=== PATIENT | female | born 1955 | race Caucasian/White ===

== ENCOUNTER → 2016-10-29 | Outpatient (CLI) | payer BC | END | disposition home or self-care (01) | LOC: MW.CHFP 14:06 | PROVIDERS: ATTEND Emergency Medicine | DX: R73.03 Prediabetes (principal); J01.90 Acute sinusitis, unspecified; R42 Dizziness and giddiness; I10 Essential (primary) hypertension | CPT/HCPCS: 36415; 80048; 83036; 85025; 85652 ==

== ENCOUNTER 2018-10-19 06:34 | Day surgery (SDC) | payer BC ==
[~2018-10-19 06:34] MED LIST: Lactated Ringers 1,000 ML IV SCH; Sodium Chloride 0.9% 10 ML SDV IV PRN; Sodium Chloride 0.9% 10 ML Syringe FLUSH PRN; Sodium Chloride 0.9% 2.5 ML Syringe FLUSH PRN
[2018-10-19] MEDS ORDERED: Bupivacaine 0.5% 10 ML SDV ONE (07:18)
[2018-10-19] MEDS ORDERED: Lidocaine 1% 20 ML MDV ONE (07:19)
[2018-10-19] MEDS ORDERED: methylPREDNISolone Acetate 40 MG/ML SDV INJECT ONE ×2 (07:45→08:15)
[2018-10-19] MEDS ORDERED: fentaNYL 100 MCG/2 ML SDV ONE (07:54)
[2018-10-19] MEDS ORDERED: Propofol 200 MG/20 ML SDV ONE (07:54)
[2018-10-19] MEDS ORDERED: Midazolam 1 MG/ML 2 ML SDV ONE (07:54)
[2018-10-19] MEDS ORDERED: Lidocaine 2% 5 ML SDV ONE (07:55)
[2018-10-19] MEDS ORDERED: Ondansetron 4 MG/2 ML SDV ONE (07:55)
[2018-10-19] MEDS ORDERED: Acetaminophen/HYDROcodone 325-5 MG Tab PO PRN (08:00)
[2018-10-19] MEDS ORDERED: Clindamycin Phosphate in D5W 900 MG in Premix Bag 1 BAG IV SCH ×2 (08:00)
--- NOTE | 2018-10-19 08:02 | PCM.PREANE ---
Preanesthetic Assessment - Anesthesia/Transfusion/Family Hx Anesthesia History: Prior Anesthesia Without Reaction Family History of Anesthesia Reaction: No Transfusion History: No Prior Transfusion(s) - Review of Systems General: No Symptoms Pulmonary: No Symptoms Cardiovascular: No Symptoms Gastrointestinal: No Symptoms Neurological: Other (radicular pain- takes gabipentin, CTS symptoms) - Physical Assessment NPO Status Date: 10/19/18 NPO Status Time: 05:30 O2 Sat by Pulse Oximetry: 97 Respiratory Rate: 18 Vital Signs: Last Vital Signs Temp 96.4 F 10/19/18 06:50 Pulse 58 L 10/19/18 06:50 Resp 18 10/19/18 06:50 BP 150/93 H 10/19/18 06:50 Pulse Ox 97 10/19/18 06:50 Height: 5 ft 3 in Weight: 83.461 kg ASA Class: 2 Mental Status: Alert & Oriented x3 Airway Class: Mallampati = 2 Dentition: Reports: Normal Dentition (overjet) ROM/Head Extension: Full Lungs: Clear to Auscultation, Normal Respiratory Effort Cardiovascular: Regular Rate, Regular Rhythm - Lab Values: Laboratory Last Values POC Glucose 92 mg/dL (60-110) 10/19/18 07:00 - Allergies Allergies/Adverse Reactions: Allergies Allergy/AdvReac Type Severity Reaction Status Date / Time erythromycin base Allergy Hives Verified 10/14/18 14:40 [Erythromycin Base] Fish Containing Products Allergy Difficulty Verified 10/14/18 14:40 Breathing levofloxacin Allergy Difficulty Verified 10/14/18 14:43 Breathing maltose Allergy Hives Verified 10/14/18 14:40 [From Bexxar 131 Iodine] Penicillins Allergy Rash Verified 10/14/18 14:40 shellfish derived Allergy Difficulty Verified 10/14/18 14:40 Breathing tositumomab iodine-131 Allergy Hives Verified 10/14/18 14:40 [From Bexxar 131 Iodine] - Blood Blood Available: No - Anesthesia Plan Pre-Op Medication Ordered: None - Acknowledgements Anesthesia Type Planned: General Anesthesia, MAC Pt an Appropriate Candidate for the Planned Anesthesia: Yes Alternatives and Risks of Anesthesia Discussed w Pt/Guardian: Yes Pt/Guardian Understands and Agrees with Anesthesia Plan: Yes PreAnesthesia Questionnaire HEENT History: Reports: Allergic Rhinitis, Other (See Below) Other HEENT History: wears glasses Cardiovascular History: Reports: High Cholesterol, Hypertension Respiratory History: Reports: None Gastrointestinal History: Reports: Diverticulosis, GERD Genitourinary History: Reports: None 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: Musculoskeletal History: Reports: Osteoarthritis Other Musculoskeletal History: left leg pain Neurological History: Reports: Other (See Below) Other Neuro History: essential tremors Psychiatric History: Reports: None Endocrine/Metabolic History: Reports: Diabetes, Type II, Obesity/BMI 30+ Hematologic History: Reports: None Immunologic History: Reports: None Oncologic (Cancer) History: Reports: None Dermatologic History: Reports: None - Past Surgical History Head Surgeries/Procedures: Reports: None HEENT Surgical History: Reports: None Cardiovascular Surgical History: Reports: None Respiratory Surgical History: Reports: None GI Surgical History: Reports: Colonoscopy Female Surgical History: Reports: Hysterectomy, Salpingo-Oophorectomy, Tubal Ligation Other Female Surgeries/Procedures: hx hysteroscopy Neurological Surgical History: Reports: None Musculoskeletal Surgical History: Reports: Arthroscopic Knee Other Musculoskeletal Surgeries/Procedures:: left foot bunionectomy Oncologic Surgical History: Reports: None Dermatological Surgical History: Reports: None - SUBSTANCE USE Smoking Status *Q: Former Smoker Recreational Drug Use History: No - HOME MEDS Home Medications: Home Meds Calcium Carbonate/Vitamin D3 [Caltrate 600 Plus D3 Tablet] 1 tab PO DAILY [History] Metoprolol Succinate [Toprol XL] 100 mg PO DAILY 09/26/15 [History] Omeprazole Magnesium [Prilosec Otc] 20 mg PO DAILY 09/26/15 [History] atorvaSTATin [Lipitor] 10 mg PO BEDTIME 09/26/15 [History] Ascorbic Acid [Vitamin C] 500 mg PO DAILY 10/14/18 [History] Gabapentin [Neurontin] 300 mg PO ASDIRECTED PRN 10/14/18 [History] Losartan/Hydrochlorothiazide [Losartan-HCTZ 100-25 MG] 1 tab PO DAILY 10/14/18 [ History] metFORMIN HCl [Metformin HCl ER] 500 mg PO BID 10/14/18 [History] - CURRENT (IN HOUSE) MEDS Current Meds: Current Medications Hydrocodone Bitart/Acetaminophen ([place] 325-5 Mg) 1 - 2 tab PO Q4H PRN PRN Reason: Pain Clindamycin Phosphate 900 mg/ (Premix) 50 mls @ 100 mls/hr IV ONCALL [facility] Last Admin: 10/19/18 07:17 Dose: 100 mls/hr Lactated Ringer's (Ringers, Lactated) 1,000 mls @ 100 mls/hr IV ASDIRECTED [facility] Last Admin: 10/19/18 07:00 Dose: 100 mls/hr Lactated Ringer's (Ringers, Lactated) 1,000 mls @ 125 mls/hr IV ASDIRECTED [facility] Sodium Chloride (Saline Flush) 10 ml FLUSH ASDIRECTED PRN PRN Reason: Keep Vein Open Sodium Chloride (Saline Flush) 2.5 ml FLUSH ASDIRECTED PRN PRN Reason: Keep Vein Open Sodium Chloride (Normal Saline) 10 ml IV ASDIRECTED PRN PRN Reason: IV Use Discontinued Medications Bupivacaine HCl (Sensorcaine-Mpf 0.5%) Confirm Administered Dose 20 ml .ROUTE .STK-MED ONE Stop: 10/19/18 07:19 Fentanyl (Sublimaze) Confirm Administered Dose 100 mcg .ROUTE .STK-MED ONE Stop: 10/19/18 07:55 Acetaminophen (Ofirmev) Confirm Administered Dose 100 mls @ as directed IV .STK- MED ONE Stop: 10/19/18 07:56 Lidocaine (Xylocaine-Mpf 2%) Confirm Administered Dose 5 ml .ROUTE .STK-MED ONE Stop: 10/19/18 07:56 Lidocaine HCl (Xylocaine 1%) Confirm Administered Dose 20 ml .ROUTE .STK-MED ONE Stop: 10/19/18 07:20 Methylprednisolone Acetate (Depo-Medrol) 40 mg INJECT ONETIME ONE Stop: 10/19/18 07:46 Midazolam HCl (Versed 1 Mg/Ml) Confirm Administered Dose 2 mg .ROUTE .STK-MED ONE Stop: 10/19/18 07:55 Ondansetron HCl (Zofran) Confirm Administered Dose 4 mg .ROUTE .STK-MED ONE Stop: 10/19/18 07:56 Propofol (Diprivan 20 Ml) Confirm Administered Dose 200 mg .ROUTE .STK-MED ONE Stop: 10/19/18 07:55
[2018-10-19 08:58] VITALS: BP 125/73
--- NOTE | 2018-10-19 09:12 | PCM.OPNOTE ---
- General Post-Op/Procedure Note Date of Surgery/Procedure: 10/19/18 Operative Procedure(s): L CTR. injection L and R thumb A1 meet Post-Op Diagnosis: L CTS, L and R thumb trigger finger Anesthesia Technique: Local, Moderate Sedation Primary Surgeon: Brittany Bazan Aemt: Isabella Weber in mLs: 5 Condition: Good Free Text/Narrative:: [id number]# tt=2 min
--- NOTE | 2018-10-19 09:14 | PCM.POSTAN ---
POST ANESTHESIA ASSESSMENT - MENTAL STATUS Mental Status: Alert, Oriented - RESPIRATORY Respiratory Status: Respiratory Rate WNL, Airway Patent, O2 Saturation Stable - CARDIOVASCULAR CV Status: Pulse Rate WNL, Blood Pressure Stable - GASTROINTESTINAL GI Status: No Symptoms - POST OP HYDRATION Hydration Status: Adequate & Stable
--- NOTE | 2018-10-19 09:14 | PCM48HPAN ---
Post Anesthesia Note - EVALUATION WITHIN 48HRS OF ANESTHETIC Vital Signs in Normal Range: Yes Patient Participated in Evaluation: Yes Respiratory Function Stable: Yes Airway Patent: Yes Cardiovascular Function Stable: Yes Hydration Status Stable: Yes Pain Control Satisfactory: Yes Nausea and Vomiting Control Satisfactory: Yes Mental Status Recovered: Yes Resp Rate: 16
[2018-10-19] MEDS ORDERED: fentaNYL 100 MCG/2 ML SDV IVPUSH PRN (09:16)
--- NOTE | 2018-10-19 13:57 | OR ---
SURGEON: Brittany Bazan MD DATE OF PROCEDURE: 10/19/2018 PREOPERATIVE DIAGNOSES: 1. Left carpal tunnel syndrome. 2. Left thumb trigger finger. 3. Right thumb trigger finger. POSTOPERATIVE DIAGNOSES: 1. Left carpal tunnel syndrome. 2. Left thumb trigger finger. 3. Right thumb trigger finger. PROCEDURES: 1. Left open carpal tunnel release. 2. Injection of left thumb A1 meet (tendon sheath). 3. Injection of right thumb A1 meet (tendon sheath). PAPER CUTTING MACHINE OPERATOR: Isabella Weber PA-C. ANESTHESIA: Local with sedation. ESTIMATED BLOOD LOSS: 5 mL. TOURNIQUET TIME: 2 minutes. COMPLICATIONS: None. DVT PROPHYLAXIS: Not indicated. IMPLANTS USED: None. BRIEF HISTORY: Riri is a 63-year-old female, who has had complaint of bilateral carpal tunnel syndrome. EMG/nerve conduction studies did confirm this. Her left was most symptomatic. Due to her lack of response to conservative treatment, I did recommend surgical intervention. She has also noted persistent triggering along the A1 meet of both thumbs. I recommended that we proceed with injection of this while she is under sedation. The risks and goals of the procedures were discussed with the patient and were documented preoperatively. She agreed to proceed. DESCRIPTION OF PROCEDURE: The patient was properly identified and brought to the operating room. The patient was transferred from the operating room cart and placed on the operating room table in the supine position. Sedation was administered. After adequate sedation was achieved, a well-padded tourniquet was applied to the left forearm. The upper extremity was then prepped in standard fashion using ChloraPrep solution. It was then sterilely draped. A time-out was performed to ensure correct site and procedure. Preoperative antibiotics were given. The surgical site had been marked preoperatively. A mixture of 1% Lidocaine and 0.25% Marcaine were injected along the area of anticipated incision. An Esmarch was used to exsanguinate the left upper extremity and the tourniquet was inflated to 200 millimeters of mercury. A fifteen blade scalpel used to make an incision over the volar aspect of the hand. The subcutaneous tissues and palmar fascia were incised down to the level of the transverse carpal ligament. Transverse carpal ligament was then incised. Care was taken to release the ligament distally to the level of fat and proximally into the forearm. At the completion, we had good decompression of the median nerve. No other abnormalities were identified. The wound was then copiously irrigated with saline solution. The tourniquet was deflated. Electrocautery was used to maintain hemostasis. The incision site was closed with 4-0 nylon. Xeroform gauze was placed over the wound and a bulky dressing was applied. The patient was awakened from the sedation and transferred back to the operating room cart. The patient was brought to the recovery room in stable condition. All needle and sponge counts were correct. DENA / KRYSTIAN /[id number]
== END 2018-10-19 09:22 | disposition home or self-care (01) ==
LOC: MW.SDS 06:34 → EDSTATUS 08:30 → MW.SDS 09:22
PROVIDERS: ATTEND Orthopaedic Surgery
DX: G56.03 Carpal tunnel syndrome, bilateral upper limbs (principal); M65.312 Trigger thumb, left thumb; M65.311 Trigger thumb, right thumb; I10 Essential (primary) hypertension; E11.9 Type 2 diabetes mellitus without complications; E78.00 Pure hypercholesterolemia, unspecified; K21.9 Gastro-esophageal reflux disease without esophagitis; M17.11 Unilateral primary osteoarthritis, right knee; Z88.1 Allergy status to other antibiotic agents; Z91.013 Allergy to seafood; Z88.0 Allergy status to penicillin; Z87.891 Personal history of nicotine dependence; Z79.84 Long term (current) use of oral hypoglycemic drugs; Z79.899 Other long term (current) drug therapy; Z91.048 Other nonmedicinal substance allergy status
CPT/HCPCS: 64721; 82962; J0131; J2001; J2250; J2405; J2704; J3010; J3490; J7120

== ENCOUNTER 2020-04-08 06:56 | Inpatient (IN) | payer BC ==
[~2020-04-08 06:56] MED LIST changes: +Famotidine 20 MG/2 ML SDV IVPUSH SCH; -Lactated Ringers 1,000 ML IV SCH; +Ropivacaine 49.25 ML, Ketorolac 30 MG, EPINEPHrine 0.5 MG, cloNIDine 80 MCG in Sodium C... INJECT SCH; +Scopolamine 1.5 MG Transdermal Patch TRDERM SCH; -Sodium Chloride 0.9% 10 ML SDV IV PRN; -Sodium Chloride 0.9% 10 ML Syringe FLUSH PRN; -Sodium Chloride 0.9% 2.5 ML Syringe FLUSH PRN
[2020-04-08] MEDS ORDERED: Propofol 200 MG/20 ML SDV ONE (07:06)
[2020-04-08] MEDS ORDERED: fentaNYL 100 MCG/2 ML SDV ONE (07:06)
[2020-04-08] MEDS ORDERED: Midazolam 1 MG/ML 2 ML SDV ONE (07:07)
[2020-04-08] MEDS ORDERED: Ondansetron 4 MG/2 ML SDV ONE (07:09)
[2020-04-08] MEDS ORDERED: Lidocaine 2% 5 ML SDV ONE (07:09)
[2020-04-08] MEDS ORDERED: Glycopyrrolate 0.2 MG/ML SDV ONE (07:09)
[2020-04-08] MEDS ORDERED: Ketorolac 30 MG/ML SDV ONE (07:09)
[2020-04-08] MEDS ORDERED: Bupivacaine 0.5% 10 ML SDV ONE (07:21)
[2020-04-08] MEDS ORDERED: Scopolamine 1.5 MG Transdermal Patch ONE (07:26)
[2020-04-08] MEDS ORDERED: Famotidine 20 MG/2 ML SDV ONE (07:29)
[2020-04-08] MEDS ORDERED: ceFAZolin 1 GM Vial ONE (07:56)
[2020-04-08] MEDS ORDERED: Sodium Chloride 0.9% 20 ML ONE (07:56)
[2020-04-08] MEDS ORDERED: Tranexamic Acid 1,000 MG in Sodium Chloride 0.9% 100 ML IV ONE (08:00)
--- NOTE | 2020-04-08 08:13 | PCM.PREANE ---
Preanesthetic Assessment - Anesthesia/Transfusion/Family Hx Anesthesia History: Prior Anesthesia Without Reaction Family History of Anesthesia Reaction: No Transfusion History: No Prior Transfusion(s) Intubation History: Unknown - Review of Systems General: No Symptoms Pulmonary: No Symptoms Cardiovascular: No Symptoms Gastrointestinal: No Symptoms Neurological: No Symptoms Other: Reports: None - Physical Assessment Height: 5 ft Weight: 86.636 kg ASA Class: 3 Mental Status: Alert & Oriented x3 Airway Class: Mallampati = 2 Dentition: Reports: Normal Dentition Thyro-Mental Finger Breadths: 2 Mouth Opening Finger Breadths: 3 ROM/Head Extension: Full Lungs: Clear to Auscultation, Normal Respiratory Effort Cardiovascular: Regular Rate, Regular Rhythm - Lab Values: Laboratory Last Values SARS-CoV-2 RNA (COCO) NEGATIVE (NEGATIVE) 04/08/20 06:43 - Allergies Allergies/Adverse Reactions: Allergies Allergy/AdvReac Type Severity Reaction Status Date / Time erythromycin base Allergy Hives Verified 04/02/20 10:59 [Erythromycin Base] Fish Containing Products Allergy Difficulty Verified 04/02/20 10:59 Breathing levofloxacin Allergy Difficulty Verified 04/02/20 10:59 Breathing maltose Allergy Hives Verified 04/02/20 10:59 [From Bexxar 131 Iodine] Penicillins Allergy Rash Verified 04/02/20 10:59 shellfish derived Allergy Difficulty Verified 04/02/20 10:59 Breathing tositumomab iodine-131 Allergy Hives Verified 04/02/20 10:59 [From Bexxar 131 Iodine] - Blood Blood Available: No - Anesthesia Plan Pre-Op Medication Ordered: None - Acknowledgements Anesthesia Type Planned: Spinal (general anesthesia back-up call) Pt an Appropriate Candidate for the Planned Anesthesia: Yes Alternatives and Risks of Anesthesia Discussed w Pt/Guardian: Yes Pt/Guardian Understands and Agrees with Anesthesia Plan: Yes PreAnesthesia Questionnaire HEENT History: Reports: Allergic Rhinitis, Other (See Below) Other HEENT History: wears glasses Cardiovascular History: Reports: High Cholesterol, Hypertension Respiratory History: Reports: None Gastrointestinal History: Reports: Diverticulosis, GERD Genitourinary History: Reports: None 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: Musculoskeletal History: Reports: Osteoarthritis Other Musculoskeletal History: left leg pain Neurological History: Reports: Other (See Below) Other Neuro History: essential tremors Psychiatric History: Reports: None Endocrine/Metabolic History: Reports: Diabetes, Type II, Obesity/BMI 30+ Other Endocrine/Metabolic History: states is not diabetic but takes metformin to "keep the levels good" Hematologic History: Reports: None Immunologic History: Reports: None Oncologic (Cancer) History: Reports: None Dermatologic History: Reports: None, Other (See Below) (lymphedema lower extremity) - Past Surgical History GI Surgical History: Reports: Colonoscopy ('13) Female Surgical History: Reports: Hysterectomy, Salpingo-Oophorectomy, Tubal Ligation Musculoskeletal Surgical History: Reports: Arthroscopic Knee Other Musculoskeletal Surgeries/Procedures:: left foot bunionectomy - SUBSTANCE USE Smoking Status *Q: Former Smoker Tobacco Use Within Last Twelve Months: No Recreational Drug Use History: No - HOME MEDS Home Medications: Home Meds Calcium Carbonate/Vitamin D3 [Caltrate 600 Plus D3 Tablet] 1 tab PO DAILY 09/26/15 [History] Metoprolol Succinate [Toprol XL] 100 mg PO QAM 09/26/15 [History] Omeprazole Magnesium [Prilosec Otc] 20 mg PO QAM 09/26/15 [History] atorvaSTATin [Lipitor] 10 mg PO BEDTIME 09/26/15 [History] Ascorbic Acid [Vitamin C] 500 mg PO DAILY 10/14/18 [History] Gabapentin [Neurontin] 600 mg PO TID PRN 10/14/18 [History] metFORMIN HCl [Metformin HCl ER] 500 mg PO BID 10/14/18 [History] Acetaminophen [Tylenol 8 Hour] 2 tab PO TID 04/02/20 [History] Losartan Potassium 100 mg PO QAM 04/02/20 [History] hydroCHLOROthiazide [Hydrochlorothiazide] 25 mg PO QAM 04/02/20 [History] - CURRENT (IN HOUSE) MEDS Current Meds: Current Medications Famotidine (Pepcid) 40 mg IVPUSH ONARRIVE [facility] Tranexamic Acid 1,000 mg/ (Sodium Chloride) 110 mls @ 600 mls/hr IV ASDIRECTED ONE Stop: 04/08/20 08:10 Ropivacaine 49.25 ml/Ketorolac Tromethamine 30 mg/Epinephrine HCl 0.5 mg/Clonidine HCl 80 mcg/ Sodium Chloride 75 mls @ 50 mls/sec INJECT ASDIRECTED [facility] Clindamycin Phosphate 900 mg/ (Premix) 50 mls @ 100 mls/hr IV ONCALL [facility] Lactated Ringer's (Ringers, Lactated) 1,000 mls @ 100 mls/hr IV ASDIRECTED [facility] Scopolamine (Transderm-Scop) 1.5 mg TRDERM ONARRIVE [facility] Discontinued Medications Bupivacaine HCl (Sensorcaine-Mpf 0.5%) Confirm Administered Dose 10 ml .ROUTE .STK-MED ONE Stop: 04/08/20 07:22 Cefazolin Sodium (Ancef) Confirm Administered Dose 2 gm .ROUTE .STK-MED ONE Stop: 04/08/20 07:57 Famotidine (Pepcid) Confirm Administered Dose 40 mg .ROUTE .STK-MED ONE Stop: 04/08/20 07:30 Fentanyl (Sublimaze) Confirm Administered Dose 100 mcg .ROUTE .STK-MED ONE Stop: 04/08/20 07:07 Glycopyrrolate (Robinul) Confirm Administered Dose 0.2 mg .ROUTE .STK-MED ONE Stop: 04/08/20 07:10 Sodium Chloride (Normal Saline) Confirm Administered Dose 20 mls @ as directed .ROUTE .STK-MED ONE Stop: 04/08/20 07:57 Ketorolac Tromethamine (Toradol) Confirm Administered Dose 30 mg .ROUTE .STK-MED ONE Stop: 04/08/20 07:10 Lidocaine (Xylocaine-Mpf 2%) Confirm Administered Dose 5 ml .ROUTE .STK-MED ONE Stop: 04/08/20 07:10 Midazolam HCl (Versed 1 Mg/Ml) Confirm Administered Dose 2 mg .ROUTE .STK-MED ONE Stop: 04/08/20 07:08 Ondansetron HCl (Zofran) Confirm Administered Dose 4 mg .ROUTE .STK-MED ONE Stop: 04/08/20 07:10 Propofol (Diprivan 20 Ml) Confirm Administered Dose 200 mg .ROUTE .STK-MED ONE Stop: 04/08/20 07:07 Scopolamine (Transderm-Scop) Confirm Administered Dose 1.5 mg .ROUTE .STK-MED ONE Stop: 04/08/20 07:27
[2020-04-08] MEDS: Clindamycin Phosphate in D5W 900 MG in Premix Bag 1 BAG IV SCH ×8 (08:31→19:54)
[2020-04-08] MEDS: Lactated Ringers 1,000 ML IV SCH ×2 (08:31→22:37)
[2020-04-08] MEDS ORDERED: Bupivacaine 0.25% 10 ML SDV ONE (11:03)
[2020-04-08] MEDS ORDERED: Bisacodyl 10 MG Supp RECTAL PRN (11:06)
[2020-04-08] MEDS ORDERED: traMADol 50 MG Tab PO PRN (11:06)
[2020-04-08] MEDS ORDERED: Sodium Chloride 0.9% 2.5 ML Syringe FLUSH PRN (11:06)
[2020-04-08] MEDS ORDERED: oxyCODONE 5 MG Tab PO PRN (11:06)
[2020-04-08] MEDS ORDERED: Docusate Sodium 100 MG Cap PO PRN (11:06)
[2020-04-08] MEDS ORDERED: Morphine 2 MG/ML SYRINGE IVPUSH PRN (11:06)
[2020-04-08] MEDS ORDERED: Ondansetron 4 MG/2 ML SDV IVPUSH PRN (11:06)
[2020-04-08] MEDS ORDERED: Aluminum Hydroxide/Magnesium Hydroxide/Simethicone Susp 30 ML Cup PO PRN (11:06)
[2020-04-08] MEDS ORDERED: diphenhydrAMINE 25 MG Cap PO PRN (11:06)
[2020-04-08] MEDS ORDERED: Sodium Chloride 0.9% 10 ML Syringe FLUSH PRN (11:06)
--- NOTE | 2020-04-08 11:27 | PCM.OPNOTE ---
- General Post-Op/Procedure Note Date of Surgery/Procedure: 04/08/20 Operative Procedure(s): Right total knee replacement using Leblanc and NephNavendis knee system Findings: Right knee medial compartment grade 4 arthritis, lateral compartment grade 1 arthritis, patellofemoral joint grade 2 arthritis Pre Op Diagnosis: Right knee grade 4 medial compartment osteoarthritis Post-Op Diagnosis: Right knee grade 4 medial compartment osteoarthritis Anesthesia Technique: General LMA, Spinal Primary Surgeon: Prakash Centeno Mechanical Assembly: Bria Mcdonald Mechanical Assembly Was Necessary: Retraction and positioning Pathology: Bone cuts and soft tissue excised to pathology for review EBL in mLs: 5 Complications: None Free Text/Narrative:: The risks and benefits of surgery were reviewed with the patient. Patient was medically optimized and cleared for surgery. Patient consented to proceed with surgery. Patient was taken to the operating room. After adequate spinal and general anesthesia, she was placed in a supine position. Tourniquet was placed around the right proximal thigh. Right lower extremities prepped and draped in usual sterile manner. The leg elevated and the tourniquet inflated. Midline incision centered over the patella was made with a scalpel. Subcutaneous tissue was incised electrocautery. Medial parapatellar arthrotomy was performed and the patella was everted laterally. Soft tissues were excised. The distal femur was exposed. An intramedullary cutting guide was used. The femur was sized to a #4 cruciate retaining component. Lug holes were punched. The tibia was cut with an intramedullary alignment guide. The tibia sized to #4. Patient had good range of motion and stability with a 13 millimeter polyethylene insert. The patella was cut with a constrained cutting guide. Soft tissues and osteophytes were removed with a rongeur. The patella was sized to a 35 mm resurfacing component. Trial components were removed. Bone surfaces were pulse lavaged. The components were sequentially cemented with antibiotic cement starting at the #4 tibia, excess cement was removed, and the 3 mm polyethylene insert inserted. The femoral cruciate retaining #4 component was inserted and excess antibiotic cement removed. The 35 mm patellar polyethylene component was cemented and excess cement removed. The cement was allowed to harden and the knee was reinspected removing any excess cement. Periarticular injections were performed with the multidrug cocktail. The joint was pulse lavage. The retinaculum was repaired with interrupted #1 Vicryl sutures. Deep subcutaneous tissue was closed with #1 interrupted Vicryl suture. Subcutaneous tissue was closed with interrupted 2-0 Vicryl sutures. Running subcuticular Monocryl suture was used for final closure. Sterile dressings were applied and the patient was accompanied to recovery in stable condition. Pain management: Periarticular injections, abductor canal nerve block, Toradol, oxycodone, acetaminophen. Venous thromboembolism prophylaxis: Aspirin enteric-coated 325 mg daily for 90 days because patient has no personal or family history of venous thromboembolic events. Antibiotic prophylaxis: Patient will receive clindamycin intravenous for 24 hours. Because she is high risk for infection with her diabetes and soft tissue envelope around the knee, she will have oral antibiotics for 7 days after completing her intravenous antibiotics. Restrictions: Patient is weightbearing as tolerated on her right lower extremity with assistive device as needed. She has full range of motion of the knee. She should receive physical therapy according the total knee arthroplasty protocol. No restrictions. Intake & Output 04/07/20 04/08/20 04/08/20 22:59 06:59 14:59 Intake Total 0 Balance 0
--- NOTE | 2020-04-08 12:06 | PCM.POSTAN ---
POST ANESTHESIA ASSESSMENT - MENTAL STATUS Mental Status: Alert - VITAL SIGNS Vital Signs: Last Vital Signs Temp 37.0 C 04/08/20 10:58 Pulse 61 04/08/20 11:58 Resp 14 04/08/20 11:58 BP 107/60 04/08/20 11:58 Pulse Ox 96 04/08/20 11:58 - RESPIRATORY Respiratory Status: Respiratory Rate WNL - CARDIOVASCULAR CV Status: Pulse Rate WNL - GASTROINTESTINAL GI Status: No Symptoms - POST OP HYDRATION Hydration Status: Adequate & Stable
--- NOTE | 2020-04-08 12:06 | PCM.PRNOTE ---
- Free Text/Narrative Note: Anes Note Right adductor canal block with ultrasound guidance performed as requested by surgoen for post op pain relief. IN the PACu, while fully monitroed this block was performed under sterile technique. The right anterior thigh was prepped with betadine. Using ultrasound guidance, the landmarks were identified at 3-4 cm depth. The nerve was identified just lateral and posterior to the femoral artery. Excellent spread of local anesthesia was noted, just posterior tot he nerve. Careful aspiration resulted in no blood return. A total of 30 cc 0.25% bupivicaine was slowly and cautious injected in divided doses. Tolerated well. Time with patient [id number] Roberto Cruz CRNA
--- NOTE | 2020-04-08 12:38 | PCM.CONS ---
H&P History of Present Illness - General Date of Service: 04/08/20 Admit Problem/Dx: Right knee osteoarthritis s/p RIGHT TOTAL KNEE ARTHROPLASTY Source of Information: Patient History Limitations: Reports: No Limitations - History of Present Illness Initial Comments - Free Text/Narative: This 64-year-old female with past medical history of hypertension hyperlipidemia essential tremor and type 2 diabetes presented today for right TKA with Dr. Centeno. Hospital service was consulted for medical management of comorbidities. Patient recently arrived to [facility] unit from PACU. She is alert and oriented. Complaining of right-sided headache and requesting some Tylenol. Denies any blurred vision double vision or other focal neurological deficits. She denies any knee pain at this time. Reports that she has been doing well prior to surgery. Reports that if she has a history of hypertension and has been compliant with medications at home. Reports A1c recently was 6.1, she is taking metformin. She currently denies any chest pain shortness of breath or abdominal pain. Reports she has a family history of CT in her father who had a CT in his 40s. She denies any alcohol use tobacco use or recreational drug use. - Related Data Allergies/Adverse Reactions: Allergies Allergy/AdvReac Type Severity Reaction Status Date / Time erythromycin base Allergy Hives Verified 04/08/20 08:34 [Erythromycin Base] Fish Containing Products Allergy Difficulty Verified 04/08/20 08:34 Breathing levofloxacin Allergy Difficulty Verified 04/08/20 08:34 Breathing maltose Allergy Hives Verified 04/08/20 08:34 [From Bexxar 131 Iodine] Penicillins Allergy Rash Verified 04/08/20 08:34 shellfish derived Allergy Difficulty Verified 04/08/20 08:34 Breathing tositumomab iodine-131 Allergy Hives Verified 04/08/20 08:34 [From Bexxar 131 Iodine] Home Medications: Home Meds Calcium Carbonate/Vitamin D3 [Caltrate 600 Plus D3 Tablet] 1 tab PO DAILY 09/26/15 [History] Metoprolol Succinate [Toprol XL] 100 mg PO QAM 09/26/15 [History] Omeprazole Magnesium [Prilosec Otc] 20 mg PO QAM 09/26/15 [History] atorvaSTATin [Lipitor] 10 mg PO BEDTIME 09/26/15 [History] Ascorbic Acid [Vitamin C] 500 mg PO DAILY 10/14/18 [History] Gabapentin [Neurontin] 600 mg PO TID PRN 10/14/18 [History] metFORMIN HCl [Metformin HCl ER] 500 mg PO BID 10/14/18 [History] Acetaminophen [Tylenol 8 Hour] 2 tab PO TID 04/02/20 [History] Losartan Potassium 100 mg PO QAM 04/02/20 [History] hydroCHLOROthiazide [Hydrochlorothiazide] 25 mg PO QAM 04/02/20 [History] Aspirin 325 mg PO DAILY #90 tablet 04/08/20 [Rx] Clindamycin HCl 300 mg PO TID 7 Days #21 capsule 04/08/20 [Rx] Docusate Sodium [Colace] 100 mg PO BID PRN cap 04/08/20 [Rx] polyethylene glycoL 3350 [MiraLAX] 17 gm PO DAILY packet 04/08/20 [Rx] Past Medical History HEENT History: Reports: Allergic Rhinitis, Other (See Below) Other HEENT History: wears glasses Cardiovascular History: Reports: High Cholesterol, Hypertension Respiratory History: Reports: None Gastrointestinal History: Reports: Diverticulosis, GERD Genitourinary History: Reports: None [employer] History: Reports: Musculoskeletal History: Reports: Osteoarthritis Other Musculoskeletal History: left leg pain Neurological History: Reports: Other (See Below) Other Neuro History: essential tremors Psychiatric History: Reports: None Endocrine/Metabolic History: Reports: Diabetes, Type II, Obesity/BMI 30+ Other Endocrine/Metabolic History: states is not diabetic but takes metformin to "keep the levels good" Hematologic History: Reports: None Immunologic History: Reports: None Oncologic (Cancer) History: Reports: None Dermatologic History: Reports: None, Other (See Below) - Past Surgical History Head Surgeries/Procedures: Reports: None HEENT Surgical History: Reports: None Cardiovascular Surgical History: Reports: None Respiratory Surgical History: Reports: None GI Surgical History: Reports: Colonoscopy Female Surgical History: Reports: Hysterectomy, Salpingo-Oophorectomy, Tubal Ligation Other Female Surgeries/Procedures: hx hysteroscopy Neurological Surgical History: Reports: None Musculoskeletal Surgical History: Reports: Arthroscopic Knee Other Musculoskeletal Surgeries/Procedures:: left foot bunionectomy Oncologic Surgical History: Reports: None Dermatological Surgical History: Reports: None Social & Family History - Tobacco Use Smoking Status *Q: Former Smoker Used Tobacco, but Quit: Yes Month/Year Tobacco Last Used: 2001 - Recreational Drug Use Recreational Drug Use: No Drug Use in Last 12 Months: No H&P Review of Systems - Review of Systems: Review Of Systems: See Below General: Reports: No Symptoms. Denies: Fever, Chills, Malaise HEENT: Reports: Headaches Pulmonary: Reports: No Symptoms. Denies: Shortness of Breath Cardiovascular: Reports: No Symptoms. Denies: Chest Pain Gastrointestinal: Denies: Abdominal Pain Genitourinary: Reports: No Symptoms Musculoskeletal: Reports: No Symptoms Skin: Reports: No Symptoms Psychiatric: Reports: No Symptoms Neurological: Reports: No Symptoms Hematologic/Lymphatic: Reports: No Symptoms Immunologic: Reports: No Symptoms Exam - Exam Exam: See Below - Vital Signs Vital Signs: Last Vital Signs Temp 98.6 F 04/08/20 10:58 Pulse 61 04/08/20 11:58 Resp 14 04/08/20 11:58 BP 107/60 04/08/20 11:58 Pulse Ox 96 04/08/20 11:58 Weight: 86.636 kg - Exam General: Alert, Oriented, Cooperative HEENT: Conjunctiva Clear, Hearing Intact, Mucosa Moist & Pabellones, Pupils Equal, Pupils Reactive Neck: Supple Lungs: Clear to Auscultation, Normal Respiratory Effort Cardiovascular: Regular Rate, Regular Rhythm GI/Abdominal Exam: Normal Bowel Sounds, Soft, Non-Tender Extremities: Normal Inspection, Normal Range of Motion, Non-Tender, Normal Capillary Refill, Pedal Edema (+1 pitting edema bilaterally) Skin: Warm, Dry, Intact, Incision (R knee, SRINATH wrap intact) Neurological: Cranial Nerves Intact Neuro Extensive - Mental Status: Alert, Oriented x3 Neuro Extensive - Motor, Sensory, Reflexes: CN II-XII Intact Psychiatric: Alert, Normal Affect, Normal Mood - Patient Data Lab Results Last 24 hrs: Laboratory Results - last 24 hr 04/08/20 04/08/20 04/08/20 Range/Units 06:43 07:58 08:05 POC Glucose 96 (60-110) mg/dL SARS-CoV-2 RNA (COCO) NEGATIVE (NEGATIVE) Blood Type A POSITIVE Antibody Screen NEGATIVE 04/08/20 Range/Units 11:42 POC Glucose 87 (60-110) mg/dL SARS-CoV-2 RNA (COCO) (NEGATIVE) Blood Type Antibody Screen Sepsis Event Note - Focused Exam Vital Signs: Vital Signs Temp Pulse Resp BP Pulse Ox 04/08/20 11:58 61 14 107/60 96 04/08/20 11:53 60 13 110/50 L 96 04/08/20 11:48 59 L 14 113/57 L 95 04/08/20 11:43 58 L 14 101/57 L 97 04/08/20 11:40 60 13 111/56 L 97 04/08/20 11:33 61 11 L 111/48 L 97 04/08/20 11:28 63 15 109/52 L 96 04/08/20 11:23 63 13 99/47 L 100 04/08/20 11:18 61 14 114/50 L 98 04/08/20 11:13 67 12 96/51 L 97 04/08/20 11:08 64 14 104/49 L 96 04/08/20 11:04 68 12 103/52 L 96 04/08/20 10:58 98.6 F 70 13 119/49 L 97 04/08/20 08:10 96.6 F L 62 16 183/83 H 98 Consult PN Assessment/Plan POD#: 0 Procedures: Procedures ALANINE AMINO (ALT) (SGPT) (05/10/19) ASSAY OF SERUM POTASSIUM (05/10/15) BLOOD TYPING SEROLOGIC ABO (09/30/15) BLOOD TYPING SEROLOGIC RH(D) (09/30/15) BREAST TOMOSYNTHESIS BI (09/07/19) C-REACTIVE PROTEIN (05/18/17) CARPAL TUNNEL SURGERY (10/19/18) COMP SCREEN MAMMOGRAM ADD-ON (05/19/16) COMPLETE CBC AUTOMATED (03/19/20) COMPLETE CBC W/AUTO DIFF WBC (05/18/17) COMPREHEN METABOLIC PANEL (04/19/17) CULTURE OTHR SPECIMN AEROBIC (03/19/20) CYTOPATH FL NONGYN SMEARS (09/30/15) DXA BONE DENSITY AXIAL (05/19/16) ELECTROCARDIOGRAM TRACING (09/30/15) EXTREMITY STUDY (11/09/19) GLUCOSE BLOOD TEST (10/19/18) GLYCOSYLATED HEMOGLOBIN TEST (03/19/20) HPV HIGH-RISK TYPES (04/19/15) HYDRATE IV INFUSION ADD-ON (09/30/15) LAPARO-VAG HYST INCL T/O (09/30/15) LIPID PANEL (05/10/19) METABOLIC PANEL TOTAL CA (03/19/20) MRI LOWER EXTREMITY W/O DYE (08/10/17) PROTHROMBIN TIME (03/19/20) RBC ANTIBODY SCREEN (09/30/15) RBC SED RATE AUTOMATED (05/18/17) ROUTINE VENIPUNCTURE (03/19/20) SCR MAMMO BI INCL CAD (09/07/19) THER/PROPH/DIAG INJ IV PUSH (09/30/15) TISSUE EXAM BY PATHOLOGIST (09/30/15) TISSUE EXAM BY PATHOLOGIST (09/30/15) TISSUE EXAM BY PATHOLOGIST (06/10/15) TX/PRO/DX INJ SAME DRUG BROOMMAKER (09/30/15) URINALYSIS AUTO W/O SCOPE (03/19/20) URINALYSIS AUTO W/SCOPE (05/04/18) VIT D 1 25-DIHYDROXY (05/18/14) VITAMIN B-12 (05/18/14) X-RAY EXAM CHEST 2 VIEWS (03/19/20) X-RAY EXAM KNEE 4 OR MORE (11/09/19) X-RAY EXAM OF ANKLE (11/09/19) X-RAY EXAM OF KNEE 1 OR 2 (11/14/19) X-RAY EXAM OF WRIST (10/06/18) (1) S/P total knee arthroplasty SNOMED Code(s): 3106356528738, 284315104, 5070447128532 Code(s): Z96.659 - PRESENCE OF UNSPECIFIED ARTIFICIAL KNEE JOINT Current Visit: Yes Qualifiers: Laterality: right Qualified Code(s): Z96.651 - Presence of right artificial knee joint (2) HTN (hypertension) SNOMED Code(s): 08033260 Code(s): I10 - ESSENTIAL (PRIMARY) HYPERTENSION Current Visit: Yes Qualifiers: Hypertension type: essential hypertension Qualified Code(s): I10 - Essen tial (primary) hypertension (3) HLD (hyperlipidemia) SNOMED Code(s): 83910447 Code(s): E78.5 - HYPERLIPIDEMIA, UNSPECIFIED Current Visit: Yes Qualifiers: Hyperlipidemia type: mixed hyperlipidemia Qualified Code(s): E78.2 - Mixed hyperlipidemia (4) DM type 2 (diabetes mellitus, type 2) SNOMED Code(s): 75991067 Code(s): E11.9 - TYPE 2 DIABETES MELLITUS WITHOUT COMPLICATIONS Current Visit: Yes Qualifiers: Diabetes mellitus jail insulin use: without jail use Diabetes mellitus complication status: without complication Qualified Code(s): E11.9 - Type 2 diabetes mellitus without complications Problem List Initiated/Reviewed/Updated: Yes My Orders Last 24 Hours: My Active Orders 04/08/20 12:35 Blood Glucose Check, Bedside [RC] TIDAC BMP [BASIC METABOLIC PANEL,BMP] [CHEM] Routine CBC WITH AUTO DIFF [HEME] Routine 04/08/20 12:36 MAGNESIUM [CHEM] Routine 04/08/20 17:00 Insulin Aspart [NovoLOG] See Protocol SUBCUT TIDAC Plan: This 64-year-old admitted with right TKA. Hospitalist service consulted for medical management of comorbidities. 1. S/p right TKA -Orders per orthopedics - ASA ordered 2. Hypertension/HLD -Continue losartan, metoprolol, HCTZ -Monitor BMPs and mg daily -Continue statin 3. DM type II -Hold metformin -NovoLog sliding scale with blood sugar checks before meals VTE prophylaxis: Would recommend when deemed appropriate by Orthopedics
[2020-04-08] MEDS ORDERED: Acetaminophen 325 MG Tab PO PRN (12:46)
--- NOTE | 2020-04-08 12:46 | CR ---
HISTORY: Total knee arthroplasty. TECHNIQUE: Right knee 2 views. COMPARISON: Knee radiographs 08/25/2019. FINDINGS: Total knee arthroplasty patellar resurfacing. Hardware appears intact. No fracture. Postoperative soft tissue gas. Small rounded calcifications in the lower leg subcutaneous fat from remote injuries. IMPRESSION: New total knee arthroplasty. Dictated by Adan Ohara MD @ Apr 08 2020 12:43PM Signed by Dr. Adan Ohara @ Apr 08 2020 12:44PM
[2020-04-08 13:31] LABS: BLOOD UREA NITROGEN,BUN 11 mg/dL (7.0-18.0); CARBON DIOXIDE,CO2 27.3 mmol/L (21.0-32.0); CHLORIDE,CL 100 mmol/L (98-107); GLUCOSE RANDOM 98 mg/dL (74-106); POTASSIUM,K 4.3 mmol/L (3.5-5.1); SODIUM,NA 135 mmol/L (136-145)
[2020-04-08] MEDS ORDERED: Magnesium Sulfate/Water 4 GM in Premix Bag 1 BAG IV ONE (15:40)
[2020-04-08] MEDS: Insulin Aspart 100 Units/ML 3 ML Pen SUBCUT SCH (17:00)
[2020-04-08] MEDS: Ketorolac 15 MG/ML SDV IVPUSH SCH ×2 (17:45→22:40)
[2020-04-08] MEDS ORDERED: Sodium Chloride 0.9% 1,000 ML IV ONE (17:57)
[2020-04-08] MEDS: Aspirin 325 MG Tab PO SCH (19:28)
[2020-04-08] MEDS ORDERED: atorvaSTATin 10 MG Tab PO SCH (21:00)
[2020-04-09] MEDS: Clindamycin Phosphate in D5W 900 MG in Premix Bag 1 BAG IV SCH ×2 (00:27)
[2020-04-09 06:18] LABS: BLOOD UREA NITROGEN,BUN 14 mg/dL (7.0-18.0); CARBON DIOXIDE,CO2 25.9 mmol/L (21.0-32.0); CHLORIDE,CL 100 mmol/L (98-107); GLUCOSE RANDOM 114 mg/dL (74-106); POTASSIUM,K 4.4 mmol/L (3.5-5.1); SODIUM,NA 132 mmol/L (136-145)
[2020-04-09] MEDS: Ketorolac 15 MG/ML SDV IVPUSH SCH (06:40)
[2020-04-09] MEDS: Insulin Aspart 100 Units/ML 3 ML Pen SUBCUT SCH (07:04)
[2020-04-09 07:30] VITALS: BP 144/66; PULSE 74
--- NOTE | 2020-04-09 08:09 | PCM48HPAN ---
Post Anesthesia Note - EVALUATION WITHIN 48HRS OF ANESTHETIC Vital Signs in Normal Range: Yes Patient Participated in Evaluation: Yes Respiratory Function Stable: Yes Airway Patent: Yes Cardiovascular Function Stable: Yes Hydration Status Stable: Yes Pain Control Satisfactory: Yes (Denies pain at this time) Nausea and Vomiting Control Satisfactory: Yes (Taking PO well, denies nausea) Mental Status Recovered: Yes Vital Signs: Last Vital Signs Temp 37.0 C 04/09/20 07:28 Pulse 74 04/09/20 07:28 Resp 16 04/09/20 07:28 BP 144/66 H 04/09/20 07:28 Pulse Ox 97 04/09/20 07:28 - COMMENTS/OBSERVATIONS Free Text/Narrative:: Ambulated with PT.
[2020-04-09] MEDS ORDERED: Metoprolol Succinate 100 MG Tab.ER PO SCH (09:00)
[2020-04-09] MEDS ORDERED: Famotidine 20 MG Tab PO SCH (09:00)
[2020-04-09] MEDS ORDERED: Hydrochlorothiazide 25 MG Tab PO SCH (09:00)
[2020-04-09] MEDS ORDERED: Losartan 50 MG Tab PO SCH (09:00)
[2020-04-09] MEDS ORDERED: Calcium Carbonate/Vitamin D3 1500 MG-400 Units Tab PO SCH (09:00)
[2020-04-09] MEDS ORDERED: Polyethylene Glycol 3350 Powder 17 GM Packet PO SCH (09:00)
[2020-04-09] MEDS: Aspirin 325 MG Tab PO SCH (09:04)
--- NOTE | 2020-04-09 09:33 | PCM.CONSN ---
- General Info Date of Service: 04/09/20 Admission Dx/Problem (Free Text): Right knee osteoarthritis s/p RIGHT TOTAL KNEE ARTHROPLASTY Subjective Update: Doing well this morning, pain well controlled. BP improved after bolus. No chest pain or SOB. Eager to go home. - Review of Systems General: Reports: No Symptoms. Denies: Weakness, Fatigue Pulmonary: Reports: No Symptoms. Denies: Shortness of Breath Cardiovascular: Reports: No Symptoms. Denies: Chest Pain Gastrointestinal: Reports: No Symptoms. Denies: Abdominal Pain Musculoskeletal: Reports: Joint Pain (R knee) Skin: Reports: No Symptoms Neurological: Reports: No Symptoms Psychiatric: Reports: No Symptoms - Patient Data Vitals - Most Recent: Last Vital Signs Temp 98.6 F 04/09/20 07:28 Pulse 74 04/09/20 09:04 Resp 16 04/09/20 07:28 BP 144/66 H 04/09/20 09:30 Pulse Ox 97 04/09/20 07:28 Weight - Most Recent: 86.636 kg I&O - Last 24 Hours: Intake & Output 04/08/20 04/09/20 04/09/20 22:59 06:59 14:59 Intake Total 500 350 Output Total 0 Balance 500 350 Lab Results Last 24 Hours: Laboratory Results - last 24 hr 04/08/20 04/08/20 04/08/20 Range/Units 08:05 11:42 13:02 WBC 6.14 (4.0-11.0) K/uL RBC 3.74 L (4.30-5.90) M/uL Hgb 11.9 L (12.0-16.0) g/dL Hct 35.6 L (36.0-46.0) % MCV 95.2 (80.0-98.0) fL MCH 31.8 (27.0-32.0) pg MCHC 33.4 (31.0-37.0) g/dL RDW Std Deviation 41.6 (28.0-62.0) fl RDW Coeff of Francine 12 (11.0-15.0) % Plt Count 211 (150-400) K/uL MPV 11.40 (7.40-12.00) fL Neut % (Auto) 58.8 (48.0-80.0) % Lymph % (Auto) 30.6 (16.0-40.0) % Travis % (Auto) 8.5 (0.0-15.0) % Eos % (Auto) 1.6 (0.0-7.0) % Baso % (Auto) 0.5 (0.0-1.5) % Neut # (Auto) 3.6 (1.4-5.7) K/uL Lymph # (Auto) 1.9 (0.6-2.4) K/uL Travis # (Auto) 0.5 (0.0-0.8) K/uL Eos # (Auto) 0.1 (0.0-0.7) K/uL Baso # (Auto) 0.0 (0.0-0.1) K/uL Nucleated RBC % 0.0 /100WBC Nucleated RBCs # 0 K/uL Sodium (136-145) mmol/L Potassium (3.5-5.1) mmol/L Chloride (98-107) mmol/L Carbon Dioxide (21.0-32.0) mmol/L BUN (7.0-18.0) mg/dL Creatinine (0.6-1.0) mg/dL Est Cr Clr Drug Dosing mL/min Estimated GFR (MDRD) ml/min Glucose (74-106) mg/dL POC Glucose 96 87 (60-110) mg/dL Calcium (8.5-10.1) mg/dL Magnesium (1.8-2.4) mg/dL 04/08/20 04/08/20 04/08/20 Range/Units 13:02 16:45 18:13 WBC (4.0-11.0) K/uL RBC (4.30-5.90) M/uL Hgb (12.0-16.0) g/dL Hct (36.0-46.0) % MCV (80.0-98.0) fL MCH (27.0-32.0) pg MCHC (31.0-37.0) g/dL RDW Std Deviation (28.0-62.0) fl RDW Coeff of Francine (11.0-15.0) % Plt Count (150-400) K/uL MPV (7.40-12.00) fL Neut % (Auto) (48.0-80.0) % Lymph % (Auto) (16.0-40.0) % Travis % (Auto) (0.0-15.0) % Eos % (Auto) (0.0-7.0) % Baso % (Auto) (0.0-1.5) % Neut # (Auto) (1.4-5.7) K/uL Lymph # (Auto) (0.6-2.4) K/uL Travis # (Auto) (0.0-0.8) K/uL Eos # (Auto) (0.0-0.7) K/uL Baso # (Auto) (0.0-0.1) K/uL Nucleated RBC % /100WBC Nucleated RBCs # K/uL Sodium 135 L (136-145) mmol/L Potassium 4.3 (3.5-5.1) mmol/L Chloride 100 (98-107) mmol/L Carbon Dioxide 27.3 (21.0-32.0) mmol/L BUN 11 (7.0-18.0) mg/dL Creatinine 0.7 (0.6-1.0) mg/dL Est Cr Clr Drug Dosing 56.78 mL/min Estimated GFR (MDRD) > 60.0 ml/min Glucose 98 (74-106) mg/dL POC Glucose 81 122 H (60-110) mg/dL Calcium 8.5 (8.5-10.1) mg/dL Magnesium 1.3 L (1.8-2.4) mg/dL 04/09/20 04/09/20 04/09/20 Range/Units 05:28 05:28 06:45 WBC (4.0-11.0) K/uL RBC (4.30-5.90) M/uL Hgb 9.4 L (12.0-16.0) g/dL Hct 27.6 L (36.0-46.0) % MCV (80.0-98.0) fL MCH (27.0-32.0) pg MCHC (31.0-37.0) g/dL RDW Std Deviation (28.0-62.0) fl RDW Coeff of Francine (11.0-15.0) % Plt Count (150-400) K/uL MPV (7.40-12.00) fL Neut % (Auto) (48.0-80.0) % Lymph % (Auto) (16.0-40.0) % Travis % (Auto) (0.0-15.0) % Eos % (Auto) (0.0-7.0) % Baso % (Auto) (0.0-1.5) % Neut # (Auto) (1.4-5.7) K/uL Lymph # (Auto) (0.6-2.4) K/uL Travis # (Auto) (0.0-0.8) K/uL Eos # (Auto) (0.0-0.7) K/uL Baso # (Auto) (0.0-0.1) K/uL Nucleated RBC % /100WBC Nucleated RBCs # K/uL Sodium 132 L (136-145) mmol/L Potassium 4.4 (3.5-5.1) mmol/L Chloride 100 (98-107) mmol/L Carbon Dioxide 25.9 (21.0-32.0) mmol/L BUN 14 (7.0-18.0) mg/dL Creatinine 0.7 (0.6-1.0) mg/dL Est Cr Clr Drug Dosing 56.78 mL/min Estimated GFR (MDRD) > 60.0 ml/min Glucose 114 H (74-106) mg/dL POC Glucose 117 H (60-110) mg/dL Calcium 8.0 L (8.5-10.1) mg/dL Magnesium 1.9 (1.8-2.4) mg/dL Med Orders - Current: Current Medications Acetaminophen (Tylenol) 650 mg PO Q4H PRN PRN Reason: Pain Last Admin: 04/08/20 12:54 Dose: 650 mg Documented by: Al Hydroxide/Mg Hydroxide (Mag-Al Plus) 30 ml PO Q4H PRN PRN Reason: Indigestion Aspirin (Aspirin) 325 mg PO DAILY [facility] Last Admin: 04/09/20 09:04 Dose: 325 mg Documented by: Atorvastatin Calcium (Lipitor) 10 mg PO BEDTIME [facility] Last Admin: 04/08/20 20:19 Dose: 10 mg Documented by: Bisacodyl (Dulcolax) 10 mg RECTAL DAILY PRN PRN Reason: Constipation Calcium Carbonate (Caltrate 600+D 1500 Mg-400 Units) 1 tab PO DAILY [facility] Last Admin: 04/09/20 09:05 Dose: 1 tab Documented by: Diphenhydramine HCl (Benadryl) 25 - 50 mg PO Q6H PRN PRN Reason: Itching Docusate Sodium (Colace) 100 mg PO BID PRN PRN Reason: Constipation Famotidine (Pepcid) 40 mg PO DAILY [facility] Last Admin: 04/09/20 09:05 Dose: 40 mg Documented by: Hydrochlorothiazide (Hydrochlorothiazide) 25 mg PO QAM [facility] Last Admin: 04/09/20 09:06 Dose: 25 mg Documented by: Lactated Ringer's (Ringers, Lactated) 1,000 mls @ 100 mls/hr IV ASDIRECTED [facility] Last Admin: 04/08/20 22:37 Dose: 100 mls/hr Documented by: Insulin Aspart (Novolog) 0 unit SUBCUT TIDAC [facility]; Protocol Last Admin: 04/09/20 07:04 Dose: Not Given Documented by: Losartan Potassium (Cozaar) 100 mg PO [facility] Last Admin: 04/09/20 09:30 Dose: 100 mg Documented by: Metoprolol Succinate ([facility]l) [facility] [place] Admin: 04/09/20 09:04 Dose: 100 mg Documented by: Morphine Sulfate (Morphine) 1 - 2 mg IVPUSH Q3H PRN PRN Reason: Pain Ondansetron HCl (Zofran) 4 mg IVPUSH Q6H PRN PRN Reason: Nausea/Vomiting Last Admin: 04/08/20 17:42 Dose: 4 mg Documented by: Oxycodone HCl (Oxycodone) 5 - 10 mg PO Q4H PRN PRN Reason: Pain Polyethylene Glycol (Miralax) 17 gm PO DAILY [facility] Last Admin: 04/09/20 09:06 Dose: 17 gm Documented by: Scopolamine (Transderm-Scop) 1.5 mg TRDERM ONARRIVE [facility] Last Admin: 04/08/20 08:29 Dose: 1.5 mg Documented by: Sodium Chloride (Saline Flush) 10 ml FLUSH ASDIRECTED PRN PRN Reason: Keep Vein Open Sodium Chloride (Saline Flush) 2.5 ml FLUSH ASDIRECTED PRN PRN Reason: Keep Vein Open Tramadol HCl (Ultram) 50 - 100 mg PO Q6H PRN PRN Reason: Pain Discontinued Medications Bupivacaine HCl (Sensorcaine-Mpf 0.5%) Confirm Administered Dose 10 ml .ROUTE .STK-MED ONE Stop: 04/08/20 07:22 Bupivacaine HCl (Sensorcaine-Mpf 0.25%) Confirm Administered Dose 30 ml .ROUTE .STK-MED ONE Stop: 04/08/20 11:04 Cefazolin Sodium (Ancef) Confirm Administered Dose 2 gm .ROUTE .STK-MED ONE Stop: 04/08/20 07:57 Famotidine (Pepcid) 40 mg IVPUSH ONARRIVE [facility] Last Admin: 04/08/20 08:20 Dose: 40 mg Documented by: Famotidine (Pepcid) Confirm Administered Dose 40 mg .ROUTE .STK-MED ONE Stop: 04/08/20 07:30 Last Admin: 04/08/20 15:57 Dose: Not Given Documented by: Fentanyl (Sublimaze) Confirm Administered Dose 100 mcg .ROUTE .STK-MED ONE Stop: 04/08/20 07:07 Glycopyrrolate (Robinul) Confirm Administered Dose 0.2 mg .ROUTE .STK-MED ONE Stop: 04/08/20 07:10 Tranexamic Acid 1,000 mg/ (Sodium Chloride) 110 mls @ 600 mls/hr IV ASDIRECTED ONE Stop: 04/08/20 08:10 Last Admin: 04/08/20 15:58 Dose: Not Given Documented by: Ropivacaine 49.25 ml/Ketorolac Tromethamine 30 mg/Epinephrine HCl 0.5 mg/Clonidine HCl 80 mcg/ Sodium Chloride 75 mls @ 50 mls/sec INJECT ASDIRECTED [facility] Clindamycin Phosphate 900 mg/ (Premix) 50 mls @ 100 mls/hr IV ONCALL [facility] Last Admin: 04/08/20 08:31 Dose: 100 mls/hr Documented by: Sodium Chloride (Normal Saline) Confirm Administered Dose 20 mls @ as directed .ROUTE .STK-MED ONE Stop: 04/08/20 07:57 Clindamycin Phosphate 900 mg/ (Premix) 50 mls @ 100 mls/hr IV Q8H [facility] Stop: 04/09/20 01:29 Last Admin: 04/09/20 00:27 Dose: 100 mls/hr Documented by: Magnesium Sulfate 4 gm/ Premix 100 mls @ 50 mls/hr IV ONETIME ONE Stop: 04/08/20 17:39 Last Admin: 04/08/20 16:37 Dose: 50 mls/hr Documented by: Sodium Chloride (Normal Saline) 1,000 mls @ 999 mls/hr IV .Bolus ONE Stop: 04/08/20 18:57 Last Admin: 04/08/20 18:53 Dose: 999 mls/hr Documented by: Ketorolac Tromethamine (Toradol) Confirm Administered Dose 30 mg .ROUTE .STK-MED ONE Stop: 04/08/20 07:10 Ketorolac Tromethamine (Toradol) 15 mg IVPUSH Q6H [facility] Stop: 04/09/20 05:00 Last Admin: 04/09/20 06:40 Dose: 15 mg Documented by: Lidocaine (Xylocaine-Mpf 2%) Confirm Administered Dose 5 ml .ROUTE .STK-MED ONE Stop: 04/08/20 07:10 Midazolam HCl (Versed 1 Mg/Ml) Confirm Administered Dose 2 mg .ROUTE .STK-MED ONE Stop: 04/08/20 07:08 Ondansetron HCl (Zofran) Confirm Administered Dose 4 mg .ROUTE .STK-MED ONE Stop: 04/08/20 07:10 Propofol (Diprivan 20 Ml) Confirm Administered Dose 200 mg .ROUTE .STK-MED ONE Stop: 04/08/20 07:07 Scopolamine (Transderm-Scop) Confirm Administered Dose 1.5 mg .ROUTE .STK-MED ONE Stop: 04/08/20 07:27 Last Admin: 04/08/20 15:57 Dose: Not Given Documented by: - Exam General: Alert, Oriented, Cooperative, No Acute Distress Lungs: Clear to Auscultation, Normal Respiratory Effort Cardiovascular: Regular Rate, Regular Rhythm GI/Abdominal Exam: Normal Bowel Sounds, Soft, Non-Tender Extremities: Normal Inspection, Normal Range of Motion, Non-Tender, No Pedal Edema Neurological: No New Focal Deficit Psy/Mental Status: Alert, Normal Affect, Normal Mood Sepsis Event Note - Evaluation Sepsis Screening Result: No Definite Risk - Focused Exam Vital Signs: Vital Signs Temp Pulse Pulse Resp BP BP Pulse Ox 04/09/20 09:30 144/66 H 04/09/20 09:04 74 144/66 H 04/09/20 07:28 98.6 F 74 16 144/66 H 97 04/09/20 05:05 97.4 F 70 14 118/56 L 92 L 04/09/20 00:35 97.7 F 57 L 14 112/53 L 92 L Consult PN Assessment/Plan Procedures: Procedures ALANINE AMINO (ALT) (SGPT) (05/10/19) ASSAY OF SERUM POTASSIUM (05/10/15) BLOOD TYPING SEROLOGIC ABO (09/30/15) BLOOD TYPING SEROLOGIC RH(D) (09/30/15) BREAST TOMOSYNTHESIS BI (09/07/19) C-REACTIVE PROTEIN (05/18/17) CARPAL TUNNEL SURGERY (10/19/18) COMP SCREEN MAMMOGRAM ADD-ON (05/19/16) COMPLETE CBC AUTOMATED (03/19/20) COMPLETE CBC W/AUTO DIFF WBC (05/18/17) COMPREHEN METABOLIC PANEL (04/19/17) CULTURE OTHR SPECIMN AEROBIC (03/19/20) CYTOPATH FL NONGYN SMEARS (09/30/15) DXA BONE DENSITY AXIAL (05/19/16) ELECTROCARDIOGRAM TRACING (09/30/15) EXTREMITY STUDY (11/09/19) GLUCOSE BLOOD TEST (10/19/18) GLYCOSYLATED HEMOGLOBIN TEST (03/19/20) HPV HIGH-RISK TYPES (04/19/15) HYDRATE IV INFUSION ADD-ON (09/30/15) LAPARO-VAG HYST INCL T/O (09/30/15) LIPID PANEL (05/10/19) METABOLIC PANEL TOTAL CA (03/19/20) MRI LOWER EXTREMITY W/O DYE (08/10/17) PROTHROMBIN TIME (03/19/20) RBC ANTIBODY SCREEN (09/30/15) RBC SED RATE AUTOMATED (05/18/17) ROUTINE VENIPUNCTURE (03/19/20) SARS-COV2 COVID-19 AMP PRB (04/05/20) SCR MAMMO BI INCL CAD (09/07/19) THER/PROPH/DIAG INJ IV PUSH (09/30/15) TISSUE EXAM BY PATHOLOGIST (09/30/15) TISSUE EXAM BY PATHOLOGIST (09/30/15) TISSUE EXAM BY PATHOLOGIST (06/10/15) TX/PRO/DX INJ SAME DRUG FOREST PATROLMAN (09/30/15) URINALYSIS AUTO W/O SCOPE (03/19/20) URINALYSIS AUTO W/SCOPE (05/04/18) VIT D 1 25-DIHYDROXY (05/18/14) VITAMIN B-12 (05/18/14) X-RAY EXAM CHEST 2 VIEWS (03/19/20) X-RAY EXAM KNEE 4 OR MORE (11/09/19) X-RAY EXAM OF ANKLE (11/09/19) X-RAY EXAM OF KNEE 1 OR 2 (11/14/19) X-RAY EXAM OF WRIST (10/06/18) (1) S/P total knee arthroplasty SNOMED Code(s): 6326183815354, 532085384, 2498920593594 Code(s): Z96.659 - PRESENCE OF UNSPECIFIED ARTIFICIAL KNEE JOINT Current Visit: Yes Qualifiers: Laterality: right Qualified Code(s): Z96.651 - Presence of right artificial knee joint (2) HTN (hypertension) SNOMED Code(s): 18211241 Code(s): I10 - ESSENTIAL (PRIMARY) HYPERTENSION Current Visit: Yes Qualifiers: Hypertension type: essential hypertension Qualified Code(s): I10 - Essential (primary) hypertension (3) HLD (hyperlipidemia) SNOMED Code(s): 04557024 Code(s): E78.5 - HYPERLIPIDEMIA, UNSPECIFIED Current Visit: Yes Qualifiers: Hyperlipidemia type: mixed hyperlipidemia Qualified Code(s): E78.2 - Mixed hyperlipidemia (4) DM type 2 (diabetes mellitus, type 2) SNOMED Code(s): 37184267 Code(s): E11.9 - TYPE 2 DIABETES MELLITUS WITHOUT COMPLICATIONS Current Visit: Yes Qualifiers: Diabetes mellitus termination clerk insulin use: without termination clerk use Diabetes mellitus complication status: without complication Qualified Code(s): E11.9 - Type 2 diabetes mellitus without complications Problem List Initiated/Reviewed/Updated: Yes My Orders Last 24 Hours: My Active Orders 04/08/20 12:35 Blood Glucose Check, Bedside [RC] TIDAC 04/08/20 12:46 Acetaminophen [TylenoL] 650 mg PO Q4H PRN 04/08/20 17:00 Insulin Aspart [NovoLOG] See Protocol SUBCUT TIDAC 04/08/20 21:00 atorvaSTATin [Lipitor] 10 mg PO BEDTIME 04/09/20 09:00 Calcium Carbonate/Vitamin D3 [Caltrate 600+D 1500 MG-400 Units] 1 tab PO DAILY Losartan [Cozaar] 100 mg PO QAM Metoprolol Succinate [Toprol XL] 100 mg PO QAM hydroCHLOROthiazide 25 mg PO QAM Plan: This 64-year-old admitted with right TKA. Hospitalist service consulted for medical management of comorbidities. 1. S/p right TKA -Orders per orthopedics - ASA ordered 2. Hypertension/HLD -Continue losartan, metoprolol, HCTZ -Monitor BMPs and mg daily -Continue statin 3. DM type II -Hold metformin, may restart upon discharge home. -NovoLog sliding scale with blood sugar checks before meals VTE prophylaxis: Would recommend when deemed appropriate by Orthopedics
--- NOTE | 2020-04-09 11:08 | PCM.DCSUM1 ---
Discharge Summary - Hospital Course Free Text/Narrative:: Riri underwent RIGHT TOTAL KNEE ARTHROPLASTY 04/08/[address] Favian Centeno. No known surgical complications. Overnight stay in hospital for post-op care, pain management and PT. Hospitalist services were consulted for management of HTN and DM. States she got light headed yesterday when walking with PT. No recurrent events. Afebrile overnight. Sitting in chair this morning. Ate breakfast and has no c/o N/V. Persistent use of Polar Ice therapy. Prophylactic antibiotic : clindamycin prior to surgical incision and 2 additional doses completed. Hg POD#1 9.4 Has only utilized Tylenol for pain management. Dressing on surgical knee was monitored overnight as she had some saturation yesterday, but dressing was not reinforced. - Discharge Data Discharge Date: 04/09/20 Discharge Disposition: Home, Self-Care 01 Condition: Good - Referral to Home Health Primary Care Physician: Lai Walker MD - Patient Summary/Data Operative Procedure(s) Performed: Right total knee replacement using Leblanc and NephHomeZada knee system Consults: Consultations 04/08/20 11:06 Consult to Physician [CONS] Routine PT Evaluation and Treatment [CONS] Routine 04/08/20 18:01 Consult to Physician [CONS] Routine Hospital Course: see narrative above - Patient Instructions Diet: Usual Diet as Tolerated Activity: Apply Ice (Use Polar Care often to right knee to minimize swelling and decrease pain.), Elevate Extremity (No NOT place pillow under your knee when elevating your leg. Place pillow under your heel/foot), Full Weight Bearing (Use walker when walking), No Strenuous Activities Driving: Do Not Drive (no driving until cleared by surgeon at 6 week follow up appointment. ) Driving, Other: no driving when taking narcotic medication. Showering/Bathing: May Shower (When bathing, showers allowed. NO tub baths. You do not need to cover the AquaCell bandage when bathing. ), No Tub Bathing/ Swimming (No hot tubs) Other/Special Instructions: Physical Therapy as scheduled. You may experience constipation related to narcotic pain medications and decreased activity. Be sure to drink plenty of fluids. May take Colace 100mg twice daily (stool softener) and MiraLax daily as directed to prevent/alleviate constipation. Wear compression sock on right leg - on in the morning, take off before bedtime. Take ASPIRIN DAILY to prevent blood clots. For pain management...Ibuprofen 600mg routinely three times daily, then Tylenol 650 in addition to this if needed. - Discharge Plan Prescriptions/Med Rec: Aspirin 325 mg PO DAILY #90 tablet Clindamycin HCl 300 mg PO TID 7 Days #21 capsule Ibuprofen 600 mg PO TID #60 tablet Home Medications: Home Meds Calcium Carbonate/Vitamin D3 [Caltrate 600 Plus D3 Tablet] 1 tab PO DAILY 09/26/15 [History] Metoprolol Succinate [Toprol XL] 100 mg PO QAM 09/26/15 [History] Omeprazole Magnesium [Prilosec Otc] 20 mg PO QAM 09/26/15 [History] atorvaSTATin [Lipitor] 10 mg PO BEDTIME 09/26/15 [History] Ascorbic Acid [Vitamin C] 500 mg PO DAILY 10/14/18 [History] Gabapentin [Neurontin] 600 mg PO TID PRN 10/14/18 [History] metFORMIN HCl [Metformin HCl ER] 500 mg PO BID 10/14/18 [History] Losartan Potassium 100 mg PO QAM 04/02/20 [History] hydroCHLOROthiazide [Hydrochlorothiazide] 25 mg PO QAM 04/02/20 [History] Aspirin 325 mg PO DAILY #90 tablet 04/08/20 [Rx] Clindamycin HCl 300 mg PO TID 7 Days #21 capsule 04/08/20 [Rx] Docusate Sodium [Colace] 100 mg PO BID PRN cap 04/08/20 [Rx] polyethylene glycoL 3350 [MiraLAX] 17 gm PO DAILY packet 04/08/20 [Rx] Acetaminophen [Tylenol] 650 mg PO Q4H PRN tablet 04/09/20 [Rx] Ibuprofen 600 mg PO TID #60 tablet 04/09/20 [Rx] Patient Handouts: Ibuprofen tablets and capsules, Clindamycin capsules, Total Knee Replacement, Care After, [id number], Aspirin, ASA oral tablets Referrals: Bria Mcdonald NP [Nurse Practitioner] - 04/23/20 9:40 am - Discharge Summary/Plan Comment DC Time >30 min.: No Discharge Summary/Plan Comment: Follow up appt scheduled with myself in 2 weeks. Informed to call orthopedic clinic with acute concerns or questions. Outpatient PT set up at [facility] at the building. Riri voiced readiness to go home today. She will be discharged home with her . She has a walker at home. A second AquaCell bandage to be sent home with her to change in 5-7 days. VTE prophylaxis : ASA 325mg daily x3 months. (No h/o DVT/PE and no contraindications to use). Prophylactic antibiotic : clindamycin 300mg TID x7 days ([facility]). Pain Management : elevate RLE, ice to knee, Ibuprofen 600mg TID with Tylenol in addition to if needed. - General Info Date of Service: 04/09/20 (8199) Admission Dx/Problem (Free Text: Right knee osteoarthritis s/p RIGHT TOTAL KNEE ARTHROPLASTY Functional Status: Reports: Pain Controlled (pain minimal. ), Tolerating Diet (just finished eating breakfast.), Ambulating (sitting up in chair for breakfast. Did ambulate with PT yesterday afternoon), Urinating - Review of Systems General: Denies: Fever, Chills Pulmonary: Denies: No Symptoms, Shortness of Breath Cardiovascular: Denies: No Symptoms Gastrointestinal: Denies: Abdominal Pain, Nausea, Vomiting Musculoskeletal: Reports: Joint Pain (mild knee pain), Joint Swelling (post- surgical soft tissue swelling) Neurological: Denies: Confusion, Trouble Speaking Psychiatric: Denies: No Symptoms - Patient Data Vitals - Most Recent: Last Vital Signs Temp 37.0 C 04/09/20 07:28 Pulse 74 04/09/20 09:04 Resp 16 04/09/20 07:28 BP 144/66 H 04/09/20 09:30 Pulse Ox 97 04/09/20 07:28 Weight - Most Recent: 86.636 kg I&O - Last 24 hours: Intake & Output 04/08/20 04/09/20 04/09/20 22:59 06:59 14:59 Intake Total 500 350 Output Total 0 Balance 500 350 Lab Results - Last 24 hrs: Laboratory Results - last 24 hr 04/08/20 04/08/20 04/08/20 Range/Units 08:05 11:42 13:02 WBC 6.14 (4.0-11.0) K/uL RBC 3.74 L (4.30-5.90) M/uL Hgb 11.9 L (12.0-16.0) g/dL Hct 35.6 L (36.0-46.0) % MCV 95.2 (80.0-98.0) fL MCH 31.8 (27.0-32.0) pg MCHC 33.4 (31.0-37.0) g/dL RDW Std Deviation 41.6 (28.0-62.0) fl RDW Coeff of Francine 12 (11.0-15.0) % Plt Count 211 (150-400) K/uL MPV 11.40 (7.40-12.00) fL Neut % (Auto) 58.8 (48.0-80.0) % Lymph % (Auto) 30.6 (16.0-40.0) % [place] % (Auto) 8.5 (0.0-15.0) % Eos % (Auto) 1.6 (0.0-7.0) % Baso % (Auto) 0.5 (0.0-1.5) % Neut # (Auto) 3.6 (1.4-5.7) K/uL Lymph # (Auto) 1.9 (0.6-2.4) K/uL [place] # (Auto) 0.5 (0.0-0.8) K/uL Eos # (Auto) 0.1 (0.0-0.7) K/uL Baso # (Auto) 0.0 (0.0-0.1) K/uL Nucleated RBC % 0.0 /100WBC Nucleated RBCs # 0 K/uL Sodium (136-145) mmol/L Potassium (3.5-5.1) mmol/L Chloride (98-107) mmol/L Carbon Dioxide (21.0-32.0) mmol/L BUN (7.0-18.0) mg/dL Creatinine (0.6-1.0) mg/dL Est Cr Clr Drug Dosing mL/min Estimated GFR (MDRD) ml/min Glucose (74-106) mg/dL POC Glucose 96 87 (60-110) mg/dL Calcium (8.5-10.1) mg/dL Magnesium (1.8-2.4) mg/dL 04/08/20 04/08/20 04/08/20 Range/Units 13:02 16:45 18:13 WBC (4.0-11.0) K/uL RBC (4.30-5.90) M/uL Hgb (12.0-16.0) g/dL Hct (36.0-46.0) % MCV (80.0-98.0) fL MCH (27.0-32.0) pg MCHC (31.0-37.0) g/dL RDW Std Deviation (28.0-62.0) fl RDW Coeff of Francine (11.0-15.0) % Plt Count (150-400) K/uL MPV (7.40-12.00) fL Neut % (Auto) (48.0-80.0) % Lymph % (Auto) (16.0-40.0) % [place] % (Auto) (0.0-15.0) % Eos % (Auto) (0.0-7.0) % Baso % (Auto) (0.0-1.5) % Neut # (Auto) (1.4-5.7) K/uL Lymph # (Auto) (0.6-2.4) K/uL [place] # (Auto) (0.0-0.8) K/uL Eos # (Auto) (0.0-0.7) K/uL Baso # (Auto) (0.0-0.1) K/uL Nucleated RBC % /100WBC Nucleated RBCs # K/uL Sodium 135 L (136-145) mmol/L Potassium 4.3 (3.5-5.1) mmol/L Chloride 100 (98-107) mmol/L Carbon Dioxide 27.3 (21.0-32.0) mmol/L BUN 11 (7.0-18.0) mg/dL Creatinine 0.7 (0.6-1.0) mg/dL Est Cr Clr Drug Dosing 56.78 mL/min Estimated GFR (MDRD) > 60.0 ml/min Glucose 98 (74-106) mg/dL POC Glucose 81 122 H (60-110) mg/dL Calcium 8.5 (8.5-10.1) mg/dL Magnesium 1.3 L (1.8-2.4) mg/dL 04/09/20 04/09/20 04/09/20 Range/Units 05:28 05:28 06:45 WBC (4.0-11.0) K/uL RBC (4.30-5.90) M/uL Hgb 9.4 L (12.0-16.0) g/dL Hct 27.6 L (36.0-46.0) % MCV (80.0-98.0) fL MCH (27.0-32.0) pg MCHC (31.0-37.0) g/dL RDW Std Deviation (28.0-62.0) fl RDW Coeff of Francine (11.0-15.0) % Plt Count (150-400) K/uL MPV (7.40-12.00) fL Neut % (Auto) (48.0-80.0) % Lymph % (Auto) (16.0-40.0) % [place] % (Auto) (0.0-15.0) % Eos % (Auto) (0.0-7.0) % Baso % (Auto) (0.0-1.5) % Neut # (Auto) (1.4-5.7) K/uL Lymph # (Auto) (0.6-2.4) K/uL [place] # (Auto) (0.0-0.8) K/uL Eos # (Auto) (0.0-0.7) K/uL Baso # (Auto) (0.0-0.1) K/uL Nucleated RBC % /100WBC Nucleated RBCs # K/uL Sodium 132 L (136-145) mmol/L Potassium 4.4 (3.5-5.1) mmol/L Chloride 100 (98-107) mmol/L Carbon Dioxide 25.9 (21.0-32.0) mmol/L BUN 14 (7.0-18.0) mg/dL Creatinine 0.7 (0.6-1.0) mg/dL Est Cr Clr Drug Dosing 56.78 mL/min Estimated GFR (MDRD) > 60.0 ml/min Glucose 114 H (74-106) mg/dL POC Glucose 117 H (60-110) mg/dL Calcium 8.0 L (8.5-10.1) mg/dL Magnesium 1.9 (1.8-2.4) mg/dL Med Orders - Current: Current Medications Acetaminophen (Tylenol) 650 mg PO Q4H PRN PRN Reason: Pain Last Admin: 04/08/20 12:54 Dose: 650 mg Documented by: Al Hydroxide/Mg Hydroxide (Mag-Al Plus) 30 ml PO Q4H PRN PRN Reason: Indigestion Aspirin (Aspirin) 325 mg PO DAILY [facility] Last Admin: 04/09/20 09:04 Dose: 325 mg Documented by: Atorvastatin Calcium (Lipitor) 10 mg PO BEDTIME [facility] Last Admin: 04/08/20 20:19 Dose: 10 mg Documented by: Bisacodyl (Dulcolax) 10 mg RECTAL DAILY PRN PRN Reason: Constipation Calcium Carbonate (Caltrate 600+D 1500 Mg-400 Units) 1 tab PO DAILY [facility] Last Admin: 04/09/20 09:05 Dose: 1 tab Documented by: Diphenhydramine HCl (Benadryl) 25 - 50 mg PO Q6H PRN PRN Reason: Itching Docusate Sodium (Colace) 100 mg PO BID PRN PRN Reason: Constipation Famotidine (Pepcid) 40 mg PO DAILY [facility] Last Admin: 04/09/20 09:05 Dose: 40 mg Documented by: Hydrochlorothiazide (Hydrochlorothiazide) 25 mg PO [facility] Last Admin: 04/09/20 09:06 Dose: 25 mg Documented by: Lactated Ringer's (Ringers, Lactated) 1,000 mls @ 100 mls/hr IV ASDIRECTED [facility] Last Admin: 04/08/20 22:37 Dose: 100 mls/hr Documented by: Insulin Aspart (Novolog) 0 unit SUBCUT TIDAC [facility]; Protocol Last Admin: 04/09/20 07:04 Dose: Not Given Documented by: Losartan Potassium (Cozaar) 100 mg PO [facility] Last Admin: 04/09/20 09:30 Dose: 100 mg Documented by: Metoprolol Succinate (Toprol Xl) 100 mg PO [facility] Last Admin: 04/09/20 09:04 Dose: 100 mg Documented by: Morphine Sulfate (Morphine) 1 - 2 mg IVPUSH Q3H PRN PRN Reason: Pain Ondansetron HCl (Zofran) 4 mg IVPUSH Q6H PRN PRN Reason: Nausea/Vomiting Last Admin: 04/08/20 17:42 Dose: 4 mg Documented by: Oxycodone HCl (Oxycodone) 5 - 10 mg PO Q4H PRN PRN Reason: Pain Polyethylene Glycol (Miralax) 17 gm PO DAILY [facility] Last Admin: 04/09/20 09:06 Dose: 17 gm Documented by: Scopolamine (Transderm-Scop) 1.5 mg TRDERM ONARRIVE [facility] Last Admin: 04/08/20 08:29 Dose: 1.5 mg Documented by: Sodium Chloride (Saline Flush) 10 ml FLUSH ASDIRECTED PRN PRN Reason: Keep Vein Open Sodium Chloride (Saline Flush) 2.5 ml FLUSH ASDIRECTED PRN PRN Reason: Keep Vein Open Tramadol HCl (Ultram) 50 - 100 mg PO Q6H PRN PRN Reason: Pain Discontinued Medications Bupivacaine HCl (Sensorcaine-Mpf 0.5%) Confirm Administered Dose 10 ml .ROUTE .STK-MED ONE Stop: 04/08/20 07:22 Bupivacaine HCl (Sensorcaine-Mpf 0.25%) Confirm Administered Dose 30 ml .ROUTE .STK-MED ONE Stop: 04/08/20 11:04 Cefazolin Sodium (Ancef) Confirm Administered Dose 2 gm .ROUTE .STK-MED ONE Stop: 04/08/20 07:57 Famotidine (Pepcid) 40 mg IVPUSH ONARRIVE [facility] Last Admin: 04/08/20 08:20 Dose: 40 mg Documented by: Famotidine (Pepcid) Confirm Administered Dose 40 mg .ROUTE .STK-MED ONE Stop: 04/08/20 07:30 Last Admin: 04/08/20 15:57 Dose: Not Given Documented by: Fentanyl (Sublimaze) Confirm Administered Dose 100 mcg .ROUTE .STK-MED ONE Stop: 04/08/20 07:07 Glycopyrrolate (Robinul) Confirm Administered Dose 0.2 mg .ROUTE .STK-MED ONE Stop: 04/08/20 07:10 Tranexamic Acid 1,000 mg/ (Sodium Chloride) 110 mls @ 600 mls/hr IV ASDIRECTED ONE Stop: 04/08/20 08:10 Last Admin: 04/08/20 15:58 Dose: Not Given Documented by: Ropivacaine 49.25 ml/Ketorolac Tromethamine 30 mg/Epinephrine HCl 0.5 mg/Clonidine HCl 80 mcg/ Sodium Chloride 75 mls @ 50 mls/sec INJECT ASDIRECTED [facility] Clindamycin Phosphate 900 mg/ (Premix) 50 mls @ 100 mls/hr IV ONCALL [facility] Last Admin: 04/08/20 08:31 Dose: 100 mls/hr Documented by: Sodium Chloride (Normal Saline) Confirm Administered Dose 20 mls @ as directed .ROUTE .STK-MED ONE Stop: 04/08/20 07:57 Clindamycin Phosphate 900 mg/ (Premix) 50 mls @ 100 mls/hr IV Q8H [facility] Stop: 04/09/20 01:29 Last Admin: 04/09/20 00:27 Dose: 100 mls/hr Documented by: Magnesium Sulfate 4 gm/ Premix 100 mls @ 50 mls/hr IV ONETIME ONE Stop: 04/08/20 17:39 Last Admin: 04/08/20 16:37 Dose: 50 mls/hr Documented by: Sodium Chloride (Normal Saline) 1,000 mls @ 999 mls/hr IV .Bolus ONE Stop: 04/08/20 18:57 Last Admin: 04/08/20 18:53 Dose: 999 mls/hr Documented by: Ketorolac Tromethamine (Toradol) Confirm Administered Dose 30 mg .ROUTE .STK-MED ONE Stop: 04/08/20 07:10 Ketorolac Tromethamine (Toradol) 15 mg IVPUSH Q6H [facility] Stop: 04/09/20 05:00 Last Admin: 04/09/20 06:40 Dose: 15 mg Documented by: Lidocaine (Xylocaine-Mpf 2%) Confirm Administered Dose 5 ml .ROUTE .STK-MED ONE Stop: 04/08/20 07:10 Midazolam HCl (Versed 1 Mg/Ml) Confirm Administered Dose 2 mg .ROUTE .STK-MED ONE Stop: 04/08/20 07:08 Ondansetron HCl (Zofran) Confirm Administered Dose 4 mg .ROUTE .STK-MED ONE Stop: 04/08/20 07:10 Propofol (Diprivan 20 Ml) Confirm Administered Dose 200 mg .ROUTE .STK-MED ONE Stop: 04/08/20 07:07 Scopolamine (Transderm-Scop) Confirm Administered Dose 1.5 mg .ROUTE .STK-MED ONE Stop: 04/08/20 07:27 Last Admin: 04/08/20 15:57 Dose: Not Given Documented by: - Exam Quality Assessment: Reports: DVT Prophylaxis (ASA 325mg, SCDs ) General: Reports: Alert, Oriented, Cooperative, No Acute Distress HEENT: Reports: Pupils Equal Lungs: Reports: Normal Respiratory Effort Cardiovascular: Reports: Regular Rate (PP2+) Extremities: Normal Capillary Refill. No: Pedal Edema Skin: Reports: Warm, Dry Wound/Incisions: Reports: Dressing Dry and Intact. Denies: Erythema Neurological: Reports: Normal Speech Psy/Mental Status: Reports: Alert, Normal Affect, Normal Mood Physical Findings Comments:: Surgical dressings to right knee removed. Moderate amount of dried blood present on dressings. Surgical incision well approximated. No surrounding erythema. No active drainage. Large AquaCell dressing applied. Sensation intact to RLE. Actively wiggles ankle and toes.
== END 2020-04-09 11:45 | disposition home or self-care (01) | DRG 302 ==
LOC: MW.SDS 06:56 → EDSTATUS 08:00 → MW.MS 12:18
PROVIDERS: ADMIT Orthopaedic Surgery; ATTEND Orthopaedic Surgery
PROC: 0SRC0J9 Replacement of Right Knee Joint with Synthetic Substitute, Cemented, Open Approach (ICD-10-PCS; principal; 2020-04-08)
DX: M17.11 Unilateral primary osteoarthritis, right knee (principal); R42 Dizziness and giddiness; I10 Essential (primary) hypertension; E11.9 Type 2 diabetes mellitus without complications; K21.9 Gastro-esophageal reflux disease without esophagitis; G89.29 Other chronic pain; E78.00 Pure hypercholesterolemia, unspecified; M21.372 Foot drop, left foot; M54.16 Radiculopathy, lumbar region; M54.32 Sciatica, left side; M71.22 Synovial cyst of popliteal space [Baker], left knee; M86.9 Osteomyelitis, unspecified; Z79.82 Long term (current) use of aspirin; Z98.890 Other specified postprocedural states; Z79.899 Other long term (current) drug therapy; Z88.1 Allergy status to other antibiotic agents; Z88.0 Allergy status to penicillin; Z91.013 Allergy to seafood; Z90.710 Acquired absence of both cervix and uterus
CPT/HCPCS: 36415; 73560-26-RT; 73560-RT; 80048; 82962; 83735; 85014; 85018; 85025; 86850; 86900; 86901; 97161-GP; 97530-GP; A9270-GY; J0171; J0690; J0735; J1885; J2001; J2250; J2405; J2704; J2795; J3010; J3475; J3490; J7030; J7120; U0002

== ENCOUNTER 2020-08-21 08:33 | Observation (INO) | payer BC ==
[~2020-08-21 08:33] MED LIST changes: +Bupivacaine 0.5% 30 ML SDV ONE; +Clindamycin Phosphate 900 MG/6 ML SDV IV SCH; +Dexamethasone 4 MG/ML 5 ML MDV ONE; +Glycopyrrolate 0.2 MG/ML SDV ONE; +Ketorolac 30 MG/ML SDV ONE; +Lidocaine 2% 5 ML SDV ONE; +Midazolam 1 MG/ML 2 ML SDV ONE; +Ondansetron 4 MG/2 ML SDV ONE; +Propofol 200 MG/20 ML SDV ONE; +Tranexamic Acid 1,000 MG in Sodium Chloride 0.9% 100 ML IV ONE; +fentaNYL 100 MCG/2 ML SDV ONE
[2020-08-21] MEDS ORDERED: Famotidine 40 MG in Sodium Chloride 0.9% 6 ML IV ONE (09:00)
[2020-08-21] MEDS ORDERED: Clindamycin Phosphate in D5W 600 MG in Premix Bag 1 BAG IV ONE ×2 (09:00)
[2020-08-21] MEDS: Lactated Ringers 1,000 ML IV SCH ×2 (09:05→14:49)
--- NOTE | 2020-08-21 09:49 | PCM.PREANE ---
Preanesthetic Assessment - Anesthesia/Transfusion/Family Hx Anesthesia History: Prior Anesthesia Without Reaction Family History of Anesthesia Reaction: No Transfusion History: No Prior Transfusion(s) Intubation History: Unknown - Review of Systems General: No Symptoms Pulmonary: No Symptoms Cardiovascular: No Symptoms Gastrointestinal: No Symptoms Neurological: No Symptoms Other: Reports: None - Physical Assessment NPO Status Date: 08/20/20 Vital Signs: Last Vital Signs Temp 97.2 F 08/21/20 08:50 Pulse 75 08/21/20 08:50 Resp 15 08/21/20 08:50 BP 138/81 08/21/20 08:50 Pulse Ox 95 08/21/20 08:50 Height: 5 ft Weight: 83.461 kg ASA Class: 2 Mental Status: Alert & Oriented x3 Airway Class: Mallampati = 2 Dentition: Reports: Normal Dentition ROM/Head Extension: Full Lungs: Clear to Auscultation, Normal Respiratory Effort Cardiovascular: Regular Rate, Regular Rhythm - Lab Values: Laboratory Last Values SARS-CoV-2 RNA (COCO) NEGATIVE (NEGATIVE) 08/21/20 08:01 - Allergies Allergies/Adverse Reactions: Allergies Allergy/AdvReac Type Severity Reaction Status Date / Time erythromycin base Allergy Hives Verified 08/13/20 10:38 [Erythromycin Base] Fish Containing Products Allergy Difficulty Verified 08/13/20 10:38 Breathing levofloxacin Allergy Difficulty Verified 08/13/20 10:38 Breathing maltose Allergy Hives Verified 08/13/20 10:38 [From Bexxar 131 Iodine] Penicillins Allergy Rash Verified 08/13/20 10:38 shellfish derived Allergy Difficulty Verified 08/13/20 10:38 Breathing tositumomab iodine-131 Allergy Hives Verified 08/13/20 10:38 [From Bexxar 131 Iodine] - Anesthesia Plan Pre-Op Medication Ordered: Anxiolytic - Acknowledgements Anesthesia Type Planned: Spinal Pt an Appropriate Candidate for the Planned Anesthesia: Yes Alternatives and Risks of Anesthesia Discussed w Pt/Guardian: Yes Pt/Guardian Understands and Agrees with Anesthesia Plan: Yes Additional Comments: pmh: gerd, htn, tremor, radiculopathy, pre DM PLAN: spinal with iv sedation, pre op fem nerve block for post op pain mgmt. PreAnesthesia Questionnaire HEENT History: Reports: Allergic Rhinitis, Other (See Below) Other HEENT History: wears glasses Cardiovascular History: Reports: High Cholesterol, Hypertension Respiratory History: Reports: None Gastrointestinal History: Reports: Diverticulosis, GERD Genitourinary History: Reports: None [employer] History: Reports: Musculoskeletal History: Reports: Osteoarthritis Other Musculoskeletal History: left leg pain Neurological History: Reports: Vertigo, Other (See Below) Other Neuro History: essential tremors, has motion sickness Psychiatric History: Reports: None Endocrine/Metabolic History: Reports: Diabetes, Type II, Obesity/BMI 30+ Other Endocrine/Metabolic History: states is not diabetic but takes metformin to "keep the levels good" Hematologic History: Reports: None Immunologic History: Reports: None Oncologic (Cancer) History: Reports: None Dermatologic History: Reports: None, Other (See Below) - Past Surgical History Head Surgeries/Procedures: Reports: None HEENT Surgical History: Reports: None Cardiovascular Surgical History: Reports: None Respiratory Surgical History: Reports: None GI Surgical History: Reports: Colonoscopy Female Surgical History: Reports: Hysterectomy, Salpingo-Oophorectomy, Tubal Ligation Other Female Surgeries/Procedures: hx hysteroscopy Neurological Surgical History: Reports: None Musculoskeletal Surgical History: Reports: Arthroscopic Knee, Carpal Tunnel, Knee Replacement Other Musculoskeletal Surgeries/Procedures:: left foot bunionectomy Oncologic Surgical History: Reports: None Dermatological Surgical History: Reports: None - SUBSTANCE USE Tobacco Use Status *Q: Former Tobacco User Tobacco Use Within Last Twelve Months: No Recreational Drug Use History: No - HOME MEDS Home Medications: Home Meds Metoprolol Succinate [Toprol XL] 100 mg PO QAM 09/26/15 [History] Omeprazole Magnesium [Prilosec Otc] 20 mg PO QAM 09/26/15 [History] atorvaSTATin [Lipitor] 10 mg PO BEDTIME 09/26/15 [History] Ascorbic Acid [Vitamin C] 500 mg PO BID 10/14/18 [History] Gabapentin [Neurontin] 600 mg PO TID PRN 10/14/18 [History] metFORMIN HCl [Metformin HCl ER] 500 mg PO BID 10/14/18 [History] Losartan Potassium 100 mg PO QAM 04/02/20 [History] hydroCHLOROthiazide [Hydrochlorothiazide] 25 mg PO QAM 04/02/20 [History] Acetaminophen [Tylenol 8 Hour] 2 tab PO TID PRN 08/13/20 [History] - CURRENT (IN HOUSE) MEDS Current Meds: Current Medications Ropivacaine 49.25 ml/Ketorolac Tromethamine 30 mg/Epinephrine HCl 0.5 mg/Clonidine HCl 80 mcg/ Sodium Chloride 75 mls @ 50 mls/sec INJECT ASDIRECTED [facility] Lactated Ringer's (Ringers, Lactated) 1,000 mls @ 100 mls/hr IV ASDIRECTED [facility] Last Admin: 08/21/20 09:05 Dose: 100 mls/hr Documented by: Scopolamine (Transderm-Scop) 1.5 mg TRDERM ONARRIVE [facility] Last Admin: 08/21/20 09:17 Dose: 1.5 mg Documented by: Discontinued Medications Bupivacaine HCl (Marcaine 0.5%) Confirm Administered Dose 30 ml .ROUTE .STK-MED ONE Stop: 08/21/20 07:37 Dexamethasone (Dexamethasone) Confirm Administered Dose 20 mg .ROUTE .STK-MED ONE Stop: 08/21/20 08:20 Fentanyl (Sublimaze) Confirm Administered Dose 100 mcg .ROUTE .STK-MED ONE Stop: 08/21/20 07:08 Glycopyrrolate (Robinul) Confirm Administered Dose 0.2 mg .ROUTE .STK-MED ONE Stop: 08/21/20 07:10 Tranexamic Acid 1,000 mg/ (Sodium Chloride) 110 mls @ 600 mls/hr IV ASDIRECTED ONE Stop: 08/21/20 08:10 Famotidine 40 mg/ Sodium (Chloride) 10 mls @ 300 mls/hr IV ONARRIVE ONE Stop: 08/21/20 09:01 Clindamycin Phosphate 600 mg/ (Premix) 50 mls @ 100 mls/hr IV ONARRIVE ONE Stop: 08/21/20 09:29 Last Admin: 08/21/20 09:28 Dose: 100 mls/hr Documented by: Ketorolac Tromethamine (Toradol) Confirm Administered Dose 30 mg .ROUTE .STK-MED ONE Stop: 08/21/20 07:10 Lidocaine (Xylocaine-Mpf 2%) Confirm Administered Dose 5 ml .ROUTE .STK-MED ONE Stop: 08/21/20 07:10 Midazolam HCl (Versed 1 Mg/Ml) Confirm Administered Dose 2 mg .ROUTE .STK-MED ONE Stop: 08/21/20 07:08 Ondansetron HCl (Zofran) Confirm Administered Dose 4 mg .ROUTE .STK-MED ONE Stop: 08/21/20 07:10 Propofol (Diprivan 20 Ml) Confirm Administered Dose 200 mg .ROUTE .STK-MED ONE Stop: 08/21/20 07:08
[2020-08-21] MEDS ORDERED: Midazolam 1 MG/ML 2 ML SDV ONE ×2 (09:53→10:38)
--- NOTE | 2020-08-21 10:31 | PCM.SN.2 ---
- Free Text/Narrative Note: procedure note- femoral nerve block. pt identified, sitr/side reconfirmed. fem art not palpable. ultrasound used to identify site of fem a. needel entered 1 cm lat to marked fem art. good twitch at 2-3 cm depth, extinguished at 0.25ma, 20 ml of 0.5% bupivicain with dexamethasone given in 5 ml increments. no comps.
[2020-08-21] MEDS ORDERED: fentaNYL 100 MCG/2 ML SDV IVPUSH PRN (11:25)
[2020-08-21] MEDS ORDERED: Acetaminophen 1,000 MG in Premix Bag 1 BAG IV PRN (11:25)
[2020-08-21] MEDS ORDERED: Bisacodyl 10 MG Supp RECTAL PRN (13:16)
[2020-08-21] MEDS ORDERED: diphenhydrAMINE 25 MG Cap PO PRN (13:16)
[2020-08-21] MEDS ORDERED: Sodium Chloride 0.9% 10 ML Syringe FLUSH PRN (13:16)
[2020-08-21] MEDS ORDERED: Acetaminophen 325 MG Tab PO PRN (13:16)
[2020-08-21] MEDS ORDERED: Aluminum Hydroxide/Magnesium Hydroxide/Simethicone Susp 30 ML Cup PO PRN (13:16)
[2020-08-21] MEDS ORDERED: oxyCODONE 5 MG Tab PO PRN (13:16)
[2020-08-21] MEDS ORDERED: Ondansetron 4 MG/2 ML SDV IVPUSH PRN (13:16)
[2020-08-21] MEDS ORDERED: traMADol 50 MG Tab PO PRN (13:16)
[2020-08-21] MEDS ORDERED: Morphine 2 MG/ML SYRINGE IVPUSH PRN (13:16)
[2020-08-21] MEDS ORDERED: Docusate Sodium 100 MG Cap PO PRN (13:16)
[2020-08-21] MEDS ORDERED: 50% Dextrose in Water 50 ML Syringe IV PRN (13:57)
[2020-08-21] MEDS ORDERED: Glucagon,Human Recombinant 1 MG Vial IM PRN (13:57)
--- NOTE | 2020-08-21 13:59 | PCM.CONS ---
H&P History of Present Illness - General Date of Service: 08/21/20 Admit Problem/Dx: s/p LEFT TKA Source of Information: Patient History Limitations: Reports: No Limitations - History of Present Illness Initial Comments - Free Text/Narative: This 65-year-old female with past medical history of hypertension, hyperlipidemia, essential tremor and type 2 diabetes presented today for left TKA with Dr. Centeno. Hospitalist service consulted for medical management of comorbidities postoperatively. Patient recently arrived to the MedSurg unit from PACU. She is alert and oriented. She is complaining of a dry sore throat denies wanting any type of lozenge and is okay with ice chips at this time. She denies any knee pain and reports she is fairly comfortable. She denies any fevers chills chest pain palpitations or shortness of breath. She had a right total knee done in March and has done well since then but continues to complain of this left knee pain which is why she sought out another total knee arthroplasty. A1c is well controlled. She denies any history of alcohol use tobacco use or recreational drug use. - Related Data Allergies/Adverse Reactions: Allergies Allergy/AdvReac Type Severity Reaction Status Date / Time erythromycin base Allergy Hives Verified 08/21/20 14:07 [Erythromycin Base] Fish Containing Products Allergy Difficulty Verified 08/21/20 14:07 Breathing levofloxacin Allergy Difficulty Verified 08/21/20 14:07 Breathing maltose Allergy Hives Verified 08/21/20 14:07 [From Bexxar 131 Iodine] Penicillins Allergy Rash Verified 08/21/20 14:07 shellfish derived Allergy Difficulty Verified 08/21/20 14:07 Breathing tositumomab iodine-131 Allergy Hives Verified 08/21/20 14:07 [From Bexxar 131 Iodine] Home Medications: Home Meds Metoprolol Succinate [Toprol XL] 100 mg PO QAM 09/26/15 [History] Omeprazole Magnesium [Prilosec Otc] 20 mg PO QAM 09/26/15 [History] atorvaSTATin [Lipitor] 10 mg PO BEDTIME 09/26/15 [History] Ascorbic Acid [Vitamin C] 500 mg PO BID 10/14/18 [History] Gabapentin [Neurontin] 600 mg PO TID PRN 10/14/18 [History] metFORMIN HCl [Metformin HCl ER] 500 mg PO BID 10/14/18 [History] Losartan Potassium 100 mg PO QAM 04/02/20 [History] hydroCHLOROthiazide [Hydrochlorothiazide] 25 mg PO QAM 04/02/20 [History] Acetaminophen [Tylenol 8 Hour] 2 tab PO TID PRN 08/13/20 [History] Past Medical History HEENT History: Reports: Allergic Rhinitis, Other (See Below) Other HEENT History: wears glasses Cardiovascular History: Reports: High Cholesterol, Hypertension Respiratory History: Reports: None Gastrointestinal History: Reports: Diverticulosis, GERD Genitourinary History: Reports: None [employer] 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 History: Reports: Musculoskeletal History: Reports: Osteoarthritis Other Musculoskeletal History: left leg pain Neurological History: Reports: Vertigo, Other (See Below) Other Neuro History: essential tremors, has motion sickness Psychiatric History: Reports: None Endocrine/Metabolic History: Reports: Diabetes, Type II, Obesity/BMI 30+ Other Endocrine/Metabolic History: states is not diabetic but takes metformin to "keep the levels good" Hematologic History: Reports: None Immunologic History: Reports: None Oncologic (Cancer) History: Reports: None Dermatologic History: Reports: None, Other (See Below) - Past Surgical History Head Surgeries/Procedures: Reports: None HEENT Surgical History: Reports: None Cardiovascular Surgical History: Reports: None Respiratory Surgical History: Reports: None GI Surgical History: Reports: Colonoscopy Female Surgical History: Reports: Hysterectomy, Salpingo-Oophorectomy, Tubal Ligation Other Female Surgeries/Procedures: hx hysteroscopy Neurological Surgical History: Reports: None Musculoskeletal Surgical History: Reports: Arthroscopic Knee, Carpal Tunnel, Knee Replacement Other Musculoskeletal Surgeries/Procedures:: left foot bunionectomy Oncologic Surgical History: Reports: None Dermatological Surgical History: Reports: None Social & Family History - Tobacco Use Tobacco Use Status *Q: Former Tobacco User Tobacco Use Comment: quit 25 years ago - Recreational Drug Use Recreational Drug Use: No Drug Use in Last 12 Months: No H&P Review of Systems - Review of Systems: Review Of Systems: See Below General: Reports: No Symptoms. Denies: Fever, Chills, Malaise, Weakness HEENT: Reports: Sore Throat Pulmonary: Reports: No Symptoms. Denies: Shortness of Breath Cardiovascular: Reports: No Symptoms. Denies: Chest Pain Gastrointestinal: Reports: No Symptoms. Denies: Abdominal Pain, Black Stool, Bloody Stool, Decreased Appetite, Nausea, Vomiting Genitourinary: Reports: No Symptoms. Denies: Dysuria, Frequency Musculoskeletal: Reports: No Symptoms Skin: Reports: No Symptoms Psychiatric: Reports: No Symptoms Neurological: Reports: No Symptoms Hematologic/Lymphatic: Reports: No Symptoms Immunologic: Reports: No Symptoms Exam - Exam Exam: See Below - Vital Signs Vital Signs: Last Vital Signs Temp 97.9 F 08/21/20 13:11 Pulse 67 08/21/20 13:47 Resp 11 L 08/21/20 13:47 BP 148/73 H 08/21/20 13:47 Pulse Ox 95 08/21/20 13:47 Weight: 83.461 kg - Exam Quality Assessment: Supplemental Oxygen, DVT Prophylaxis General: Alert, Oriented HEENT: Conjunctiva Clear, Mucosa Moist & [place], Posterior Pharynx Clear Lungs: Clear to Auscultation, Normal Respiratory Effort Cardiovascular: Regular Rate, Regular Rhythm GI/Abdominal Exam: Normal Bowel Sounds, Non-Tender Extremities: Normal Inspection, Normal Range of Motion, Non-Tender, No Pedal Edema Neurological: Cranial Nerves Intact Neuro Extensive - Mental Status: Alert, Oriented x3, Normal Mood/Affect, Normal Cognition Psychiatric: Alert, Normal Affect, Normal Mood - Patient Data Lab Results Last 24 hrs: Laboratory Results - last 24 hr 08/21/20 08/21/20 Range/Units 08:01 09:15 SARS-CoV-2 RNA (COCO) NEGATIVE (NEGATIVE) Blood Type A POSITIVE Antibody Screen NEGATIVE Result Diagrams: 08/21/20 14:15 08/21/20 14:15 Sepsis Event Note - Focused Exam Vital Signs: Vital Signs Temp Pulse Resp BP Pulse Ox 08/21/20 13:47 67 11 L 148/73 H 95 08/21/20 13:41 67 12 125/77 96 08/21/20 13:36 68 15 138/74 95 08/21/20 13:31 64 14 131/64 94 L 08/21/20 13:26 73 16 133/64 93 L 08/21/20 13:21 74 13 119/55 L 93 L 08/21/20 13:16 73 14 126/82 97 08/21/20 13:11 97.9 F 75 17 124/74 96 08/21/20 08:50 97.2 F 75 15 138/81 95 Consult PN Assessment/Plan POD#: 0 Procedures: Procedures ALANINE AMINO (ALT) (SGPT) (05/10/19) ASSAY OF SERUM POTASSIUM (05/10/15) BLOOD TYPING SEROLOGIC ABO (09/30/15) BLOOD TYPING SEROLOGIC RH(D) (09/30/15) BREAST TOMOSYNTHESIS BI (09/07/19) C-REACTIVE PROTEIN (05/18/17) CARPAL TUNNEL SURGERY (10/19/18) COMP SCREEN MAMMOGRAM ADD-ON (05/19/16) COMPLETE CBC AUTOMATED (08/08/20) COMPLETE CBC W/AUTO DIFF WBC (05/18/17) COMPREHEN METABOLIC PANEL (04/19/17) CULTURE OTHR SPECIMN AEROBIC (08/08/20) CYTOPATH FL NONGYN SMEARS (09/30/15) DXA BONE DENSITY AXIAL (05/19/16) ELECTROCARDIOGRAM TRACING (09/30/15) EXTREMITY STUDY (11/09/19) GAIT TRAINING THERAPY (05/22/20) GLUCOSE BLOOD TEST (10/19/18) GLYCOSYLATED HEMOGLOBIN TEST (08/08/20) HPV HIGH-RISK TYPES (04/19/15) HYDRATE IV INFUSION ADD-ON (09/30/15) LAPARO-VAG HYST INCL T/O (09/30/15) LIPID PANEL (05/10/19) METABOLIC PANEL TOTAL CA (08/08/20) MRI LOWER EXTREMITY W/O DYE (08/10/17) PROTHROMBIN TIME (08/08/20) PT EVAL LOW COMPLEX 20 MIN (04/26/20) RBC ANTIBODY SCREEN (09/30/15) RBC SED RATE AUTOMATED (05/18/17) ROUTINE VENIPUNCTURE (08/08/20) SARS-COV-2 COVID-19 AMP PRB (04/05/20) SCR MAMMO BI INCL CAD (09/07/19) THER/PROPH/DIAG INJ IV PUSH (09/30/15) THERAPEUTIC EXERCISES (07/04/20) TISSUE EXAM BY PATHOLOGIST (09/30/15) TISSUE EXAM BY PATHOLOGIST (09/30/15) TISSUE EXAM BY PATHOLOGIST (06/10/15) TX/PRO/DX INJ SAME DRUG DAMPENER OPERATOR (09/30/15) ULTRASOUND THERAPY (06/26/20) URINALYSIS AUTO W/O SCOPE (08/08/20) URINALYSIS AUTO W/SCOPE (05/04/18) VASOPNEUMATIC DEVICE THERAPY (05/22/20) VIT D 1 25-DIHYDROXY (05/18/14) VITAMIN B-12 (05/18/14) X-RAY EXAM CHEST 2 VIEWS (03/19/20) X-RAY EXAM KNEE 4 OR MORE (07/09/20) X-RAY EXAM OF ANKLE (11/09/19) X-RAY EXAM OF KNEE 1 OR 2 (05/28/20) X-RAY EXAM OF WRIST (10/06/18) (1) S/P total knee arthroplasty SNOMED Code(s): 8764415733614, 249579945, 4809426060351 Code(s): Z96.659 - PRESENCE OF UNSPECIFIED ARTIFICIAL KNEE JOINT Current Visit: No Qualifiers: Laterality: left Qualified Code(s): Z96.652 - Presence of left artificial knee joint (2) DM type 2 (diabetes mellitus, type 2) SNOMED Code(s): 43091569 Code(s): E11.9 - TYPE 2 DIABETES MELLITUS WITHOUT COMPLICATIONS Current Visit: No Qualifiers: 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 use Diabetes mellitus complication status: without complication Qualified Code(s): E11.9 - Type 2 diabetes mellitus without complications (3) HLD (hyperlipidemia) SNOMED Code(s): 35668567 Code(s): E78.5 - HYPERLIPIDEMIA, UNSPECIFIED Current Visit: No Qualifiers: Hyperlipidemia type: mixed hyperlipidemia Qualified Code(s): E78.2 - Mixed hyperlipidemia (4) HTN (hypertension) SNOMED Code(s): 52394307 Code(s): I10 - ESSENTIAL (PRIMARY) HYPERTENSION Current Visit: No Qualifiers: Hypertension type: essential hypertension Qualified Code(s): I10 - Essential (primary) hypertension Problem List Initiated/Reviewed/Updated: Yes My Orders Last 24 Hours: My Active Orders 08/21/20 13:55 BASIC METABOLIC PANEL,BMP [CHEM] Routine CBC WITH AUTO DIFF [HEME] Routine MG [MAGNESIUM] [CHEM] Routine 08/21/20 13:57 Blood Glucose Check, Bedside [RC] TIDMEALS Dextrose 50% in Water 50 ml IV ASDIRECTED PRN Glucagon,Human Recombinant [GlucaGen] 1 mg IM ASDIRECTED PRN 08/21/20 17:00 Insulin Aspart [NovoLOG] See Protocol SUBCUT TIDAC 08/21/20 21:00 Ascorbic Acid [Vitamin C] 500 mg PO BID atorvaSTATin [Lipitor] 10 mg PO BEDTIME 08/22/20 05:11 BASIC METABOLIC PANEL,BMP [CHEM] AM MG [MAGNESIUM] [CHEM] AM 08/22/20 09:00 Losartan Potassium 100 mg PO QAM Metoprolol Succinate [Toprol XL] 100 mg PO QAM hydroCHLOROthiazide 25 mg PO QAM Plan: This 65-year-old female admitted with left TKA, hospitalist service consulted for medical management of comorbidities postoperatively. 1. S/p left TKA -Orders per orthopedics -ASA for VTE prophylaxis 2. HTN/HLD -Monitor BMPs daily -Continue losartan, metoprolol, HCTZ - Mg 1.3 will supplement IV with 4 gm Magnesium. Recheck in am. 3. DM type II -Hold oral medications may resume Metformin on discharge -NovoLog sliding scale with meals -Check blood sugars 3 times daily AC and as needed VTE prophylaxis: ASA per orthopedics GI prophylaxis: Pepcid CODE STATUS: Full code
[2020-08-21] MEDS ORDERED: Famotidine 20 MG/2 ML SDV IVPUSH SCH (14:00)
--- NOTE | 2020-08-21 14:04 | CR ---
INDICATION: Post surgical evaluation. TECHNIQUE: AP and lateral view left knee performed at 1:23 p.m.. FINDINGS: The patellar, femoral and tibial components of the new left knee arthroplasty appear anatomically aligned. There is no evidence of a fracture. IMPRESSION: Normal radiographic appearance of the new left knee arthroplasty. Dictated by David Nielson MD @ Aug 21 2020 2:02PM Signed by Dr. David Nielson @ Aug 21 2020 2:03PM
--- NOTE | 2020-08-21 14:07 | PCM.OPNOTE ---
- General Post-Op/Procedure Note Date of Surgery/Procedure: 08/21/20 Operative Procedure(s): Left total knee replacement using [employer] system Findings: Left knee grade 4 medial compartment arthritis, grade 1 lateral compartment arthritis, grade 2 patellofemoral compartment arthritis Pre Op Diagnosis: Left knee grade 4 medial compartment osteoarthritis Post-Op Diagnosis: Left knee grade 4 medial compartment osteoarthritis Anesthesia Technique: General LMA, Spinal Primary Surgeon: Prakash Centeno [employer] Supervisor: Bria Mcdonald [employer] Supervisor Was Necessary: Positioning and retraction Pathology: Bone cuts to pathology EBL in mLs: 10 Complications: None Free Text/Narrative:: Patient had previously had a right total knee replacement with an excellent outcome. She had failed nonoperative management of her left knee arthritis. He rediscussed the risks and benefits of surgery. All questions were answered. Patient consented to proceed with surgery. She was medically optimized for surgery. Patient was taken to the operating room. After a spinal anesthetic, she was placed in a supine position and also given anesthetic by LMA. Tourniquet was placed around the left proximal thigh. Left lower extremities prepped and dr aped in usual sterile manner. The leg elevated the tourniquet inflated. A midline incision was used. Skin was incised with a scalpel. Subcutaneous tissue was incised electrocautery. A medial parapatellar arthrotomy was performed. The patella was everted. Soft tissues were excised. The distal femur was cut with an intramedullary alignment guide. The femur was then sized to a size 4 and the additional cuts made with a constrained cutting guide. The trial component fit well. Lug holes were punched. The tibia was cut with an intramedullary alignment guide. The tibia was sized to size 4. Soft tissues and osteophytes were removed. The keel was punched. The patella was sized to 35 mm and the holes drilled after making a cut with a cutting guide and then freehand finishing cut. The components were then cemented in place with antibiotic cement. First the #4 tibial component was cemented and excess cement removed. An 11 mm polyethylene insert was then placed. The #4 cobalt chrome cruciate retaining femoral component was then cemented and excess cement removed. The patellar component was cemented and excess cement removed. The cement was allowed to harden and the knee was reinspected and any excess cement removed. The patella was slightly maltracking so a lateral release was performed with an inside-out technique so there was no communication with the subcutaneous dissection. The knee was stable throughout the range of motion. The arthrotomy was repaired with interrupted and running #1 Vicryl suture. The subcutaneous tissue was repaired with interrupted 2-0 Vicryl suture. Skin was closed with running Monocryl suture. A sterile dressing was applied. Patient was accompanied the cover room in stable condition. Pain medication: NSAIDs and acetaminophen Prophylactic antibiotics: Ancef Venous thromboembolism prophylaxis: Aspirin for 90 days Restrictions: Weightbearing as tolerated on left lower extremity with assistive device as needed. Patient should receive physical therapy according to the total knee arthroplasty protocol. No restrictions. Intake & Output 08/20/20 08/21/20 08/21/20 22:59 06:59 14:59 Intake Total 1700 Balance 1700
[2020-08-21 14:53] LABS: BLOOD UREA NITROGEN,BUN 9 mg/dL (7.0-18.0); CARBON DIOXIDE,CO2 28.8 mmol/L (21.0-32.0); CHLORIDE,CL 103 mmol/L (98-107); GLUCOSE RANDOM 126 mg/dL (74-106); POTASSIUM,K 4.5 mmol/L (3.5-5.1); SODIUM,NA 139 mmol/L (136-145)
[2020-08-21] MEDS: Ketorolac 15 MG/ML SDV IVPUSH SCH ×2 (15:09→19:12)
[2020-08-21] MEDS ORDERED: Magnesium Sulfate/Water 4 GM/100 ML BAG IV ONE (15:13)
--- NOTE | 2020-08-21 15:51 | PCM.POSTAN ---
POST ANESTHESIA ASSESSMENT - MENTAL STATUS Mental Status: Alert, Oriented - VITAL SIGNS Vital Signs: Last Vital Signs Temp 97.7 F 08/21/20 15:25 Pulse 54 L 08/21/20 15:25 Resp 16 08/21/20 15:25 BP 113/67 08/21/20 15:25 Pulse Ox 96 08/21/20 15:25 - RESPIRATORY Respiratory Status: Respiratory Rate WNL, Airway Patent, O2 Saturation Stable - CARDIOVASCULAR CV Status: Pulse Rate WNL, Blood Pressure Stable - GASTROINTESTINAL GI Status: No Symptoms - POST OP HYDRATION Hydration Status: Adequate & Stable
[2020-08-21] MEDS: Clindamycin Phosphate in D5W 600 MG in Premix Bag 50 BAG IV SCH ×2 (18:17)
[2020-08-21] MEDS: Aspirin 325 MG Tab PO SCH (18:19)
--- NOTE | 2020-08-21 18:19 | PCM.SN.2 ---
- Free Text/Narrative Note: Ortho Note I received a call from the charge nurse. Patient had a near miss fall. Her leg gave out while she was walking to the bathroom. Patient did not fall and nurse and were able to support her and get her in a wheelchair. I followed up with Dr. Fink. Patient received a femoral nerve block. I had communicated that I wanted a regional block for pain management but I did not specify an adductor canal block. Quadriceps weakness is a known effect of femoral nerve blocks. I spoke with the patient and she understands. She was not injured.
[2020-08-21] MEDS: Insulin Aspart 100 Units/ML 3 ML Pen SUBCUT SCH (18:56)
[2020-08-21] MEDS: atorvaSTATin 10 MG Tab PO SCH (21:00)
[2020-08-21] MEDS: Ascorbic Acid 500 MG Tab PO SCH (21:00)
[2020-08-21] MEDS: Sodium Chloride 0.9% 2.5 ML Syringe FLUSH PRN (21:03)
[2020-08-22] MEDS: Ketorolac 15 MG/ML SDV IVPUSH SCH (01:54)
[2020-08-22] MEDS: Clindamycin Phosphate in D5W 600 MG in Premix Bag 50 BAG IV SCH ×2 (02:02)
[2020-08-22 06:14] LABS: BLOOD UREA NITROGEN,BUN 15 mg/dL (7.0-18.0); CARBON DIOXIDE,CO2 21.7 mmol/L (21.0-32.0); CHLORIDE,CL 95 mmol/L (98-107); GLUCOSE RANDOM 117 mg/dL (74-106); POTASSIUM,K 4.2 mmol/L (3.5-5.1); SODIUM,NA 128 mmol/L (136-145)
[2020-08-22] MEDS: Insulin Aspart 100 Units/ML 3 ML Pen SUBCUT SCH ×3 (07:07→17:08)
--- NOTE | 2020-08-22 08:17 | PCM48HPAN ---
Post Anesthesia Note - EVALUATION WITHIN 48HRS OF ANESTHETIC Vital Signs in Normal Range: Yes Patient Participated in Evaluation: Yes Respiratory Function Stable: Yes Airway Patent: Yes Cardiovascular Function Stable: Yes Hydration Status Stable: Yes Pain Control Satisfactory: Yes Nausea and Vomiting Control Satisfactory: Yes Mental Status Recovered: Yes Vital Signs: Last Vital Signs Temp 37.1 C 08/22/20 04:00 Pulse 90 08/22/20 04:00 Resp 20 08/22/20 04:00 BP 127/70 08/22/20 04:00 Pulse Ox 93 L 08/22/20 04:00 - COMMENTS/OBSERVATIONS Free Text/Narrative:: No anesthesia complications or concerns noted at this time.
[2020-08-22] MEDS: Losartan 50 MG Tab PO SCH (08:22)
[2020-08-22] MEDS: Metoprolol Succinate 100 MG Tab.ER PO SCH (08:30)
[2020-08-22] MEDS: Hydrochlorothiazide 25 MG Tab PO SCH (08:30)
[2020-08-22] MEDS: Famotidine 20 MG Tab PO SCH (08:30)
[2020-08-22] MEDS: Ascorbic Acid 500 MG Tab PO SCH ×2 (08:30→20:33)
[2020-08-22] MEDS: Aspirin 325 MG Tab PO SCH (08:30)
[2020-08-22] MEDS: Polyethylene Glycol 3350 Powder 17 GM Packet PO SCH (08:31)
[2020-08-22] MEDS ORDERED: Ibuprofen 800 MG Tab PO PRN (09:00)
--- NOTE | 2020-08-22 12:27 | PCM.SURGPN ---
- General Info Date of Service: 08/22/20 (814) Date of Surgery/Procedure: 08/21/20 (Left TKA) POD#: 1 Admission Diagnosis/Problem: Knee pain Functional Status: Reports: Pain Controlled, Tolerating Diet, Urinating. Denies: Ambulating - Review of Systems General: Denies: Fever Gastrointestinal: Denies: Nausea, Vomiting Musculoskeletal: Denies: Joint Pain (Reports very minimal left knee pain) Neurological: Reports: Confusion (recalled myself, but when talking about nursing staff, would comment about her hospital stay over the weekend, information then corrected by her . ). Denies: Trouble Speaking, Change in Speech - Patient Data Vitals - Most Recent: Last Vital Signs Temp 37.4 C 08/22/20 08:00 Pulse 98 08/22/20 08:30 Resp 17 08/22/20 08:00 BP 118/59 L 08/22/20 08:30 Pulse Ox 92 L 08/22/20 08:00 Weight - Most Recent: 83.461 kg I&O - Last 24 Hours: Intake & Output 08/21/20 08/22/20 08/22/20 22:59 06:59 14:59 Intake Total 700 700 Output Total 0 600 Balance 700 100 Lab Results Last 24 Hrs: Laboratory Results - last 24 hr 08/21/20 08/21/20 08/21/20 Range/Units 14:15 14:15 14:17 WBC 5.01 (4.0-11.0) K/uL RBC 3.85 L (4.30-5.90) M/uL Hgb 11.6 L (12.0-16.0) g/dL Hct 35.6 L (36.0-46.0) % MCV 92.5 (80.0-98.0) fL MCH 30.1 (27.0-32.0) pg MCHC 32.6 (31.0-37.0) g/dL RDW Std Deviation 47.9 (28.0-62.0) fl RDW Coeff of Francine 14 (11.0-15.0) % Plt Count 231 (150-400) K/uL MPV 10.60 (7.40-12.00) fL Neut % (Auto) 82.6 H (48.0-80.0) % Lymph % (Auto) 14.6 L (16.0-40.0) % [place] % (Auto) 2.0 (0.0-15.0) % Eos % (Auto) 0.6 (0.0-7.0) % Baso % (Auto) 0.2 (0.0-1.5) % Neut # (Auto) 4.1 (1.4-5.7) K/uL Lymph # (Auto) 0.7 (0.6-2.4) K/uL [place] # (Auto) 0.1 (0.0-0.8) K/uL Eos # (Auto) 0.0 (0.0-0.7) K/uL Baso # (Auto) 0.0 (0.0-0.1) K/uL Nucleated RBC % 0.0 /100WBC Nucleated RBCs # 0 K/uL Sodium 139 (136-145) mmol/L Potassium 4.5 (3.5-5.1) mmol/L Chloride 103 (98-107) mmol/L Carbon Dioxide 28.8 (21.0-32.0) mmol/L BUN 9 (7.0-18.0) mg/dL Creatinine 0.7 (0.6-1.0) mg/dL Est Cr Clr Drug Dosing 56.02 mL/min Estimated GFR (MDRD) > 60.0 ml/min Glucose 126 H (74-106) mg/dL POC Glucose 124 H (60-110) mg/dL Calcium 8.7 (8.5-10.1) mg/dL Magnesium 1.3 L (1.8-2.4) mg/dL 08/21/20 08/22/20 08/22/20 Range/Units 17:33 02:52 05:25 WBC (4.0-11.0) K/uL RBC (4.30-5.90) M/uL Hgb 8.7 L (12.0-16.0) g/dL Hct 26.0 L (36.0-46.0) % MCV (80.0-98.0) fL MCH (27.0-32.0) pg MCHC (31.0-37.0) g/dL RDW Std Deviation (28.0-62.0) fl RDW Coeff of Francine (11.0-15.0) % Plt Count (150-400) K/uL MPV (7.40-12.00) fL Neut % (Auto) (48.0-80.0) % Lymph % (Auto) (16.0-40.0) % [place] % (Auto) (0.0-15.0) % Eos % (Auto) (0.0-7.0) % Baso % (Auto) (0.0-1.5) % Neut # (Auto) (1.4-5.7) K/uL Lymph # (Auto) (0.6-2.4) K/uL [place] # (Auto) (0.0-0.8) K/uL Eos # (Auto) (0.0-0.7) K/uL Baso # (Auto) (0.0-0.1) K/uL Nucleated RBC % /100WBC Nucleated RBCs # K/uL Sodium (136-145) mmol/L Potassium (3.5-5.1) mmol/L Chloride (98-107) mmol/L Carbon Dioxide (21.0-32.0) mmol/L BUN (7.0-18.0) mg/dL Creatinine (0.6-1.0) mg/dL Est Cr Clr Drug Dosing mL/min Estimated GFR (MDRD) ml/min Glucose (74-106) mg/dL POC Glucose 152 H 110 (60-110) mg/dL Calcium (8.5-10.1) mg/dL Magnesium (1.8-2.4) mg/dL 08/22/20 08/22/20 08/22/20 Range/Units 05:25 06:21 11:31 WBC (4.0-11.0) K/uL RBC (4.30-5.90) M/uL Hgb (12.0-16.0) g/dL Hct (36.0-46.0) % MCV (80.0-98.0) fL MCH (27.0-32.0) pg MCHC (31.0-37.0) g/dL RDW Std Deviation (28.0-62.0) fl RDW Coeff of Francine (11.0-15.0) % Plt Count (150-400) K/uL MPV (7.40-12.00) fL Neut % (Auto) (48.0-80.0) % Lymph % (Auto) (16.0-40.0) % [place] % (Auto) (0.0-15.0) % Eos % (Auto) (0.0-7.0) % Baso % (Auto) (0.0-1.5) % Neut # (Auto) (1.4-5.7) K/uL Lymph # (Auto) (0.6-2.4) K/uL [place] # (Auto) (0.0-0.8) K/uL Eos # (Auto) (0.0-0.7) K/uL Baso # (Auto) (0.0-0.1) K/uL Nucleated RBC % /100WBC Nucleated RBCs # K/uL Sodium 128 L (136-145) mmol/L Potassium 4.2 (3.5-5.1) mmol/L Chloride 95 L (98-107) mmol/L Carbon Dioxide 21.7 (21.0-32.0) mmol/L BUN 15 (7.0-18.0) mg/dL Creatinine 0.7 (0.6-1.0) mg/dL Est Cr Clr Drug Dosing 56.02 mL/min Estimated GFR (MDRD) > 60.0 ml/min Glucose 117 H (74-106) mg/dL POC Glucose 119 H 139 H (60-110) mg/dL Calcium 8.2 L (8.5-10.1) mg/dL Magnesium 1.9 (1.8-2.4) mg/dL Med Orders - Current: Current Medications Acetaminophen (Tylenol) 650 mg PO Q6H PRN PRN Reason: Pain Al Hydroxide/Mg Hydroxide (Mag-Al Plus) 30 ml PO Q4H PRN PRN Reason: Indigestion Ascorbic Acid (Vitamin C) 500 mg PO BID [facility] Last Admin: 08/22/20 08:30 Dose: 500 mg Documented by: Aspirin (Aspirin) 325 mg PO DAILY [facility] Last Admin: 08/22/20 08:30 Dose: 325 mg Documented by: Atorvastatin Calcium (Lipitor) 10 mg PO BEDTIME [facility] Last Admin: 08/21/20 21:00 Dose: 10 mg Documented by: Bisacodyl (Dulcolax) 10 mg RECTAL DAILY PRN PRN Reason: Constipation Dextrose/Water (Dextrose 50% In Water) 50 ml IV ASDIRECTED PRN PRN Reason: Hypoglycemia Diphenhydramine HCl (Benadryl) 25 - 50 mg PO Q6H PRN PRN Reason: Itching Docusate Sodium (Colace) 100 mg PO BID PRN PRN Reason: Constipation Famotidine (Pepcid) 40 mg PO ACBREAKFAST [facility] Last Admin: 08/22/20 08:30 Dose: 40 mg Documented by: Famotidine (Pepcid) 40 mg IVPUSH ONARRIVE [facility] Last Admin: 08/21/20 14:00 Dose: 40 mg Documented by: Glucagon (Glucagen) 1 mg IM ASDIRECTED PRN PRN Reason: Hypoglycemia Hydrochlorothiazide (Hydrochlorothiazide) [facility] Last Admin: 08/22/20 08:30 Dose: 25 mg Documented by: Ropivacaine 49.25 ml/Ketorolac Tromethamine 30 mg/Epinephrine HCl 0.5 mg/Clonidine HCl 80 mcg/ Sodium Chloride 75 mls @ 50 mls/sec INJECT ASDIRECTED [facility] Ibuprofen (Motrin) 800 mg PO Q6H PRN PRN Reason: Pain Insulin Aspart (Novolog) 0 unit SUBCUT TIDAC [facility]; Protocol Last Admin: 08/22/20 11:38 Dose: Not Given Documented by: Losartan Potassium (Cozaar) 100 mg PO [facility] Last Admin: 08/22/20 08:22 Dose: 100 mg Documented by: Metoprolol Succinate (Toprol Xl) 100 mg PO [facility] Last Admin: 08/22/20 08:30 Dose: 100 mg Documented by: Morphine Sulfate (Morphine) 1 - 2 mg IVPUSH Q3H PRN PRN Reason: Pain Ondansetron HCl (Zofran) 4 mg IVPUSH Q6H PRN PRN Reason: Nausea/Vomiting Oxycodone HCl (Oxycodone) 5 - 10 mg PO Q4H PRN PRN Reason: Pain Polyethylene Glycol (Miralax) 17 gm PO DAILY [facility] Last Admin: 08/22/20 08:31 Dose: 17 gm Documented by: Scopolamine (Transderm-Scop) 1.5 mg TRDERM ONARRIVE [facility] Last Admin: 08/21/20 09:17 Dose: 1.5 mg Documented by: Sodium Chloride (Saline Flush) 10 ml FLUSH ASDIRECTED PRN PRN Reason: Keep Vein Open Sodium Chloride (Saline Flush) 2.5 ml FLUSH ASDIRECTED PRN PRN Reason: Keep Vein Open Last Admin: 08/21/20 21:03 Dose: 2.5 ml Documented by: Tramadol HCl (Ultram) 50 - 100 mg PO Q6H PRN PRN Reason: Pain Discontinued Medications Bupivacaine HCl (Marcaine 0.5%) Confirm Administered Dose 30 ml .ROUTE .STK-MED ONE Stop: 08/21/20 07:37 Dexamethasone (Dexamethasone) Confirm Administered Dose 20 mg .ROUTE .STK-MED ONE Stop: 08/21/20 08:20 Fentanyl (Sublimaze) Confirm Administered Dose 100 mcg .ROUTE .STK-MED ONE Stop: 08/21/20 07:08 Fentanyl (Sublimaze) 50 mcg IVPUSH Q5M PRN PRN Reason: Pain Glycopyrrolate (Robinul) Confirm Administered Dose 0.2 mg .ROUTE .STK-MED ONE Stop: 08/21/20 07:10 Tranexamic Acid 1,000 mg/ (Sodium Chloride) 110 mls @ 600 mls/hr IV ASDIRECTED ONE Stop: 08/21/20 08:10 Last Admin: 08/21/20 22:07 Dose: Not Given Documented by: Lactated Ringer's (Ringers, Lactated) 1,000 mls @ 100 mls/hr IV ASDIRECTED [facility] Last Admin: 08/21/20 14:49 Dose: 100 mls/hr Documented by: Clindamycin Phosphate 600 mg/ (Premix) 50 mls @ 100 mls/hr IV ONARRIVE ONE Stop: 08/21/20 09:29 Last Admin: 08/21/20 09:28 Dose: 100 mls/hr Documented by: Acetaminophen 1,000 mg/ Premix 100 mls @ 400 mls/hr IV ONETIME PRN PRN Reason: Pain Clindamycin Phosphate 600 mg/ (Premix) 50 mls @ 100 mls/hr IV Q8H [facility] Stop: 08/22/20 03:29 Last Admin: 08/22/20 02:02 Dose: 100 mls/hr Documented by: Magnesium Sulfate (Magnesium Sulfate In Water 4 Gm/100 Ml) 4 gm in 100 mls @ 33.333 mls/hr IV ONETIME ONE Stop: 08/21/20 18:12 Last Admin: 08/21/20 15:31 Dose: 33.333 mls/hr Documented by: Ketorolac Tromethamine (Toradol) Confirm Administered Dose 0 mg .ROUTE .STK-MED ONE Stop: 08/21/20 07:10 Ketorolac Tromethamine (Toradol) 15 mg IVPUSH Q6H [facility] Stop: 08/22/20 05:00 Last Admin: 08/22/20 01:54 Dose: 15 mg Documented by: Lidocaine (Xylocaine-Mpf 2%) Confirm Administered Dose 5 ml .ROUTE .STK-MED ONE Stop: 08/21/20 07:10 Midazolam HCl (Versed 1 Mg/Ml) Confirm Administered Dose 0 mg .ROUTE .STK-MED ONE Stop: 08/21/20 07:08 Midazolam HCl (Versed 1 Mg/Ml) Confirm Administered Dose 2 mg .ROUTE .STK-MED ONE Stop: 08/21/20 09:54 Midazolam HCl (Versed 1 Mg/Ml) Confirm Administered Dose 2 mg .ROUTE .STK-MED ONE Stop: 08/21/20 10:39 Ondansetron HCl (Zofran) Confirm Administered Dose 4 mg .ROUTE .STK-MED ONE Stop: 08/21/20 07:10 Propofol (Diprivan 20 Ml) Confirm Administered Dose 200 mg .ROUTE .STK-MED ONE Stop: 08/21/20 07:08 - Exam Wound/Incisions: Dressing Dry and Intact (Surgical dressing intact to left knee), No Drainage Quality Assessment: DVT Prophylaxis (ASA 325mg started yesterday) General: Alert, Oriented, Cooperative, No Acute Distress Lungs: Normal Respiratory Effort Extremities: No Pedal Edema, Normal Capillary Refill, Other (sensation intact to medial and lateral thigh. generalized leg weakness (quad strength). Sensation intact to LE. Active plantarflexion and dorsiflexion to ankle. ) Neurological: Normal Speech Psy/Mental Status: Alert Sepsis Event Note - Evaluation Sepsis Screening Result: No Definite Risk - Focused Exam Vital Signs: Vital Signs Temp Pulse Pulse Resp BP BP Pulse Ox 08/22/20 08:30 98 118/59 L 08/22/20 08:22 118/59 L 08/22/20 08:00 37.4 C 98 17 118/59 L 92 L 08/22/20 04:00 37.1 C 90 20 127/70 93 L - Problem List Review Problem List Initiated/Reviewed/Updated: Yes - My Orders Last 24 Hours: Active Orders 24 hr Category Date Time Status Blood Glucose Check, Bedside [RC] TIDMEALS Care 08/21/20 13:57 Active Communication Order [RC] PRN Care 08/21/20 13:16 Active Cooling Warming Measures [RC] ASDIRECTED Care 08/21/20 13:16 Active Neurovascular Check [RC] Q2HR Care 08/21/20 13:16 Active Notify Provider Consults [RC] ASDIRECTED Care 08/21/20 13:19 Active Notify Provider Vital Signs [RC] ASDIRECTED Care 08/21/20 13:16 Active RT Incentive Spirometry [RC] Q1HWA Care 08/21/20 13:16 Active Vital Signs [RC] Q4H Care 08/21/20 13:16 Active Wound Care [RC] DAILY Care 08/21/20 13:16 Active Consult to Physician [CONS] Routine Cons 08/21/20 13:16 Active PT Evaluation and Treatment [CONS] Routine Cons 08/21/20 13:16 Active [place] [employer] Diet [DIET] Diet 08/21/20 Dinner Active HEMOGLOBIN/HEMATOCRIT,HH [HEME] DAILY Lab 08/23/20 06:00 Ordered HEMOGLOBIN/HEMATOCRIT,HH [HEME] Routine Lab 08/22/20 15:00 Ordered Acetaminophen [TylenoL] Med 08/21/20 13:16 Active 650 mg PO Q6H PRN Alum Hydrox/Mag Hydrox/Simeth [Mag-Al Plus] Med 08/21/20 13:16 Active 30 ml PO Q4H PRN Ascorbic Acid [Vitamin C] Med 08/21/20 21:00 Active 500 mg PO BID Aspirin Med 08/21/20 19:00 Active 325 mg PO DAILY Dextrose 50% in Water Med 08/21/20 13:57 Active 50 ml IV ASDIRECTED PRN Docusate Sodium [Colace] Med 08/21/20 13:16 Active 100 mg PO BID PRN Famotidine [Pepcid] Med 08/21/20 14:00 Active 40 mg IVPUSH ONARRIVE Famotidine [Pepcid] Med 08/22/20 07:30 Active 40 mg PO ACBREAKFAST Glucagon,Human Recombinant [GlucaGen] Med 08/21/20 13:57 Active 1 mg IM ASDIRECTED PRN Ibuprofen [Motrin] Med 08/22/20 09:00 Active 800 mg PO Q6H PRN Insulin Aspart [NovoLOG] Med 08/21/20 17:00 Active See Protocol SUBCUT TIDAC Losartan [Cozaar] Med 08/22/20 09:00 Active 100 mg PO QAM Metoprolol Succinate [Toprol XL] Med 08/22/20 09:00 Active 100 mg PO QAM Morphine Med 08/21/20 13:16 Active 1 - 2 mg IVPUSH Q3H PRN Ondansetron [Zofran] Med 08/21/20 13:16 Active 4 mg IVPUSH Q6H PRN Sodium Chloride 0.9% [Saline Flush] Med 08/21/20 13:16 Active 10 ml FLUSH ASDIRECTED PRN Sodium Chloride 0.9% [Saline Flush] Med 08/21/20 13:16 Active 2.5 ml FLUSH ASDIRECTED PRN atorvaSTATin [Lipitor] Med 08/21/20 21:00 Active 10 mg PO BEDTIME bisacodyL [Dulcolax] Med 08/21/20 13:16 Active 10 mg RECTAL DAILY PRN diphenhydrAMINE [Benadryl] Med 08/21/20 13:16 Active 25 - 50 mg PO Q6H PRN hydroCHLOROthiazide Med 08/22/20 09:00 Active 25 mg PO QAM oxyCODONE Med 08/21/20 13:16 Active 5 - 10 mg PO Q4H PRN polyethylene glycoL 3350 [MiraLAX] Med 08/22/20 09:00 Active 17 gm PO DAILY traMADol [Ultram] Med 08/21/20 13:16 Active 50 - 100 mg PO Q6H PRN Convert IV to Saline Lock [OM.PC] PRN Oth 08/21/20 13:30 Ordered Convert IV to Saline Lock [OM.PC] PRN Oth 08/22/20 13:30 Ordered Ice Therapy [OM.PC] Routine Oth 08/21/20 13:16 Ordered Medication Orders Acetaminophen (Tylenol) 650 mg PO Q6H PRN PRN Reason: Pain Al Hydroxide/Mg Hydroxide (Mag-Al Plus) 30 ml PO Q4H PRN PRN Reason: Indigestion Ascorbic Acid (Vitamin C) 500 mg PO BID [facility] Last Admin: 08/22/20 08:30 Dose: 500 mg Documented by: Admin: 08/21/20 21:00 Dose: 500 mg Documented by: VEL Aspirin (Aspirin) 325 mg PO DAILY [facility] Last Admin: 08/22/20 08:30 Dose: 325 mg Documented by: Admin: 08/21/20 18:19 Dose: 325 mg Documented by: HAL Atorvastatin Calcium (Lipitor) 10 mg PO BEDTIME [facility] Last Admin: 08/21/20 21:00 Dose: 10 mg Documented by: VEL Bisacodyl (Dulcolax) 10 mg RECTAL DAILY PRN PRN Reason: Constipation Dextrose/Water (Dextrose 50% In Water) 50 ml IV ASDIRECTED PRN PRN Reason: Hypoglycemia Diphenhydramine HCl (Benadryl) 25 - 50 mg PO Q6H PRN PRN Reason: Itching Docusate Sodium (Colace) 100 mg PO BID PRN PRN Reason: Constipation Famotidine (Pepcid) 40 mg PO ACBREAKFAST [facility] Last Admin: 08/22/20 08:30 Dose: 40 mg Documented by: YESSICA Famotidine (Pepcid) 40 mg IVPUSH ONARRIVE [facility] Last Admin: 08/21/20 14:00 Dose: 40 mg Documented by: CELI Glucagon (Glucagen) 1 mg IM ASDIRECTED PRN PRN Reason: Hypoglycemia Hydrochlorothiazide (Hydrochlorothiazide) 25 mg PO [facility] Last Admin: 08/22/20 08:30 Dose: 25 mg Documented by: YESSICA Ropivacaine 49.25 ml/Ketorolac Tromethamine 30 mg/Epinephrine HCl 0.5 mg/Clonidine HCl 80 mcg/ Sodium Chloride 75 mls @ 50 mls/sec INJECT ASDIRECTED [facility] Ibuprofen (Motrin) 800 mg PO Q6H PRN PRN Reason: Pain Insulin Aspart (Novolog) 0 unit SUBCUT TIDAC [facility]; Protocol Last Admin: 08/22/20 11:38 Dose: Not Given Documented by: Admin: 08/22/20 07:07 Dose: Not Given Documented by: Admin: 08/21/20 18:56 Dose: Not Given Documented by: HAL Losartan Potassium (Cozaar) [facility] [place] Last Admin: 08/22/20 08:22 Dose: 100 mg Documented by: YESSICA Metoprolol Succinate (Toprol Xl) 100 mg PO QAM [facility] Last Admin: 08/22/20 08:30 Dose: 100 mg Documented by: YESSICA Morphine Sulfate (Morphine) 1 - 2 mg IVPUSH Q3H PRN PRN Reason: Pain Ondansetron HCl (Zofran) 4 mg IVPUSH Q6H PRN PRN Reason: Nausea/Vomiting Oxycodone HCl (Oxycodone) 5 - 10 mg PO Q4H PRN PRN Reason: Pain Polyethylene Glycol (Miralax) 17 gm PO DAILY [facility] Last Admin: 08/22/20 08:31 Dose: 17 gm Documented by: YESSICA Scopolamine (Transderm-Scop) 1.5 mg TRDERM ONARRIVE [facility] Last Admin: 08/21/20 09:17 Dose: 1.5 mg Documented by: CELI Sodium Chloride (Saline Flush) 10 ml FLUSH ASDIRECTED PRN PRN Reason: Keep Vein Open Sodium Chloride (Saline Flush) 2.5 ml FLUSH ASDIRECTED PRN PRN Reason: Keep Vein Open Last Admin: 08/21/20 21:03 Dose: 2.5 ml Documented by: VEL Tramadol HCl (Ultram) 50 - 100 mg PO Q6H PRN PRN Reason: Pain - Assessment Assessment (Free Text/Narrative):: 1) s/p Left TKA 2) post-surgical anemia - Plan Plan (Free Text/Narrative):: Riri's pain is well controlled secondary to femoral nerve block and NSAIDS, but has weakness to left leg from nerve block, and has not been able to ambulate independently. Discharge home deferred until she is able to independently ambulate and transfer. Will reassess tomorrow. Discussed this with Riri and her . Otherwise, afebrile, tolerating food/fluids without N/V. DVT prophylaxis : ASA 325mg was started yesterday. SCDs on bilaterally. 2 additional doses of Clindamycin were infused last night. Hg down to 8.7 form 12.3. Discussed this with hospitalist Amari NEVES who will continue to monitor. Hospitalist services consulting for medical management.
--- NOTE | 2020-08-22 13:50 | PCM.CONSN ---
- General Info Date of Service: 08/22/20 Admission Dx/Problem (Free Text): s/p LEFT TKA Subjective Update: Patient alert and oriented this morning. Happy. Working with physical therapy. She does not have much quad strength still and has been doing bed exercises. Denies any chest pain or shortness of breath no lightheadedness or dizziness. No obvious bleeding noted to right knee incision. Functional Status: Reports: Pain Controlled, Tolerating Diet. Denies: Am bulating - Review of Systems General: Reports: No Symptoms. Denies: Fatigue, Malaise HEENT: Reports: No Symptoms. Denies: Headaches, Sore Throat, Visual Changes Pulmonary: Reports: No Symptoms. Denies: Shortness of Breath Cardiovascular: Reports: No Symptoms. Denies: Chest Pain Gastrointestinal: Reports: No Symptoms. Denies: Abdominal Pain, Nausea, Vomiting Genitourinary: Reports: No Symptoms Musculoskeletal: Reports: No Symptoms Skin: Reports: No Symptoms Neurological: Reports: No Symptoms Psychiatric: Reports: No Symptoms - Patient Data Vitals - Most Recent: Last Vital Signs Temp 99.1 F 08/22/20 13:40 Pulse 67 08/22/20 13:40 Resp 14 08/22/20 13:40 BP 90/50 L 08/22/20 13:40 Pulse Ox 97 08/22/20 13:40 Weight - Most Recent: 83.461 kg I&O - Last 24 Hours: Intake & Output 08/21/20 08/22/20 08/22/20 22:59 06:59 14:59 Intake Total 700 700 Output Total 0 600 Balance 700 100 Lab Results Last 24 Hours: Laboratory Results - last 24 hr 08/21/20 08/21/20 08/21/20 Range/Units 14:15 14:15 14:17 WBC 5.01 (4.0-11.0) K/uL RBC 3.85 L (4.30-5.90) M/uL Hgb 11.6 L (12.0-16.0) g/dL Hct 35.6 L (36.0-46.0) % MCV 92.5 (80.0-98.0) fL MCH 30.1 (27.0-32.0) pg MCHC 32.6 (31.0-37.0) g/dL RDW Std Deviation 47.9 (28.0-62.0) fl RDW Coeff of Francine 14 (11.0-15.0) % Plt Count 231 (150-400) K/uL MPV 10.60 (7.40-12.00) fL Neut % (Auto) 82.6 H (48.0-80.0) % Lymph % (Auto) 14.6 L (16.0-40.0) % [place] % (Auto) 2.0 (0.0-15.0) % Eos % (Auto) 0.6 (0.0-7.0) % Baso % (Auto) 0.2 (0.0-1.5) % Neut # (Auto) 4.1 (1.4-5.7) K/uL Lymph # (Auto) 0.7 (0.6-2.4) K/uL [place] # (Auto) 0.1 (0.0-0.8) K/uL Eos # (Auto) 0.0 (0.0-0.7) K/uL Baso # (Auto) 0.0 (0.0-0.1) K/uL Nucleated RBC % 0.0 /100WBC Nucleated RBCs # 0 K/uL Sodium 139 (136-145) mmol/L Potassium 4.5 (3.5-5.1) mmol/L Chloride 103 (98-107) mmol/L Carbon Dioxide 28.8 (21.0-32.0) mmol/L BUN 9 (7.0-18.0) mg/dL Creatinine 0.7 (0.6-1.0) mg/dL Est Cr Clr Drug Dosing 56.02 mL/min Estimated GFR (MDRD) > 60.0 ml/min Glucose 126 H (74-106) mg/dL POC Glucose 124 H (60-110) mg/dL Calcium 8.7 (8.5-10.1) mg/dL Magnesium 1.3 L (1.8-2.4) mg/dL 08/21/20 08/22/20 08/22/20 Range/Units 17:33 02:52 05:25 WBC (4.0-11.0) K/uL RBC (4.30-5.90) M/uL Hgb 8.7 L (12.0-16.0) g/dL Hct 26.0 L (36.0-46.0) % MCV (80.0-98.0) fL MCH (27.0-32.0) pg MCHC (31.0-37.0) g/dL RDW Std Deviation (28.0-62.0) fl RDW Coeff of Francine (11.0-15.0) % Plt Count (150-400) K/uL MPV (7.40-12.00) fL Neut % (Auto) (48.0-80.0) % Lymph % (Auto) (16.0-40.0) % [place] % (Auto) (0.0-15.0) % Eos % (Auto) (0.0-7.0) % Baso % (Auto) (0.0-1.5) % Neut # (Auto) (1.4-5.7) K/uL Lymph # (Auto) (0.6-2.4) K/uL [place] # (Auto) (0.0-0.8) K/uL Eos # (Auto) (0.0-0.7) K/uL Baso # (Auto) (0.0-0.1) K/uL Nucleated RBC % /100WBC Nucleated RBCs # K/uL Sodium (136-145) mmol/L Potassium (3.5-5.1) mmol/L Chloride (98-107) mmol/L Carbon Dioxide (21.0-32.0) mmol/L BUN (7.0-18.0) mg/dL Creatinine (0.6-1.0) mg/dL Est Cr Clr Drug Dosing mL/min Estimated GFR (MDRD) ml/min Glucose (74-106) mg/dL POC Glucose 152 H 110 (60-110) mg/dL Calcium (8.5-10.1) mg/dL Magnesium (1.8-2.4) mg/dL 08/22/20 08/22/20 08/22/20 Range/Units 05:25 06:21 11:31 WBC (4.0-11.0) K/uL RBC (4.30-5.90) M/uL Hgb (12.0-16.0) g/dL Hct (36.0-46.0) % MCV (80.0-98.0) fL MCH (27.0-32.0) pg MCHC (31.0-37.0) g/dL RDW Std Deviation (28.0-62.0) fl RDW Coeff of Francine (11.0-15.0) % Plt Count (150-400) K/uL MPV (7.40-12.00) fL Neut % (Auto) (48.0-80.0) % Lymph % (Auto) (16.0-40.0) % [place] % (Auto) (0.0-15.0) % Eos % (Auto) (0.0-7.0) % Baso % (Auto) (0.0-1.5) % Neut # (Auto) (1.4-5.7) K/uL Lymph # (Auto) (0.6-2.4) K/uL [place] # (Auto) (0.0-0.8) K/uL Eos # (Auto) (0.0-0.7) K/uL Baso # (Auto) (0.0-0.1) K/uL Nucleated RBC % /100WBC Nucleated RBCs # K/uL Sodium 128 L (136-145) mmol/L Potassium 4.2 (3.5-5.1) mmol/L Chloride 95 L (98-107) mmol/L Carbon Dioxide 21.7 (21.0-32.0) mmol/L BUN 15 (7.0-18.0) mg/dL Creatinine 0.7 (0.6-1.0) mg/dL Est Cr Clr Drug Dosing 56.02 mL/min Estimated GFR (MDRD) > 60.0 ml/min Glucose 117 H (74-106) mg/dL POC Glucose 119 H 139 H (60-110) mg/dL Calcium 8.2 L (8.5-10.1) mg/dL Magnesium 1.9 (1.8-2.4) mg/dL Med Orders - Current: Current Medications Acetaminophen (Tylenol) 650 mg PO Q6H PRN PRN Reason: Pain Al Hydroxide/Mg Hydroxide (Mag-Al Plus) 30 ml PO Q4H PRN PRN Reason: Indigestion Ascorbic Acid (Vitamin C) 500 mg PO BID [facility] Last Admin: 08/22/20 08:30 Dose: 500 mg Documented by: Aspirin (Aspirin) 325 mg PO DAILY [facility] Last Admin: 08/22/20 08:30 Dose: 325 mg Documented by: Atorvastatin Calcium (Lipitor) 10 mg PO BEDTIME [facility] Last Admin: 08/21/20 21:00 Dose: 10 mg Documented by: Bisacodyl (Dulcolax) 10 mg RECTAL DAILY PRN PRN Reason: Constipation Dextrose/Water (Dextrose 50% In Water) 50 ml IV ASDIRECTED PRN PRN Reason: Hypoglycemia Diphenhydramine HCl (Benadryl) 25 - 50 mg PO Q6H PRN PRN Reason: Itching Docusate Sodium (Colace) 100 mg PO BID PRN PRN Reason: Constipation Famotidine (Pepcid) 40 mg PO ACBREAKFAST [facility] Last Admin: 08/22/20 08:30 Dose: 40 mg Documented by: Famotidine (Pepcid) 40 mg IVPUSH ONARRIVE [facility] Last Admin: 08/21/20 14:00 Dose: 40 mg Documented by: Glucagon (Glucagen) 1 mg IM ASDIRECTED PRN PRN Reason: Hypoglycemia Hydrochlorothiazide (Hydrochlorothiazide) [facility] [place] Last Admin: 08/22/20 08:30 Dose: 25 mg Documented by: Ropivacaine 49.25 ml/Ketorolac Tromethamine 30 mg/Epinephrine HCl 0.5 mg/Clonidine HCl 80 mcg/ Sodium Chloride 75 mls @ 50 mls/sec INJECT ASDIRECTED [facility] Ibuprofen (Motrin) 800 mg PO Q6H PRN PRN Reason: Pain Insulin Aspart (Novolog) 0 unit SUBCUT TIDAC [facility]; Protocol Last Admin: 08/22/20 11:38 Dose: Not Given Documented by: Losartan Potassium (Cozaar) 100 mg PO [facility] Last Admin: 08/22/20 08:22 Dose: 100 mg Documented by: Metoprolol Succinate (Toprol Xl) 100 mg PO [facility] Last Admin: 08/22/20 08:30 Dose: 100 mg Documented by: Morphine Sulfate (Morphine) 1 - 2 mg IVPUSH Q3H PRN PRN Reason: Pain Ondansetron HCl (Zofran) 4 mg IVPUSH Q6H PRN PRN Reason: Nausea/Vomiting Oxycodone HCl (Oxycodone) 5 - 10 mg PO Q4H PRN PRN Reason: Pain Polyethylene Glycol (Miralax) 17 gm PO DAILY [facility] Last Admin: 08/22/20 08:31 Dose: 17 gm Documented by: Scopolamine (Transderm-Scop) 1.5 mg [facility] ONARRIVE [facility] Last Admin: 08/21/20 09:17 Dose: 1.5 mg Documented by: Sodium Chloride (Saline Flush) 10 ml FLUSH ASDIRECTED PRN PRN Reason: Keep Vein Open Sodium Chloride (Saline Flush) 2.5 ml FLUSH ASDIRECTED PRN PRN Reason: Keep Vein Open Last Admin: 08/21/20 21:03 Dose: 2.5 ml Documented by: Tramadol HCl (Ultram) 50 - 100 mg PO Q6H PRN PRN Reason: Pain Discontinued Medications Bupivacaine HCl (Marcaine 0.5%) Confirm Administered Dose 30 ml .ROUTE .STK-MED ONE Stop: 08/21/20 07:37 Dexamethasone (Dexamethasone) Confirm Administered Dose 20 mg .ROUTE .STK-MED ONE Stop: 08/21/20 08:20 Fentanyl (Sublimaze) Confirm Administered Dose 100 mcg .ROUTE .STK-MED ONE Stop: 08/21/20 07:08 Fentanyl (Sublimaze) 50 mcg IVPUSH Q5M PRN PRN Reason: Pain Glycopyrrolate (Robinul) Confirm Administered Dose 0.2 mg .ROUTE .STK-MED ONE Stop: 08/21/20 07:10 Tranexamic Acid 1,000 mg/ (Sodium Chloride) 110 mls @ 600 mls/hr IV ASDIRECTED ONE Stop: 08/21/20 08:10 Last Admin: 08/21/20 22:07 Dose: Not Given Documented by: Lactated Ringer's (Ringers, Lactated) 1,000 mls @ 100 mls/hr IV ASDIRECTED [facility] Last Admin: 08/21/20 14:49 Dose: 100 mls/hr Documented by: Clindamycin Phosphate 600 mg/ (Premix) 50 mls @ 100 mls/hr IV ONARRIVE ONE Stop: 08/21/20 09:29 Last Admin: 08/21/20 09:28 Dose: 100 mls/hr Documented by: Acetaminophen 1,000 mg/ Premix 100 mls @ 400 mls/hr IV ONETIME PRN PRN Reason: Pain Clindamycin Phosphate 600 mg/ (Premix) 50 mls @ 100 mls/hr IV Q8H [facility] Stop: 08/22/20 03:29 Last Admin: 08/22/20 02:02 Dose: 100 mls/hr Documented by: Magnesium Sulfate (Magnesium Sulfate In Water 4 Gm/100 Ml) 4 gm in 100 mls @ 33.333 mls/hr IV ONETIME ONE Stop: 08/21/20 18:12 Last Admin: 08/21/20 15:31 Dose: 33.333 mls/hr Documented by: Ketorolac Tromethamine (Toradol) Confirm Administered Dose 0 mg .ROUTE .STK-MED ONE Stop: 08/21/20 07:10 Ketorolac Tromethamine (Toradol) 15 mg IVPUSH Q6H [facility] Stop: 08/22/20 05:00 Last Admin: 08/22/20 01:54 Dose: 15 mg Documented by: Lidocaine (Xylocaine-Mpf 2%) Confirm Administered Dose 5 ml .ROUTE .STK-MED ONE Stop: 08/21/20 07:10 Midazolam HCl (Versed 1 Mg/Ml) Confirm Administered Dose 0 mg .ROUTE .STK-MED ONE Stop: 08/21/20 07:08 Midazolam HCl (Versed 1 Mg/Ml) Confirm Administered Dose 2 mg .ROUTE .STK-MED ONE Stop: 08/21/20 09:54 Midazolam HCl (Versed 1 Mg/Ml) Confirm Administered Dose 2 mg .ROUTE .STK-MED ONE Stop: 08/21/20 10:39 Ondansetron HCl (Zofran) Confirm Administered Dose 4 mg .ROUTE .STK-MED ONE Stop: 08/21/20 07:10 Propofol (Diprivan 20 Ml) Confirm Administered Dose 200 mg .ROUTE .STK-MED ONE Stop: 08/21/20 07:08 - Exam General: Alert, Oriented Lungs: Clear to Auscultation, Normal Respiratory Effort Cardiovascular: Regular Rate, Regular Rhythm GI/Abdominal Exam: Normal Bowel Sounds, Soft, Non-Tender Extremities: Normal Inspection, Normal Range of Motion, Non-Tender, No Pedal Edema Neurological: No New Focal Deficit Psy/Mental Status: Alert, Normal Affect, Normal Mood Sepsis Event Note - Evaluation Sepsis Screening Result: No Definite Risk - Focused Exam Vital Signs: Vital Signs Temp Pulse Pulse Resp BP BP Pulse Ox 08/22/20 13:40 99.1 F 67 14 90/50 L 97 08/22/20 08:30 98 118/59 L 08/22/20 08:22 118/59 L 08/22/20 08:00 99.3 F 98 17 118/59 L 92 L 08/22/20 04:00 98.7 F 90 20 127/70 93 L Consult PN Assessment/Plan POD#: 1 Procedures: Procedures ALANINE AMINO (ALT) (SGPT) (05/10/19) ASSAY OF SERUM POTASSIUM (05/10/15) BLOOD TYPING SEROLOGIC ABO (09/30/15) BLOOD TYPING SEROLOGIC RH(D) (09/30/15) BREAST TOMOSYNTHESIS BI (09/07/19) C-REACTIVE PROTEIN (05/18/17) CARPAL TUNNEL SURGERY (10/19/18) COMP SCREEN MAMMOGRAM ADD-ON (05/19/16) COMPLETE CBC AUTOMATED (08/08/20) COMPLETE CBC W/AUTO DIFF WBC (05/18/17) COMPREHEN METABOLIC PANEL (04/19/17) CULTURE OTHR SPECIMN AEROBIC (08/08/20) CYTOPATH FL NONGYN SMEARS (09/30/15) DXA BONE DENSITY AXIAL (05/19/16) ELECTROCARDIOGRAM TRACING (09/30/15) EXTREMITY STUDY (11/09/19) GAIT TRAINING THERAPY (05/22/20) GLUCOSE BLOOD TEST (10/19/18) GLYCOSYLATED HEMOGLOBIN TEST (08/08/20) HPV HIGH-RISK TYPES (04/19/15) HYDRATE IV INFUSION ADD-ON (09/30/15) LAPARO-VAG HYST INCL T/O (09/30/15) LIPID PANEL (05/10/19) METABOLIC PANEL TOTAL CA (08/08/20) MRI LOWER EXTREMITY W/O DYE (08/10/17) PROTHROMBIN TIME (08/08/20) PT EVAL LOW COMPLEX 20 MIN (04/26/20) RBC ANTIBODY SCREEN (09/30/15) RBC SED RATE AUTOMATED (05/18/17) ROUTINE VENIPUNCTURE (08/08/20) SARS-COV-2 COVID-19 AMP PRB (04/05/20) SCR MAMMO BI INCL CAD (09/07/19) THER/PROPH/DIAG INJ IV PUSH (09/30/15) THERAPEUTIC EXERCISES (07/04/20) TISSUE EXAM BY PATHOLOGIST (09/30/15) TISSUE EXAM BY PATHOLOGIST (09/30/15) TISSUE EXAM BY PATHOLOGIST (06/10/15) TX/PRO/DX INJ SAME DRUG PET GROOMER (09/30/15) ULTRASOUND THERAPY (06/26/20) URINALYSIS AUTO W/O SCOPE (08/08/20) URINALYSIS AUTO W/SCOPE (05/04/18) VASOPNEUMATIC DEVICE THERAPY (05/22/20) VIT D 1 25-DIHYDROXY (05/18/14) VITAMIN B-12 (05/18/14) X-RAY EXAM CHEST 2 VIEWS (03/19/20) X-RAY EXAM KNEE 4 OR MORE (07/09/20) X-RAY EXAM OF ANKLE (11/09/19) X-RAY EXAM OF KNEE 1 OR 2 (05/28/20) X-RAY EXAM OF WRIST (10/06/18) (1) S/P total knee arthroplasty SNOMED Code(s): 9601007118387, 346452831, 8035256470811 Code(s): Z96.659 - PRESENCE OF UNSPECIFIED ARTIFICIAL KNEE JOINT Current Visit: No Qualifiers: Laterality: left Qualified Code(s): Z96.652 - Presence of left artificial knee joint (2) DM type 2 (diabetes mellitus, type 2) SNOMED Code(s): 70920320 Code(s): E11.9 - TYPE 2 DIABETES MELLITUS WITHOUT COMPLICATIONS Current Visit: No Qualifiers: Diabetes mellitus residential insulin use: without extermination inspector use Diabetes mellitus complication status: without complication Qualified Code(s): E11.9 - Type 2 diabetes mellitus without complications (3) HLD (hyperlipidemia) SNOMED Code(s): 59680375 Code(s): E78.5 - HYPERLIPIDEMIA, UNSPECIFIED Current Visit: No Qualifiers: Hyperlipidemia type: mixed hyperlipidemia Qualified Code(s): E78.2 - Mixed hyperlipidemia (4) HTN (hypertension) SNOMED Code(s): 59959794 Code(s): I10 - ESSENTIAL (PRIMARY) HYPERTENSION Current Visit: No Qualifiers: Hypertension type: essential hypertension Qualified Code(s): I10 - Essential (primary) hypertension Problem List Initiated/Reviewed/Updated: Yes My Orders Last 24 Hours: My Active Orders 08/21/20 13:57 Blood Glucose Check, Bedside [RC] TIDMEALS Dextrose 50% in Water 50 ml IV ASDIRECTED PRN Glucagon,Human Recombinant [GlucaGen] 1 mg IM ASDIRECTED PRN 08/21/20 17:00 Insulin Aspart [NovoLOG] See Protocol SUBCUT TIDAC 08/21/20 21:00 Ascorbic Acid [Vitamin C] 500 mg PO BID atorvaSTATin [Lipitor] 10 mg PO BEDTIME 08/22/20 09:00 Losartan [Cozaar] 100 mg PO QAM Metoprolol Succinate [Toprol XL] 100 mg PO QAM hydroCHLOROthiazide 25 mg PO QAM 08/22/20 15:00 HEMOGLOBIN/HEMATOCRIT,HH [HEME] Routine Plan: This 65-year-old female admitted with left TKA, hospitalist service consulted for medical management of comorbidities postoperatively. 1. S/p left TKA -Orders per orthopedics -ASA for VTE prophylaxis -Hemoglobin 8.7 down from 11.6. No obvious bleeding and patient is asymptomatic. Will recheck H&H this evening. 2. HTN/HLD -Monitor BMPs daily -Continue losartan, metoprolol, HCTZ 3. DM type II -Hold oral medications may resume Metformin on discharge -NovoLog sliding scale with meals -Check blood sugars 3 times daily AC and as needed VTE prophylaxis: ASA per orthopedics GI prophylaxis: Pepcid CODE STATUS: Full code
[2020-08-22] MEDS: atorvaSTATin 10 MG Tab PO SCH (20:34)
[2020-08-22] MEDS: Sodium Chloride 0.9% 2.5 ML Syringe FLUSH PRN (20:34)
[2020-08-23 05:33] LABS: BLOOD UREA NITROGEN,BUN 12 mg/dL (7.0-18.0); CARBON DIOXIDE,CO2 25.7 mmol/L (21.0-32.0); CHLORIDE,CL 94 mmol/L (98-107); GLUCOSE RANDOM 127 mg/dL (74-106); POTASSIUM,K 3.6 mmol/L (3.5-5.1); SODIUM,NA 130 mmol/L (136-145)
[2020-08-23] MEDS: Famotidine 20 MG Tab PO SCH (06:45)
[2020-08-23] MEDS: Insulin Aspart 100 Units/ML 3 ML Pen SUBCUT SCH ×2 (07:30→11:16)
[2020-08-23 08:49] VITALS: BP 115/70; PULSE 92
[2020-08-23] MEDS: Ascorbic Acid 500 MG Tab PO SCH (08:51)
[2020-08-23] MEDS: Hydrochlorothiazide 25 MG Tab PO SCH (08:51)
[2020-08-23] MEDS: Aspirin 325 MG Tab PO SCH (08:51)
[2020-08-23] MEDS: Polyethylene Glycol 3350 Powder 17 GM Packet PO SCH (08:52)
[2020-08-23] MEDS: Metoprolol Succinate 100 MG Tab.ER PO SCH (08:52)
[2020-08-23] MEDS: Losartan 50 MG Tab PO SCH (08:52)
--- NOTE | 2020-08-23 08:53 | PCM.CONSN ---
- General Info Date of Service: 08/23/20 Admission Dx/Problem (Free Text): s/p LEFT TKA Subjective Update: Patient doing well this morning. Sitting up in her chair eating breakfast. Has not bedside. She denies any chest pain shortness of breath lightheadedness dizziness or weakness. She is able to ambulate today as she has quadricep feeling and movement. Eager to go home. No black or bloody bowel movements. An incision looks clean dry and intact with no bloody drainage. - Review of Systems General: Denies: Fatigue, Malaise HEENT: Denies: Headaches, Sore Throat Pulmonary: Denies: Shortness of Breath, Cough Cardiovascular: Denies: Chest Pain, Palpitations, Dyspnea on Exertion, Edema Gastrointestinal: Reports: No Symptoms. Denies: Abdominal Pain, Melena, Nausea, Vomiting Genitourinary: Reports: No Symptoms. Denies: Dysuria, Frequency, Burning Musculoskeletal: Reports: No Symptoms Skin: Reports: No Symptoms Neurological: Reports: No Symptoms Psychiatric: Reports: No Symptoms - Patient Data Vitals - Most Recent: Last Vital Signs Temp 97.7 F 08/23/20 08:49 Pulse 92 08/23/20 08:52 Resp 16 08/23/20 08:49 BP 115/70 08/23/20 08:52 Pulse Ox 98 08/23/20 08:49 Weight - Most Recent: 83.461 kg I&O - Last 24 Hours: Intake & Output 08/22/20 08/23/20 08/23/20 22:59 06:59 14:59 Intake Total 955 950 Output Total 350 750 Balance 605 200 Lab Results Last 24 Hours: Laboratory Results - last 24 hr 08/21/20 08/22/20 08/22/20 Range/Units 09:16 11:31 15:11 Hgb 8.0 L (12.0-16.0) g/dL Hct 23.2 L (36.0-46.0) % Sodium (136-145) mmol/L Potassium (3.5-5.1) mmol/L Chloride (98-107) mmol/L Carbon Dioxide (21.0-32.0) mmol/L BUN (7.0-18.0) mg/dL Creatinine (0.6-1.0) mg/dL Est Cr Clr Drug Dosing mL/min Estimated GFR (MDRD) ml/min Glucose (74-106) mg/dL POC Glucose 103 139 H (60-110) mg/dL Calcium (8.5-10.1) mg/dL Magnesium (1.8-2.4) mg/dL 08/22/20 08/23/20 08/23/20 Range/Units 17:03 05:12 05:12 Hgb 7.4 L (12.0-16.0) g/dL Hct 21.6 L (36.0-46.0) % Sodium 130 L (136-145) mmol/L Potassium 3.6 (3.5-5.1) mmol/L Chloride 94 L (98-107) mmol/L Carbon Dioxide 25.7 (21.0-32.0) mmol/L BUN 12 (7.0-18.0) mg/dL Creatinine 0.8 (0.6-1.0) mg/dL Est Cr Clr Drug Dosing 49.01 mL/min Estimated GFR (MDRD) > 60.0 ml/min Glucose 127 H (74-106) mg/dL POC Glucose 129 H (60-110) mg/dL Calcium 8.3 L (8.5-10.1) mg/dL Magnesium 1.7 L (1.8-2.4) mg/dL 08/23/20 Range/Units 06:45 Hgb (12.0-16.0) g/dL Hct (36.0-46.0) % Sodium (136-145) mmol/L Potassium (3.5-5.1) mmol/L Chloride (98-107) mmol/L Carbon Dioxide (21.0-32.0) mmol/L BUN (7.0-18.0) mg/dL Creatinine (0.6-1.0) mg/dL Est Cr Clr Drug Dosing mL/min Estimated GFR (MDRD) ml/min Glucose (74-106) mg/dL POC Glucose 135 H (60-110) mg/dL Calcium (8.5-10.1) mg/dL Magnesium (1.8-2.4) mg/dL Med Orders - Current: Current Medications Acetaminophen (Tylenol) 650 mg PO Q6H PRN PRN Reason: Pain Last Admin: 08/22/20 15:04 Dose: 650 mg Documented by: Al Hydroxide/Mg Hydroxide (Mag-Al Plus) 30 ml PO Q4H PRN PRN Reason: Indigestion Ascorbic Acid (Vitamin C) 500 mg PO BID [facility] Last Admin: 08/23/20 08:51 Dose: 500 mg Documented by: Aspirin (Aspirin) 325 mg PO DAILY [facility] Last Admin: 08/23/20 08:51 Dose: 325 mg Documented by: Atorvastatin Calcium (Lipitor) 10 mg PO BEDTIME [facility] Last Admin: 08/22/20 20:34 Dose: 10 mg Documented by: Bisacodyl (Dulcolax) 10 mg RECTAL DAILY PRN PRN Reason: Constipation Dextrose/Water (Dextrose 50% In Water) 50 ml IV ASDIRECTED PRN PRN Reason: Hypoglycemia Diphenhydramine HCl (Benadryl) 25 - 50 mg PO Q6H PRN PRN Reason: Itching Docusate Sodium (Colace) 100 mg PO BID PRN PRN Reason: Constipation Famotidine (Pepcid) 40 mg PO ACBREAKFAST [facility] Last Admin: 08/23/20 06:45 Dose: 40 mg Documented by: Famotidine (Pepcid) 40 mg IVPUSH ONARRIVE [facility] Last Admin: 08/21/20 14:00 Dose: 40 mg Documented by: Glucagon (Glucagen) 1 mg IM ASDIRECTED PRN PRN Reason: Hypoglycemia Hydrochlorothiazide (Hydrochlorothiazide) 25 mg PO [facility] Last Admin: 08/23/20 08:51 Dose: 25 mg Documented by: Ropivacaine 49.25 ml/Ketorolac Tromethamine 30 mg/Epinephrine HCl 0.5 mg/Clonidine HCl 80 mcg/ Sodium Chloride 75 mls @ 50 mls/sec INJECT ASDIRECTED [facility] Ibuprofen (Motrin) 800 mg PO Q6H PRN PRN Reason: Pain Last Admin: 08/23/20 04:50 Dose: 800 mg Documented by: Insulin Aspart (Novolog) 0 unit SUBCUT TIDAC [facility]; Protocol Last Admin: 08/23/20 07:30 Dose: Not Given Documented by: Losartan Potassium (Cozaar) 100 mg PO [facility] Last Admin: 08/23/20 08:52 Dose: 100 mg Documented by: Metoprolol Succinate (Toprol Xl) 100 mg PO [facility] Last Admin: 08/23/20 08:52 Dose: 100 mg Documented by: Morphine Sulfate (Morphine) 1 - 2 mg IVPUSH Q3H PRN PRN Reason: Pain Ondansetron HCl (Zofran) 4 mg IVPUSH Q6H PRN PRN Reason: Nausea/Vomiting Oxycodone HCl (Oxycodone) 5 - 10 mg PO Q4H PRN PRN Reason: Pain Last Admin: 08/23/20 00:05 Dose: 10 mg Documented by: Polyethylene Glycol (Miralax) 17 gm PO DAILY [facility] Last Admin: 08/23/20 08:52 Dose: Not Given Documented by: Scopolamine (Transderm-Scop) 1.5 mg TRDERM ONARRIVE [facility] Last Admin: 08/21/20 09:17 Dose: 1.5 mg Documented by: Sodium Chloride (Saline Flush) 10 ml FLUSH ASDIRECTED PRN PRN Reason: Keep Vein Open Sodium Chloride (Saline Flush) 2.5 ml FLUSH ASDIRECTED PRN PRN Reason: Keep Vein Open Last Admin: 08/22/20 20:34 Dose: 2.5 ml Documented by: Tramadol HCl (Ultram) 50 - 100 mg PO Q6H PRN PRN Reason: Pain Discontinued Medications Bupivacaine HCl (Marcaine 0.5%) Confirm Administered Dose 30 ml .ROUTE .STK-MED ONE Stop: 08/21/20 07:37 Dexamethasone (Dexamethasone) Confirm Administered Dose 20 mg .ROUTE .STK-MED ONE Stop: 08/21/20 08:20 Fentanyl (Sublimaze) Confirm Administered Dose 100 mcg .ROUTE .STK-MED ONE Stop: 08/21/20 07:08 Fentanyl (Sublimaze) 50 mcg IVPUSH Q5M PRN PRN Reason: Pain Glycopyrrolate (Robinul) Confirm Administered Dose 0.2 mg .ROUTE .STK-MED ONE Stop: 08/21/20 07:10 Tranexamic Acid 1,000 mg/ (Sodium Chloride) 110 mls @ 600 mls/hr IV ASDIRECTED ONE Stop: 08/21/20 08:10 Last Admin: 08/21/20 22:07 Dose: Not Given Documented by: Lactated Ringer's (Ringers, Lactated) 1,000 mls @ 100 mls/hr IV ASDIRECTED [facility] Last Admin: 08/21/20 14:49 Dose: 100 mls/hr Documented by: Clindamycin Phosphate 600 mg/ (Premix) 50 mls @ 100 mls/hr IV ONARRIVE ONE Stop: 08/21/20 09:29 Last Admin: 08/21/20 09:28 Dose: 100 mls/hr Documented by: Acetaminophen 1,000 mg/ Premix 100 mls @ 400 mls/hr IV ONETIME PRN PRN Reason: Pain Clindamycin Phosphate 600 mg/ (Premix) 50 mls @ 100 mls/hr IV Q8H [facility] Stop: 08/22/20 03:29 Last Admin: 08/22/20 02:02 Dose: 100 mls/hr Documented by: Magnesium Sulfate (Magnesium Sulfate In Water 4 Gm/100 Ml) 4 gm in 100 mls @ 33.333 mls/hr IV ONETIME ONE Stop: 08/21/20 18:12 Last Admin: 08/21/20 15:31 Dose: 33.333 mls/hr Documented by: Ketorolac Tromethamine (Toradol) Confirm Administered Dose 0 mg .ROUTE .STK-MED ONE Stop: 08/21/20 07:10 Ketorolac Tromethamine (Toradol) 15 mg IVPUSH Q6H [facility] Stop: 08/22/20 05:00 Last Admin: 08/22/20 01:54 Dose: 15 mg Documented by: Lidocaine (Xylocaine-Mpf 2%) Confirm Administered Dose 5 ml .ROUTE .STK-MED ONE Stop: 08/21/20 07:10 Midazolam HCl (Versed 1 Mg/Ml) Confirm Administered Dose 0 mg .ROUTE .STK-MED ONE Stop: 08/21/20 07:08 Midazolam HCl (Versed 1 Mg/Ml) Confirm Administered Dose 2 mg .ROUTE .STK-MED ONE Stop: 08/21/20 09:54 Midazolam HCl (Versed 1 Mg/Ml) Confirm Administered Dose 2 mg .ROUTE .STK-MED ONE Stop: 08/21/20 10:39 Ondansetron HCl (Zofran) Confirm Administered Dose 4 mg .ROUTE .STK-MED ONE Stop: 08/21/20 07:10 Propofol (Diprivan 20 Ml) Confirm Administered Dose 200 mg .ROUTE .STK-MED ONE Stop: 08/21/20 07:08 - Exam Quality Assessment: DVT Prophylaxis. No: Supplemental Oxygen General: Alert, Oriented, Cooperative, No Acute Distress Neck: Supple Lungs: Clear to Auscultation, Normal Respiratory Effort Cardiovascular: Regular Rate, Regular Rhythm GI/Abdominal Exam: Normal Bowel Sounds, Soft, Non-Tender Extremities: Normal Inspection, Normal Range of Motion, Non-Tender, No Pedal Edema Wound/Incisions: Dressing Dry and Intact, No Drainage Psy/Mental Status: Alert, Normal Affect, Normal Mood Sepsis Event Note - Evaluation Sepsis Screening Result: No Definite Risk - Focused Exam Vital Signs: Vital Signs Temp Pulse Pulse Resp BP BP Pulse Ox 08/23/20 08:52 92 115/70 08/23/20 08:49 97.7 F 92 16 115/70 98 08/23/20 04:41 97.9 F 89 17 125/60 93 L 08/23/20 00:08 98.4 F 84 16 142/67 H 94 L Consult PN Assessment/Plan POD#: 2 Procedures: Procedures ALANINE AMINO (ALT) (SGPT) (05/10/19) ASSAY OF SERUM POTASSIUM (05/10/15) BLOOD TYPING SEROLOGIC ABO (09/30/15) BLOOD TYPING SEROLOGIC RH(D) (09/30/15) BREAST TOMOSYNTHESIS BI (09/07/19) C-REACTIVE PROTEIN (05/18/17) CARPAL TUNNEL SURGERY (10/19/18) COMP SCREEN MAMMOGRAM ADD-ON (05/19/16) COMPLETE CBC AUTOMATED (08/08/20) COMPLETE CBC W/AUTO DIFF WBC (05/18/17) COMPREHEN METABOLIC PANEL (04/19/17) CULTURE OTHR SPECIMN AEROBIC (08/08/20) CYTOPATH FL NONGYN SMEARS (09/30/15) DXA BONE DENSITY AXIAL (05/19/16) ELECTROCARDIOGRAM TRACING (09/30/15) EXTREMITY STUDY (11/09/19) GAIT TRAINING THERAPY (05/22/20) GLUCOSE BLOOD TEST (10/19/18) GLYCOSYLATED HEMOGLOBIN TEST (08/08/20) HPV HIGH-RISK TYPES (04/19/15) HYDRATE IV INFUSION ADD-ON (09/30/15) LAPARO-VAG HYST INCL T/O (09/30/15) LIPID PANEL (05/10/19) METABOLIC PANEL TOTAL CA (08/08/20) MRI LOWER EXTREMITY W/O DYE (08/10/17) PROTHROMBIN TIME (08/08/20) PT EVAL LOW COMPLEX 20 MIN (04/26/20) RBC ANTIBODY SCREEN (09/30/15) RBC SED RATE AUTOMATED (05/18/17) ROUTINE VENIPUNCTURE (08/08/20) SARS-COV-2 COVID-19 AMP PRB (04/05/20) SCR MAMMO BI INCL CAD (09/07/19) THER/PROPH/DIAG INJ IV PUSH (09/30/15) THERAPEUTIC EXERCISES (07/04/20) TISSUE EXAM BY PATHOLOGIST (09/30/15) TISSUE EXAM BY PATHOLOGIST (09/30/15) TISSUE EXAM BY PATHOLOGIST (06/10/15) TX/PRO/DX INJ SAME DRUG WEATHER TEACHER (09/30/15) ULTRASOUND THERAPY (06/26/20) URINALYSIS AUTO W/O SCOPE (08/08/20) URINALYSIS AUTO W/SCOPE (05/04/18) VASOPNEUMATIC DEVICE THERAPY (05/22/20) VIT D 1 25-DIHYDROXY (05/18/14) VITAMIN B-12 (05/18/14) X-RAY EXAM CHEST 2 VIEWS (03/19/20) X-RAY EXAM KNEE 4 OR MORE (07/09/20) X-RAY EXAM OF ANKLE (11/09/19) X-RAY EXAM OF KNEE 1 OR 2 (05/28/20) X-RAY EXAM OF WRIST (10/06/18) (1) S/P total knee arthroplasty SNOMED Code(s): 3084982760885, 175767454, 9324018716169 Code(s): Z96.659 - PRESENCE OF UNSPECIFIED ARTIFICIAL KNEE JOINT Current Visit: No Qualifiers: Laterality: left Qualified Code(s): Z96.652 - Presence of left artificial knee joint (2) DM type 2 (diabetes mellitus, type 2) SNOMED Code(s): 18094662 Code(s): E11.9 - TYPE 2 DIABETES MELLITUS WITHOUT COMPLICATIONS Current Visit: No Qualifiers: Diabetes mellitus buttermaker insulin use: without jail use Diabetes mellitus complication status: without complication Qualified Code(s): E11.9 - Type 2 diabetes mellitus without complications (3) HLD (hyperlipidemia) SNOMED Code(s): 61017757 Code(s): E78.5 - HYPERLIPIDEMIA, UNSPECIFIED Current Visit: No Qualifiers: Hyperlipidemia type: mixed hyperlipidemia Qualified Code(s): E78.2 - Mixed hyperlipidemia (4) HTN (hypertension) SNOMED Code(s): 85952158 Code(s): I10 - ESSENTIAL (PRIMARY) HYPERTENSION Current Visit: No Qualifiers: Hypertension type: essential hypertension Qualified Code(s): I10 - Essential (primary) hypertension Problem List Initiated/Reviewed/Updated: Yes My Orders Last 24 Hours: My Active Orders 08/22/20 09:00 Losartan [Cozaar] 100 mg PO QAM Metoprolol Succinate [Toprol XL] 100 mg PO QAM hydroCHLOROthiazide 25 mg PO QAM Plan: This 65-year-old female admitted with left TKA, hospitalist service consulted for medical management of comorbidities postoperatively. 1. S/p left TKA -Orders per orthopedics -ASA for VTE prophylaxis -Hemoglobin 7.4. Patient is asymptomatic recommended iron supplementation as an outpatient and counseled on signs symptoms of low hemoglobin including lightheadedness dizziness chest pain or palpitations. If she feels these she was encouraged to see PCP for lab work or come to the ER for evaluation. Denies any black or bloody bowel movements 2. HTN/HLD -Monitor BMPs daily -Continue losartan, metoprolol, HCTZ 3. DM type II -Hold oral medications may resume Metformin on discharge -NovoLog sliding scale with meals -Check blood sugars 3 times daily AC and as needed VTE prophylaxis: ASA per orthopedics GI prophylaxis: Pepcid CODE STATUS: Full code
--- NOTE | 2020-08-23 09:36 | PCM.SURGPN ---
- General Info Date of Service: 08/23/20 (0815) Date of Surgery/Procedure: 08/21/20 (Left TKA) POD#: 2 Functional Status: Reports: Pain Controlled (with Ibuprofen), Tolerating Diet (denies N/V), Ambulating (reports walking in her room with staff and her walker yesterday.), Urinating - Review of Systems General: Denies: Fever Musculoskeletal: Reports: Joint Pain (tolerable), Joint Swelling (feels she has less swelling to her knee this morning than yesterday) Psychiatric: Reports: Confusion ( offers that she has had a more difficult time with anesthesia this time than previously, as she called him last night at midnight, [place] and that she needed to use the restroom. ) - Patient Data Vitals - Most Recent: Last Vital Signs Temp 36.5 C 08/23/20 08:49 Pulse 92 08/23/20 08:52 Resp 16 08/23/20 08:49 BP 115/70 08/23/20 08:52 Pulse Ox 98 08/23/20 08:49 Weight - Most Recent: 83.461 kg I&O - Last 24 Hours: Intake & Output 08/22/20 08/23/20 08/23/20 22:59 06:59 14:59 Intake Total 955 950 Output Total 350 750 Balance 605 200 Lab Results Last 24 Hrs: Laboratory Results - last 24 hr 08/21/20 08/22/20 08/22/20 Range/Units 09:16 11:31 15:11 Hgb 8.0 L (12.0-16.0) g/dL Hct 23.2 L (36.0-46.0) % Sodium (136-145) mmol/L Potassium (3.5-5.1) mmol/L Chloride (98-107) mmol/L Carbon Dioxide (21.0-32.0) mmol/L BUN (7.0-18.0) mg/dL Creatinine (0.6-1.0) mg/dL Est Cr Clr Drug Dosing mL/min Estimated GFR (MDRD) ml/min Glucose (74-106) mg/dL POC Glucose 103 139 H (60-110) mg/dL Calcium (8.5-10.1) mg/dL Magnesium (1.8-2.4) mg/dL 08/22/20 08/23/20 08/23/20 Range/Units 17:03 05:12 05:12 Hgb 7.4 L (12.0-16.0) g/dL Hct 21.6 L (36.0-46.0) % Sodium 130 L (136-145) mmol/L Potassium 3.6 (3.5-5.1) mmol/L Chloride 94 L (98-107) mmol/L Carbon Dioxide 25.7 (21.0-32.0) mmol/L BUN 12 (7.0-18.0) mg/dL Creatinine 0.8 (0.6-1.0) mg/dL Est Cr Clr Drug Dosing 49.01 mL/min Estimated GFR (MDRD) > 60.0 ml/min Glucose 127 H (74-106) mg/dL POC Glucose 129 H (60-110) mg/dL Calcium 8.3 L (8.5-10.1) mg/dL Magnesium 1.7 L (1.8-2.4) mg/dL 08/23/20 Range/Units 06:45 Hgb (12.0-16.0) g/dL Hct (36.0-46.0) % Sodium (136-145) mmol/L Potassium (3.5-5.1) mmol/L Chloride (98-107) mmol/L Carbon Dioxide (21.0-32.0) mmol/L BUN (7.0-18.0) mg/dL Creatinine (0.6-1.0) mg/dL Est Cr Clr Drug Dosing mL/min Estimated GFR (MDRD) ml/min Glucose (74-106) mg/dL POC Glucose 135 H (60-110) mg/dL Calcium (8.5-10.1) mg/dL Magnesium (1.8-2.4) mg/dL Med Orders - Current: Current Medications Acetaminophen (Tylenol) 650 mg PO Q6H PRN PRN Reason: Pain Last Admin: 08/22/20 15:04 Dose: 650 mg Documented by: Al Hydroxide/Mg Hydroxide (Mag-Al Plus) 30 ml PO Q4H PRN PRN Reason: Indigestion Ascorbic Acid (Vitamin C) 500 mg PO BID [facility] Last Admin: 08/23/20 08:51 Dose: 500 mg Documented by: Aspirin (Aspirin) 325 mg PO DAILY [facility] Last Admin: 08/23/20 08:51 Dose: 325 mg Documented by: Atorvastatin Calcium (Lipitor) 10 mg PO BEDTIME [facility] Last Admin: 08/22/20 20:34 Dose: 10 mg Documented by: Bisacodyl (Dulcolax) 10 mg RECTAL DAILY PRN PRN Reason: Constipation Dextrose/Water (Dextrose 50% In Water) 50 ml IV ASDIRECTED PRN PRN Reason: Hypoglycemia Diphenhydramine HCl (Benadryl) 25 - 50 mg PO Q6H PRN PRN Reason: Itching Docusate Sodium (Colace) 100 mg PO BID PRN PRN Reason: Constipation Famotidine (Pepcid) 40 mg PO ACBREAKFAST [facility] Last Admin: 08/23/20 06:45 Dose: 40 mg Documented by: Famotidine (Pepcid) 40 mg IVPUSH ONARRIVE [facility] Last Admin: 08/21/20 14:00 Dose: 40 mg Documented by: Glucagon (Glucagen) 1 mg IM ASDIRECTED PRN PRN Reason: Hypoglycemia Hydrochlorothiazide (Hydrochlorothiazide) 25 mg PO [facility] Last Admin: 08/23/20 08:51 Dose: 25 mg Documented by: Ropivacaine 49.25 ml/Ketorolac Tromethamine 30 mg/Epinephrine HCl 0.5 mg/Clonidine HCl 80 mcg/ Sodium Chloride 75 mls @ 50 mls/sec INJECT ASDIRECTED [facility] Ibuprofen (Motrin) 800 mg PO Q6H PRN PRN Reason: Pain Last Admin: 08/23/20 04:50 Dose: 800 mg Documented by: Insulin Aspart (Novolog) 0 unit SUBCUT [facility]; Protocol Last Admin: 08/23/20 07:30 Dose: Not Given Documented by: Losartan Potassium (Cozaar) 100 mg PO [facility] Last Admin: 08/23/20 08:52 Dose: 100 mg Documented by: Metoprolol Succinate (Toprol Xl) 100 mg PO [facility] Last Admin: 08/23/20 08:52 Dose: 100 mg Documented by: Morphine Sulfate (Morphine) 1 - 2 mg IVPUSH Q3H PRN PRN Reason: Pain Ondansetron HCl (Zofran) 4 mg IVPUSH Q6H PRN PRN Reason: Nausea/Vomiting Oxycodone HCl (Oxycodone) 5 - 10 mg PO Q4H PRN PRN Reason: Pain Last Admin: 08/23/20 00:05 Dose: 10 mg Documented by: Polyethylene Glycol (Miralax) 17 gm PO DAILY [facility] Last Admin: 08/23/20 08:52 Dose: Not Given Documented by: Scopolamine (Transderm-Scop) 1.5 mg TRDER ONARRIVE [facility] Last Admin: 08/21/20 09:17 Dose: 1.5 mg Documented by: Sodium Chloride (Saline Flush) 10 ml FLUSH ASDIRECTED PRN PRN Reason: Keep Vein Open Sodium Chloride (Saline Flush) 2.5 ml FLUSH ASDIRECTED PRN PRN Reason: Keep Vein Open Last Admin: 08/22/20 20:34 Dose: 2.5 ml Documented by: Tramadol HCl (Ultram) 50 - 100 mg PO Q6H PRN PRN Reason: Pain Discontinued Medications Bupivacaine HCl (Marcaine 0.5%) Confirm Administered Dose 30 ml .ROUTE .STK-MED ONE Stop: 08/21/20 07:37 Dexamethasone (Dexamethasone) Confirm Administered Dose 20 mg .ROUTE .STK-MED ONE Stop: 08/21/20 08:20 Fentanyl (Sublimaze) Confirm Administered Dose 100 mcg .ROUTE .STK-MED ONE Stop: 08/21/20 07:08 Fentanyl (Sublimaze) 50 mcg IVPUSH Q5M PRN PRN Reason: Pain Glycopyrrolate (Robinul) Confirm Administered Dose 0.2 mg .ROUTE .STK-MED ONE Stop: 08/21/20 07:10 Tranexamic Acid 1,000 mg/ (Sodium Chloride) 110 mls @ 600 mls/hr IV ASDIRECTED ONE Stop: 08/21/20 08:10 Last Admin: 08/21/20 22:07 Dose: Not Given Documented by: Lactated Ringer's (Ringers, Lactated) 1,000 mls @ 100 mls/hr IV ASDIRECTED [facility] Last Admin: 08/21/20 14:49 Dose: 100 mls/hr Documented by: Clindamycin Phosphate 600 mg/ (Premix) 50 mls @ 100 mls/hr IV ONARRIVE ONE Stop: 08/21/20 09:29 Last Admin: 08/21/20 09:28 Dose: 100 mls/hr Documented by: Acetaminophen 1,000 mg/ Premix 100 mls @ 400 mls/hr IV ONETIME PRN PRN Reason: Pain Clindamycin Phosphate 600 mg/ (Premix) 50 mls @ 100 mls/hr IV Q8H [facility] Stop: 08/22/20 03:29 Last Admin: 08/22/20 02:02 Dose: 100 mls/hr Documented by: Magnesium Sulfate (Magnesium Sulfate In Water 4 Gm/100 Ml) 4 gm in 100 mls @ 33.333 mls/hr IV ONETIME ONE Stop: 08/21/20 18:12 Last Admin: 08/21/20 15:31 Dose: 33.333 mls/hr Documented by: Ketorolac Tromethamine (Toradol) Confirm Administered Dose 0 mg .ROUTE .STK-MED ONE Stop: 08/21/20 07:10 Ketorolac Tromethamine (Toradol) 15 mg IVPUSH Q6H [facility] Stop: 08/22/20 05:00 Last Admin: 08/22/20 01:54 Dose: 15 mg Documented by: Lidocaine (Xylocaine-Mpf 2%) Confirm Administered Dose 5 ml .ROUTE .STK-MED ONE Stop: 08/21/20 07:10 Midazolam HCl (Versed 1 Mg/Ml) Confirm Administered Dose 0 mg .ROUTE .STK-MED ONE Stop: 08/21/20 07:08 Midazolam HCl (Versed 1 Mg/Ml) Confirm Administered Dose 2 mg .ROUTE .STK-MED ONE Stop: 08/21/20 09:54 Midazolam HCl (Versed 1 Mg/Ml) Confirm Administered Dose 2 mg .ROUTE .STK-MED ONE Stop: 08/21/20 10:39 Ondansetron HCl (Zofran) Confirm Administered Dose 4 mg .ROUTE .STK-MED ONE Stop: 08/21/20 07:10 Propofol (Diprivan 20 Ml) Confirm Administered Dose 200 mg .ROUTE .STK-MED ONE Stop: 08/21/20 07:08 - Exam Wound/Incisions: Dressing Dry and Intact (Surgical dressing dry. When removed, dry bloody drainage on underlying 4x4 dressings, but no active drainage. ). No: Drainage, Erythema Quality Assessment: DVT Prophylaxis (ASA 325mg daily, bilateral SCDs when in be d) General: Alert, Oriented (orientated this morning to place and time. Recalled my name and name of her night nurse), Cooperative, No Acute Distress Lungs: Normal Respiratory Effort Extremities: No Pedal Edema, Normal Capillary Refill. No: Marquita's Sign Neurological: Normal Speech Psy/Mental Status: Alert Physical Findings Comment:: Incision approximated. No surrounding erythema. No active drainage. Steri- strips intact. AquaCell dressing applied. No swelling, pain or erythema to calf. No pitting edema. Sensation intact to LE. Active plantarflexion and dorsiflexion to ankle. Actively lifted RLE off foot stool with seated in her chair. Knee bent at 70 degrees, then actively/independently lifted RLE back onto foot stool Sepsis Event Note - Evaluation Sepsis Screening Result: No Definite Risk - Focused Exam Vital Signs: Vital Signs Temp Pulse Pulse Resp BP BP Pulse Ox 08/23/20 08:52 92 115/70 08/23/20 08:49 36.5 C 92 16 115/70 98 08/23/20 04:41 36.6 C 89 17 125/60 93 L 08/23/20 00:08 36.9 C 84 16 142/67 H 94 L - Problem List Review Problem List Initiated/Reviewed/Updated: Yes - My Orders Last 24 Hours: Active Orders 24 hr Category Date Time Status Activity as Tolerated [RC] .Routine Care 08/22/20 17:20 Active Ready for Discharge [RC] PER UNIT ROUTINE Care 08/23/20 08:49 Active Ibuprofen [Motrin] Med 08/22/20 09:00 Active 800 mg PO Q6H PRN Losartan [Cozaar] Med 08/22/20 09:00 Active 100 mg PO QAM Metoprolol Succinate [Toprol XL] Med 08/22/20 09:00 Active 100 mg PO QAM hydroCHLOROthiazide Med 08/22/20 09:00 Active 25 mg PO QAM polyethylene glycoL 3350 [MiraLAX] Med 08/22/20 09:00 Active 17 gm PO DAILY Convert IV to Saline Lock [OM.PC] PRN Oth 08/22/20 13:30 Ordered Medication Orders Acetaminophen (Tylenol) 650 mg PO Q6H PRN PRN Reason: Pain Last Admin: 08/22/20 15:04 Dose: 650 mg Documented by: YESSICA Al Hydroxide/Mg Hydroxide (Mag-Al Plus) 30 ml PO Q4H PRN PRN Reason: Indigestion Ascorbic Acid (Vitamin C) 500 mg PO BID [facility] Last Admin: 08/23/20 08:51 Dose: 500 mg Documented by: Admin: 08/22/20 20:33 Dose: 500 mg Documented by: Admin: 08/22/20 08:30 Dose: 500 mg Documented by: Admin: 08/21/20 21:00 Dose: 500 mg Documented by: VEL Aspirin (Aspirin) 325 mg PO DAILY [facility] Last Admin: 08/23/20 08:51 Dose: 325 mg Documented by: Admin: 08/22/20 08:30 Dose: 325 mg Documented by: Admin: 08/21/20 18:19 Dose: 325 mg Documented by: HAL Atorvastatin Calcium (Lipitor) 10 mg PO BEDTIME [facility] Last Admin: 08/22/20 20:34 Dose: 10 mg Documented by: Admin: 08/21/20 21:00 Dose: 10 mg Documented by: VEL Bisacodyl (Dulcolax) 10 mg RECTAL DAILY PRN PRN Reason: Constipation Dextrose/Water (Dextrose 50% In Water) 50 ml IV ASDIRECTED PRN PRN Reason: Hypoglycemia Diphenhydramine HCl (Benadryl) 25 - 50 mg PO Q6H PRN PRN Reason: Itching Docusate Sodium (Colace) 100 mg PO BID PRN PRN Reason: Constipation Famotidine (Pepcid) 40 mg PO ACBREAKFAST [facility] Last Admin: 08/23/20 06:45 Dose: 40 mg Documented by: Admin: 08/22/20 08:30 Dose: 40 mg Documented by: YESSICA Famotidine (Pepcid) 40 mg IVPUSH ONARRIVE [facility] Last Admin: 08/21/20 14:00 Dose: 40 mg Documented by: CELI Glucagon (Glucagen) 1 mg IM ASDIRECTED PRN PRN Reason: Hypoglycemia Hydrochlorothiazide (Hydrochlorothiazide) 25 mg PO QAM [facility] Last Admin: 08/23/20 08:51 Dose: 25 mg Documented by: Admin: 08/22/20 08:30 Dose: 25 mg Documented by: YESSICA Ropivacaine 49.25 ml/Ketorolac Tromethamine 30 mg/Epinephrine HCl 0.5 mg/Clonidine HCl 80 mcg/ Sodium Chloride 75 mls @ 50 mls/sec INJECT ASDIRECTED [facility] Ibuprofen (Motrin) 800 mg PO Q6H PRN PRN Reason: Pain Last Admin: 08/23/20 04:50 Dose: 800 mg Documented by: VEL Insulin Aspart (Novolog) 0 unit SUBCUT TIDAC [facility]; Protocol Last Admin: 08/23/20 07:30 Dose: Not Given Documented by: Admin: 08/22/20 17:08 Dose: Not Given Documented by: Admin: 08/22/20 11:38 Dose: Not Given Documented by: Admin: 08/22/20 07:07 Dose: Not Given Documented by: Admin: 08/21/20 18:56 Dose: Not Given Documented by: HAL Losartan Potassium (Cozaar) 100 mg PO [facility] Last Admin: 08/23/20 08:52 Dose: 100 mg Documented by: Admin: 08/22/20 08:22 Dose: 100 mg Documented by: YESSICA Metoprolol Succinate (Toprol Xl) 100 mg PO [facility] Last Admin: 08/23/20 08:52 Dose: 100 mg Documented by: Admin: 08/22/20 08:30 Dose: 100 mg Documented by: YESSICA Morphine Sulfate (Morphine) 1 - 2 mg IVPUSH Q3H PRN PRN Reason: Pain Ondansetron HCl (Zofran) 4 mg IVPUSH Q6H PRN PRN Reason: Nausea/Vomiting Oxycodone HCl (Oxycodone) 5 - 10 mg PO Q4H PRN PRN Reason: Pain Last Admin: 08/23/20 00:05 Dose: 10 mg Documented by: VEL Polyethylene Glycol (Miralax) 17 gm PO DAILY [facility] Last Admin: 08/23/20 08:52 Dose: Not Given Documented by: Admin: 08/22/20 08:31 Dose: 17 gm Documented by: YESSICA Scopolamine (Transderm-Scop) 1.5 mg TRDER ONARRIVE [facility] Last Admin: 08/21/20 09:17 Dose: 1.5 mg Documented by: CELI Sodium Chloride (Saline Flush) 10 ml FLUSH ASDIRECTED PRN PRN Reason: Keep Vein Open Sodium Chloride (Saline Flush) 2.5 ml FLUSH ASDIRECTED PRN PRN Reason: Keep Vein Open Last Admin: 08/22/20 20:34 Dose: 2.5 ml Documented by: Admin: 08/21/20 21:03 Dose: 2.5 ml Documented by: VEL Tramadol HCl (Ultram) 50 - 100 mg PO Q6H PRN PRN Reason: Pain - Assessment Assessment (Free Text/Narrative):: 1) s/p Left TKA 2) post-surgical anemia - Plan Plan (Free Text/Narrative):: Surgical dressing removed. Incision CDI. AquaCell bandage applied. Pt voices that she is ready to go home today. Her states she is doing better today, and also feels she is ready to be discharged home. She no longer has lack of strength from the femoral nerve block. pain is well controlled with Ibuprofen, and this will be pain management plan at home, supplementing ES Tylenol if needed. Hg dipped below 8.0 Consulted with [facility] and as Riri is not symptomatic, no transfusion advised. She will recommend iron supplement to take at home. Advised plan discharge this afternoon, as to receive PT this morning and have refreshed education on maneuvering steps with her walker this afternoon before going home with her . Information shared with Dr. Centeno.
== END 2020-08-23 12:05 | disposition home or self-care (01) ==
LOC: MW.SDS 08:33 → MW.MS 11:26 → MW.SDS 08-22 13:43 → MW.MS 08-22 13:44
PROVIDERS: ADMIT Orthopaedic Surgery; ATTEND Orthopaedic Surgery
DX: M17.12 Unilateral primary osteoarthritis, left knee (principal); M25.762 Osteophyte, left knee; I10 Essential (primary) hypertension; E78.00 Pure hypercholesterolemia, unspecified; R73.03 Prediabetes; E66.9 Obesity, unspecified; Z68.33 Body mass index [BMI] 33.0-33.9, adult; Z01.812 Encounter for preprocedural laboratory examination; Z20.822 Contact with and (suspected) exposure to COVID-19; Z88.1 Allergy status to other antibiotic agents; Z88.0 Allergy status to penicillin; Z91.013 Allergy to seafood; Z88.8 Allergy status to other drugs, medicaments and biological substances; Z87.891 Personal history of nicotine dependence; Z96.651 Presence of right artificial knee joint; Z79.84 Long term (current) use of oral hypoglycemic drugs; Z79.899 Other long term (current) drug therapy; Z98.890 Other specified postprocedural states
CPT/HCPCS: 27447; 36415; 73560; 80048; 82962; 83735; 85014; 85018; 85025; 86850; 86900; 86901; 87635; 88304; 88311; 97110; 97116; 97161; A9270; C1776; G0378; J1100; J1815; J1885; J2250; J2405; J2704; J3475; J3490; J7120; 99203; J3010; U0002

== ENCOUNTER 2023-05-20 17:03 | Emergency (ER) | payer BC ==
[2023-05-20] MEDS ORDERED: Ondansetron 4 MG/2 ML SDV IVPUSH ONE (17:23)
[2023-05-20] MEDS ORDERED: Sodium Chloride 0.9% 1,000 ML IV ONE (17:23)
[2023-05-20 17:52] LABS: BASOPHILS ABSOLUTE AUTO 0.02 K/uL (0.00-0.20); BASOPHILS PERCENT AUTO 0.4 % (0.0-1.0); EOSINOPHILS ABSOLUTE AUTO 0.01 K/uL (0.00-0.45); EOSINOPHILS PERCENT AUTO 0.2 % (0.0-6.0); HEMATOCRIT 36.7 % (37.0-47.0); HEMOGLOBIN 12.7 g/dL (12.0-16.0); IMMATURE GRAN ABSOLUTE AUTO 0.01 K/uL (0.00-0.05); IMMATURE GRAN PERCENT AUTO 0.2 % (0.0-0.4); LYMPHOCYTES ABSOLUTE AUTO 0.85 K/uL (1.00-4.80); MEAN CORPUSCULAR HEMOGLOBIN 31.8 pg (28.0-32.0); MEAN CORPUSCULAR HGB CONC 34.6 g/dL (32.0-36.0); MEAN CORPUSCULAR VOLUME 91.8 fL (83.0-99.0); MEAN PLATELET VOLUME 11.3 fL (9.4-12.3); MONOCYTES ABSOLUTE AUTO 0.66 K/uL (0.00-0.80); MONOCYTES PERCENT AUTO 13.2 % (0.0-8.0); NEUTROPHILS ABSOLUTE AUTO 3.44 K/uL (1.80-7.70); PLATELET COUNT,PLT 162 K/uL (150-400); WHITE BLOOD CELL COUNT,WBC 4.99 K/uL (3.9-11.3)
[2023-05-20 17:59] LABS: CORONAVIRUS COVID-19 NAA POSITIVE (NEGATIVE); INFLUENZA A NAA NEGATIVE (NEGATIVE); INFLUENZA B NAA NEGATIVE (NEGATIVE)
[2023-05-20 18:17] LABS: D-DIMER QUANTITATIVE 0.37 mg/L FEU (0.00-0.50); INR 0.99 (0.86-1.11)
[2023-05-20 18:19] LABS: A/G RATIO 0.8 (0.9-1.6); ALBUMIN 3.4 g/dL (3.4-5.0); BILIRUBIN TOTAL 0.5 mg/dL (0.2-1.0); CALCIUM 8.8 mg/dL (8.5-10.1); CARBON DIOXIDE,CO2 25.3 mmol/L (21.0-32.0); EST CRCL DRUG DOSING (CG) 41.4 mL/min; MAGNESIUM 1.7 mg/dL (1.8-2.4); POTASSIUM,K 3.3 mmol/L (3.5-5.1); PROTEIN TOTAL,TP 7.6 g/dL (6.4-8.2)
[2023-05-20 18:50] VITALS: BP 163/63; PULSE 90
== END 2023-05-20 18:47 | disposition home or self-care (01) ==
LOC: MW.ED 17:03
DX: U07.1 COVID-19 (principal); I10 Essential (primary) hypertension; E78.00 Pure hypercholesterolemia, unspecified; K21.9 Gastro-esophageal reflux disease without esophagitis; M19.90 Unspecified osteoarthritis, unspecified site; E11.9 Type 2 diabetes mellitus without complications; E66.9 Obesity, unspecified; Z79.82 Long term (current) use of aspirin; Z79.84 Long term (current) use of oral hypoglycemic drugs; Z79.899 Other long term (current) drug therapy; Z88.1 Allergy status to other antibiotic agents; Z91.013 Allergy to seafood; Z91.011 Allergy to milk products; Z68.36 Body mass index [BMI] 36.0-36.9, adult
CPT/HCPCS: 0240U; 36415; 71045; 80053; 83690; 83735; 83880; 84484; 85025; 85379; 85610; 85730; 93005; 96361; 96374; 99284; J2405; J7030; 93010

== ENCOUNTER 2024-07-09 14:23 | Emergency (ER) | payer BC ==
[2024-07-09] MEDS ORDERED: Sodium Chloride 0.9% 2.5 ML Syringe FLUSH PRN (15:17)
[2024-07-09] MEDS ORDERED: Sodium Chloride 0.9% 10 ML Syringe FLUSH PRN (15:17)
[2024-07-09 15:32] LABS: BASOPHILS ABSOLUTE AUTO 0.03 K/uL (0.00-0.20); BASOPHILS PERCENT AUTO 0.5 % (0.0-1.0); EOSINOPHILS ABSOLUTE AUTO 0.02 K/uL (0.00-0.45); EOSINOPHILS PERCENT AUTO 0.3 % (0.0-6.0); HEMATOCRIT 39.6 % (37.0-47.0); HEMOGLOBIN 13.7 g/dL (12.0-16.0); IMMATURE GRAN ABSOLUTE AUTO 0.06 K/uL (0.00-0.05); LYMPHOCYTES ABSOLUTE AUTO 1.36 K/uL (1.00-4.80); LYMPHOCYTES PERCENT AUTO 22.1 % (24.0-44.0); MEAN CORPUSCULAR HEMOGLOBIN 32.1 pg (28.0-32.0); MEAN CORPUSCULAR HGB CONC 34.6 g/dL (32.0-36.0); MEAN CORPUSCULAR VOLUME 92.7 fL (83.0-99.0); MEAN PLATELET VOLUME 12.3 fL (9.4-12.3); MONOCYTES ABSOLUTE AUTO 0.59 K/uL (0.00-0.80); MONOCYTES PERCENT AUTO 9.6 % (0.0-8.0); NEUTROPHILS PERCENT AUTO 66.5 % (41.0-71.0); PLATELET COUNT,PLT 175 K/uL (150-400); RED BLOOD CELL COUNT 4.27 M/uL (4.10-5.30); WHITE BLOOD CELL COUNT,WBC 6.16 K/uL (3.9-11.3)
[2024-07-09] MEDS: Sodium Chloride 0.9% 1,000 ML IV ONE (15:42)
[2024-07-09 15:53] LABS: A/G RATIO 0.9 (0.9-1.6); ALBUMIN 3.6 g/dL (3.4-5.0); BILIRUBIN TOTAL 0.7 mg/dL (0.2-1.0); CALCIUM 9.5 mg/dL (8.5-10.1); EST CRCL DRUG DOSING (CG) 40.81 mL/min; MAGNESIUM 1.6 mg/dL (1.8-2.4); POTASSIUM,K 3.6 mmol/L (3.5-5.1); PROTEIN TOTAL,TP 7.7 g/dL (6.4-8.2)
[2024-07-09 16:16] LABS: CORONAVIRUS COVID-19 NAA NEGATIVE (NEGATIVE); INFLUENZA A NAA NEGATIVE (NEGATIVE); INFLUENZA B NAA NEGATIVE (NEGATIVE); RESPIRATORY SYNCYTIAL VIR NAA NEGATIVE (NEGATIVE)
[2024-07-09] MEDS: Iopamidol 755 MG/ML 500 ML Multipack Bottle IVPUSH STA (16:31)
[2024-07-09 16:53] LABS: APPEARANCE,URINE CLEAR; BILIRUBIN,URINE NEGATIVE (NEGATIVE); COLOR,URINE YELLOW; GLUCOSE,URINE NEGATIVE (NEGATIVE); KETONES,URINE NEGATIVE (NEGATIVE); LEUKOCYTE ESTERASE,URINE NEGATIVE (NEGATIVE); NITRITE,URINE NEGATIVE (NEGATIVE); OCCULT BLOOD,URINE NEGATIVE (NEGATIVE); PH,URINE 5.5 (5.0-8.0); PROTEIN,URINE NEGATIVE (NEGATIVE); UROBILINOGEN,URINE 0.2 EU/dL (<2.0)
[2024-07-09] MEDS: Acetaminophen 500 MG Tab PO ONE (17:41)
[2024-07-09] MEDS: metroNIDAZOLE 250 MG Tab PO ONE (20:35)
[2024-07-09] MEDS: Ketorolac 30 MG/ML SDV IVPUSH ONE (20:35)
[2024-07-09] MEDS: Sulfamethoxazole/Trimethoprim 800-160 MG Tab PO ONE (20:35)
[2024-07-09 21:04] VITALS: BP 152/84; PULSE 81
== END 2024-07-09 21:03 | disposition home or self-care (01) ==
LOC: MW.ED 14:23
DX: K57.32 Diverticulitis of large intestine without perforation or abscess without bleeding (principal); R51.9 Headache, unspecified; R91.1 Solitary pulmonary nodule; I10 Essential (primary) hypertension; E78.00 Pure hypercholesterolemia, unspecified; K21.9 Gastro-esophageal reflux disease without esophagitis; E11.9 Type 2 diabetes mellitus without complications; E66.9 Obesity, unspecified; Z90.710 Acquired absence of both cervix and uterus; Z79.899 Other long term (current) drug therapy; Z79.84 Long term (current) use of oral hypoglycemic drugs; Z88.1 Allergy status to other antibiotic agents; Z88.0 Allergy status to penicillin; Z88.8 Allergy status to other drugs, medicaments and biological substances; Z91.013 Allergy to seafood; Z75.8 Other problems related to medical facilities and other health care; Z68.43 Body mass index [BMI] 50.0-59.9, adult
CPT/HCPCS: 0241U; 36415; 70450; 71046; 74177; 80053; 81003; 83690; 83735; 85025; 85379; 96361; 96374; 99284; A9270; J1885; J7030; Q9967

== ENCOUNTER 2024-09-14 17:06 | Inpatient (IN) | payer BC, MEDICARE ==
[2024-09-14 17:43] LABS: BASE EXCESS VENOUS 5.9 (-2.0-3.0); BASOPHILS ABSOLUTE AUTO 0.02 K/uL (0.00-0.20); BASOPHILS PERCENT AUTO 0.3 % (0.0-1.0); EOSINOPHILS ABSOLUTE AUTO 0.06 K/uL (0.00-0.45); EOSINOPHILS PERCENT AUTO 0.8 % (0.0-6.0); HEMOGLOBIN 13.2 g/dL (12.0-16.0); IMMATURE GRAN ABSOLUTE AUTO 0.06 K/uL (0.00-0.05); IMMATURE GRAN PERCENT AUTO 0.8 % (0.0-0.4); LYMPHOCYTES ABSOLUTE AUTO 1.39 K/uL (1.00-4.80); LYMPHOCYTES PERCENT AUTO 17.9 % (24.0-44.0); MEAN CORPUSCULAR HEMOGLOBIN 31.8 pg (28.0-32.0); MEAN CORPUSCULAR HGB CONC 34.7 g/dL (32.0-36.0); MEAN CORPUSCULAR VOLUME 91.6 fL (83.0-99.0); MONOCYTES ABSOLUTE AUTO 0.57 K/uL (0.00-0.80); MONOCYTES PERCENT AUTO 7.3 % (0.0-8.0); NEUTROPHILS ABSOLUTE AUTO 5.66 K/uL (1.80-7.70); NEUTROPHILS PERCENT AUTO 72.9 % (41.0-71.0); PH,VENOUS 7.49 (7.32-7.43); PLATELET COUNT,PLT 181 K/uL (150-400); RED BLOOD CELL COUNT 4.15 M/uL (4.10-5.30); WHITE BLOOD CELL COUNT,WBC 7.76 K/uL (3.9-11.3)
[2024-09-14 18:21] LABS: A/G RATIO 0.9 (0.9-1.6); ALBUMIN 3.3 g/dL (3.4-5.0); BILIRUBIN TOTAL 0.6 mg/dL (0.2-1.0); CALCIUM 9.4 mg/dL (8.5-10.1); CARBON DIOXIDE,CO2 27.9 mmol/L (21.0-32.0); CREATININE 1.3 mg/dL (0.6-1.0); EST CRCL DRUG DOSING (CG) 29.95 mL/min; POTASSIUM,K 2.7 mmol/L (3.5-5.1); PROTEIN TOTAL,TP 6.8 g/dL (6.4-8.2)
[2024-09-14] MEDS: Potassium Chloride 20 MEQ Tab.ER PO ONE (19:00)
[2024-09-14 19:22] LABS: BILIRUBIN,URINE NEGATIVE (NEGATIVE); COLOR,URINE YELLOW; GLUCOSE,URINE NEGATIVE (NEGATIVE); KETONES,URINE 15 mg/dL (NEGATIVE); LEUKOCYTE ESTERASE,URINE SMALL (NEGATIVE); NITRITE,URINE NEGATIVE (NEGATIVE); OCCULT BLOOD,URINE NEGATIVE (NEGATIVE); PH,URINE 5.5 (5.0-8.0); PROTEIN,URINE 30 mg/dL (NEGATIVE); UROBILINOGEN,URINE 0.2 EU/dL (<2.0)
[2024-09-14 19:35] LABS: APPEARANCE,URINE HAZY
[2024-09-14] MEDS: Potassium Chloride 20 MEQ in Premix Bag 1 BAG IV ONE (19:40)
[2024-09-14] MEDS: Magnesium Sulf/Wat 2 GM/50 mL 2 GM in Premix Bag 1 BAG IV ONE (19:41)
[2024-09-14 19:46] LABS: EPITHELIAL CELLS,URINE FEW (NONE-FEW); RBC,URINE 0-1 (0-2/HPF); WBC,URINE 15-18 (0-5/HPF)
[2024-09-14 19:50] LABS: BACTERIA,URINE 1+ (NEGATIVE)
[2024-09-14] MEDS: metroNIDAZOLE/Normal Saline 500 MG in Premix Bag 1 BAG IV SCH (22:36)
[2024-09-14] MEDS: Ondansetron 4 MG/2 ML SDV IVPUSH PRN (22:55)
[2024-09-14] MEDS: VANCOmycin 1 GM in Sodium Chloride 0.9% 250 ML IV SCH (23:16)
[2024-09-14 23:19] LABS: CALCIUM 9.9 mg/dL (8.5-10.1); CARBON DIOXIDE,CO2 25.6 mmol/L (21.0-32.0); CREATININE 1.2 mg/dL (0.6-1.0); EST CRCL DRUG DOSING (CG) 32.45 mL/min; MAGNESIUM 2.1 mg/dL (1.8-2.4); POTASSIUM,K 3.5 mmol/L (3.5-5.1)
[2024-09-14 23:28] LABS: LACTIC ACID 1.2 mmol/L (0.4-2.0)
[2024-09-15] MEDS: Sodium Chloride 0.9% 1,000 ML IV SCH (02:20)
[2024-09-15] MEDS: VANCOmycin 125 MG Cap PO SCH (05:48)
[2024-09-15 08:01] LABS: BASOPHILS ABSOLUTE AUTO 0.02 K/uL (0.00-0.20); BASOPHILS PERCENT AUTO 0.2 % (0.0-1.0); EOSINOPHILS ABSOLUTE AUTO 0.12 K/uL (0.00-0.45); EOSINOPHILS PERCENT AUTO 1.5 % (0.0-6.0); HEMATOCRIT 37.4 % (37.0-47.0); HEMOGLOBIN 13.2 g/dL (12.0-16.0); IMMATURE GRAN ABSOLUTE AUTO 0.09 K/uL (0.00-0.05); IMMATURE GRAN PERCENT AUTO 1.1 % (0.0-0.4); LYMPHOCYTES ABSOLUTE AUTO 1.96 K/uL (1.00-4.80); LYMPHOCYTES PERCENT AUTO 24.2 % (24.0-44.0); MEAN CORPUSCULAR HEMOGLOBIN 32.4 pg (28.0-32.0); MEAN CORPUSCULAR HGB CONC 35.3 g/dL (32.0-36.0); MEAN CORPUSCULAR VOLUME 91.9 fL (83.0-99.0); MEAN PLATELET VOLUME 12.9 fL (9.4-12.3); MONOCYTES ABSOLUTE AUTO 0.79 K/uL (0.00-0.80); MONOCYTES PERCENT AUTO 9.8 % (0.0-8.0); NEUTROPHILS ABSOLUTE AUTO 5.12 K/uL (1.80-7.70); NEUTROPHILS PERCENT AUTO 63.2 % (41.0-71.0); PLATELET COUNT,PLT 191 K/uL (150-400); RED BLOOD CELL COUNT 4.07 M/uL (4.10-5.30)
[2024-09-15 08:19] LABS: CALCIUM 9.3 mg/dL (8.5-10.1); CARBON DIOXIDE,CO2 22.6 mmol/L (21.0-32.0); CREATININE 1.2 mg/dL (0.6-1.0); EST CRCL DRUG DOSING (CG) 32.45 mL/min; MAGNESIUM 1.8 mg/dL (1.8-2.4)
[2024-09-15] MEDS: Acetaminophen 325 MG Tab PO PRN (09:49)
[2024-09-15] MEDS: Carbidopa/Levodopa 25-100 MG Tab PO SCH (13:37)
[2024-09-15] MEDS: Gabapentin 300 MG Cap PO SCH (13:37)
[2024-09-15] MEDS: atorvaSTATin 10 MG Tab PO SCH (20:21)
[2024-09-16 06:12] LABS: BASOPHILS ABSOLUTE AUTO 0.03 K/uL (0.00-0.20); BASOPHILS PERCENT AUTO 0.7 % (0.0-1.0); EOSINOPHILS ABSOLUTE AUTO 0.14 K/uL (0.00-0.45); EOSINOPHILS PERCENT AUTO 3.1 % (0.0-6.0); HEMOGLOBIN 10.4 g/dL (12.0-16.0); IMMATURE GRAN ABSOLUTE AUTO 0.11 K/uL (0.00-0.05); IMMATURE GRAN PERCENT AUTO 2.4 % (0.0-0.4); LYMPHOCYTES ABSOLUTE AUTO 1.81 K/uL (1.00-4.80); MEAN CORPUSCULAR HGB CONC 32.5 g/dL (32.0-36.0); MEAN CORPUSCULAR VOLUME 95.2 fL (83.0-99.0); MEAN PLATELET VOLUME 13.3 fL (9.4-12.3); NEUTROPHILS ABSOLUTE AUTO 1.94 K/uL (1.80-7.70); NEUTROPHILS PERCENT AUTO 42.8 % (41.0-71.0); PLATELET COUNT,PLT 141 K/uL (150-400); RED BLOOD CELL COUNT 3.36 M/uL (4.10-5.30); WHITE BLOOD CELL COUNT,WBC 4.53 K/uL (3.9-11.3)
[2024-09-16 06:40] LABS: A/G RATIO 0.9 (0.9-1.6); ALBUMIN 2.5 g/dL (3.4-5.0); BILIRUBIN TOTAL 0.4 mg/dL (0.2-1.0); CALCIUM 8.1 mg/dL (8.5-10.1); CARBON DIOXIDE,CO2 23.1 mmol/L (21.0-32.0); EST CRCL DRUG DOSING (CG) 38.94 mL/min; MAGNESIUM 1.5 mg/dL (1.8-2.4); PROTEIN TOTAL,TP 5.2 g/dL (6.4-8.2)
[2024-09-16] MEDS: Hydrochlorothiazide/Losartan 12.5-50 mg Tab PO SCH (08:51)
[2024-09-16] MEDS: Metoprolol Succinate 100 MG Tab.ER PO SCH (08:51)
[2024-09-16 09:41] VITALS: BP 132/85; PULSE 78
== END 2024-09-16 10:15 | disposition home or self-care (01) | DRG 244 ==
LOC: MW.ED 17:06 → MW.MS 19:12
PROVIDERS: ADMIT Internal Medicine; ATTEND Internal Medicine
DX: K57.32 Diverticulitis of large intestine without perforation or abscess without bleeding (principal); A04.72 Enterocolitis due to Clostridium difficile, not specified as recurrent; K21.9 Gastro-esophageal reflux disease without esophagitis; G20.A1 Parkinson's disease without dyskinesia, without mention of fluctuations; F02.80 Dementia in other diseases classified elsewhere, unspecified severity, without behavioral disturbance, psychotic disturbance, mood disturbance, and anxiety; E78.5 Hyperlipidemia, unspecified; I10 Essential (primary) hypertension; E11.9 Type 2 diabetes mellitus without complications; Z96.659 Presence of unspecified artificial knee joint; Z79.4 Long term (current) use of insulin; Z88.1 Allergy status to other antibiotic agents; Z88.8 Allergy status to other drugs, medicaments and biological substances; Z88.0 Allergy status to penicillin; Z90.710 Acquired absence of both cervix and uterus; Z90.722 Acquired absence of ovaries, bilateral; Z98.51 Tubal ligation status
CPT/HCPCS: 36415; 74176; 74176-26; 80048; 80053; 81001; 82803; 83036; 83605; 83690; 83735; 83880; 84484; 85025; 87045; 87046; 87086; 87324; 87428-QW; 87449; 87493; 87899; 93005; 93010; 99285; A9270-GY; J0457; J1836; J2405; J3475; J3480; J7030; J7050

== ENCOUNTER 2024-12-22 08:31 | Inpatient (IN) | payer BC ==
[2024-12-22] MEDS ORDERED: Sodium Chloride 0.9% 2.5 ML Syringe FLUSH PRN (10:03)
[2024-12-22 10:15] LABS: GLUCOSE,URINE NEGATIVE (NEGATIVE); OCCULT BLOOD,URINE NEGATIVE (NEGATIVE)
[2024-12-22 10:17] LABS: APPEARANCE,URINE SLT CLOUDY
[2024-12-22 10:42] LABS: EPITHELIAL CELLS,URINE OCCASIONAL (NONE-FEW)
[2024-12-22 10:43] LABS: FINE GRANULAR CASTS,URINE 0-2 (NEGATIVE)
[2024-12-22] MEDS: Sodium Chloride 0.9% 10 ML Syringe FLUSH PRN (10:43)
[2024-12-22 10:46] LABS: BASOPHILS ABSOLUTE AUTO 0.03 K/uL (0.00-0.20); BASOPHILS PERCENT AUTO 0.2 % (0.0-1.0); EOSINOPHILS ABSOLUTE AUTO 0.05 K/uL (0.00-0.45); EOSINOPHILS PERCENT AUTO 0.4 % (0.0-6.0); IMMATURE GRAN ABSOLUTE AUTO 0.04 K/uL (0.00-0.05); IMMATURE GRAN PERCENT AUTO 0.3 % (0.0-0.4); LYMPHOCYTES ABSOLUTE AUTO 1.32 K/uL (1.00-4.80); LYMPHOCYTES PERCENT AUTO 11.0 % (24.0-44.0); MEAN PLATELET VOLUME 12.6 fL (9.4-12.3); MONOCYTES ABSOLUTE AUTO 0.74 K/uL (0.00-0.80); MONOCYTES PERCENT AUTO 6.2 % (0.0-8.0); NEUTROPHILS ABSOLUTE AUTO 9.83 K/uL (1.80-7.70); NEUTROPHILS PERCENT AUTO 81.9 % (41.0-71.0); NRBC ABSOLUTE 0.00 K/uL (0.00-0.02); NRBC PERCENT 0.0 /100WBC (0.0-0.2); PLATELET COUNT,PLT 185 K/uL (150-400); RED BLOOD CELL COUNT 3.95 M/uL (4.10-5.30); WHITE BLOOD CELL COUNT,WBC 12.01 K/uL (3.9-11.3)
[2024-12-22 11:04] LABS: A/G RATIO 1.1 (0.9-1.6); ALANINE AMINOTRANSFERASE,ALT 10 IU/L (14-63); ASPARTATE AMNIOTRANSFERASE,AST 10 IU/L (15-37); BILIRUBIN TOTAL 1.6 mg/dL (0.2-1.0); BLOOD UREA NITROGEN,BUN 30 mg/dL (7.0-18.0); CARBON DIOXIDE,CO2 26.9 mmol/L (21.0-32.0); CHLORIDE,CL 100 mmol/L (98-107); CREATININE 1.8 mg/dL (0.6-1.0); ESTIMATED GFR 30 mL/min (>60); GLUCOSE RANDOM 127 mg/dL (74-106); POTASSIUM,K 3.4 mmol/L (3.5-5.1); PROTEIN TOTAL,TP 6.9 g/dL (6.4-8.2); SODIUM,NA 138 mmol/L (136-145)
[2024-12-22 11:06] LABS: LACTIC ACID 2.0 mmol/L (0.4-2.0)
[2024-12-22] MEDS: Magnesium Sulfate 2 GM/50 mL 2 GM in Premix Bag 1 BAG IV ONE (12:09)
[2024-12-22] MEDS: Iopamidol 755 MG/ML 500 ML Multipack Bottle IVPUSH STA (12:51)
[2024-12-22] MEDS: diphenhydrAMINE 50 MG/ML SDV IVPUSH ONE (13:09)
[2024-12-22] MEDS: Aztreonam 1 GM in Water For Injection, Sterile 10 ML IVPUSH ONE (16:55)
[2024-12-22] MEDS ORDERED: Naloxone 0.4 MG/ML SDV IVPUSH PRN (22:56)
[2024-12-22] MEDS: RIVASTIGMINE 1.5 MG PO SCH (23:49)
[2024-12-23 06:36] LABS: BASOPHILS ABSOLUTE AUTO 0.01 K/uL (0.00-0.20); BASOPHILS PERCENT AUTO 0.1 % (0.0-1.0); EOSINOPHILS ABSOLUTE AUTO 0.02 K/uL (0.00-0.45); EOSINOPHILS PERCENT AUTO 0.2 % (0.0-6.0); IMMATURE GRAN ABSOLUTE AUTO 0.02 K/uL (0.00-0.05); IMMATURE GRAN PERCENT AUTO 0.2 % (0.0-0.4); LYMPHOCYTES ABSOLUTE AUTO 0.90 K/uL (1.00-4.80); LYMPHOCYTES PERCENT AUTO 10.7 % (24.0-44.0); MEAN PLATELET VOLUME 12.9 fL (9.4-12.3); MONOCYTES ABSOLUTE AUTO 0.68 K/uL (0.00-0.80); MONOCYTES PERCENT AUTO 8.0 % (0.0-8.0); NEUTROPHILS ABSOLUTE AUTO 6.82 K/uL (1.80-7.70); NEUTROPHILS PERCENT AUTO 80.8 % (41.0-71.0); NRBC ABSOLUTE 0.00 K/uL (0.00-0.02); NRBC PERCENT 0.0 /100WBC (0.0-0.2); PLATELET COUNT,PLT 149 K/uL (150-400); RED BLOOD CELL COUNT 3.89 M/uL (4.10-5.30); WHITE BLOOD CELL COUNT,WBC 8.45 K/uL (3.9-11.3)
[2024-12-23 07:01] LABS: A/G RATIO 0.9 (0.9-1.6); ASPARTATE AMNIOTRANSFERASE,AST 15.0 IU/L (15-37); BILIRUBIN TOTAL 1.0 mg/dL (0.2-1.0); BLOOD UREA NITROGEN,BUN 19.0 mg/dL (7.0-18.0); CARBON DIOXIDE,CO2 23.2 mmol/L (21.0-32.0); CHLORIDE,CL 105.0 mmol/L (98-107); CREATININE 1.4 mg/dL (0.6-1.0); EST CRCL DRUG DOSING (CG) 26.47 mL/min; GLUCOSE RANDOM 121.0 mg/dL (74-106); POTASSIUM,K 3.6 mmol/L (3.5-5.1); PROTEIN TOTAL,TP 6.2 g/dL (6.4-8.2); SODIUM,NA 141.0 mmol/L (136-145)
[2024-12-23 07:03] LABS: ESTIMATED GFR 40.0 mL/min (>60)
[2024-12-23 07:31] LABS: ALANINE AMINOTRANSFERASE,ALT 10.0 IU/L (14-63)
[2024-12-24 06:32] LABS: BASOPHILS ABSOLUTE AUTO 0.02 K/uL (0.00-0.20); BASOPHILS PERCENT AUTO 0.3 % (0.0-1.0); EOSINOPHILS ABSOLUTE AUTO 0.13 K/uL (0.00-0.45); EOSINOPHILS PERCENT AUTO 1.6 % (0.0-6.0); IMMATURE GRAN ABSOLUTE AUTO 0.06 K/uL (0.00-0.05); IMMATURE GRAN PERCENT AUTO 0.8 % (0.0-0.4); LYMPHOCYTES ABSOLUTE AUTO 1.16 K/uL (1.00-4.80); LYMPHOCYTES PERCENT AUTO 14.5 % (24.0-44.0); MEAN PLATELET VOLUME 12.5 fL (9.4-12.3); MONOCYTES ABSOLUTE AUTO 0.65 K/uL (0.00-0.80); MONOCYTES PERCENT AUTO 8.1 % (0.0-8.0); NEUTROPHILS ABSOLUTE AUTO 5.96 K/uL (1.80-7.70); NEUTROPHILS PERCENT AUTO 74.7 % (41.0-71.0); NRBC ABSOLUTE 0.00 K/uL (0.00-0.02); NRBC PERCENT 0.0 /100WBC (0.0-0.2); PLATELET COUNT,PLT 155 K/uL (150-400); RED BLOOD CELL COUNT 3.43 M/uL (4.10-5.30); WHITE BLOOD CELL COUNT,WBC 7.98 K/uL (3.9-11.3)
[2024-12-24 06:58] LABS: BLOOD UREA NITROGEN,BUN 12.0 mg/dL (7.0-18.0); CARBON DIOXIDE,CO2 22.4 mmol/L (21.0-32.0); CHLORIDE,CL 108.0 mmol/L (98-107); CREATININE 1.1 mg/dL (0.6-1.0); EST CRCL DRUG DOSING (CG) 33.69 mL/min; ESTIMATED GFR 54.0 mL/min (>60); GLUCOSE RANDOM 109.0 mg/dL (74-106); POTASSIUM,K 2.7 mmol/L (3.5-5.1); SODIUM,NA 142.0 mmol/L (136-145)
[2024-12-24] MEDS: Potassium Chloride 20 MEQ Tab.ER PO SCH (09:49)
[2024-12-24] MEDS: Magnesium Sulfate 4 GM/100 mL 4 GM in Premix Bag 1 BAG IV ONE (09:53)
[2024-12-24] MEDS: NS with KCl 40mEq 1,000 ML IV SCH (09:55)
[2024-12-24 15:25] LABS: BLOOD UREA NITROGEN,BUN 10.0 mg/dL (7.0-18.0); CARBON DIOXIDE,CO2 19.7 mmol/L (21.0-32.0); CHLORIDE,CL 109.0 mmol/L (98-107); CREATININE 1.0 mg/dL (0.6-1.0); EST CRCL DRUG DOSING (CG) 37.06 mL/min; ESTIMATED GFR 60.0 mL/min (>60); GLUCOSE RANDOM 91.0 mg/dL (74-106); POTASSIUM,K 3.5 mmol/L (3.5-5.1); SODIUM,NA 142.0 mmol/L (136-145)
[2024-12-24] MEDS: Heparin Sodium 5,000 Units/ML Vial SUBCUT SCH (20:50)
[2024-12-24] MEDS: Ondansetron 4 MG/2 ML SDV IVPUSH PRN (23:14)
[2024-12-25 06:17] LABS: BASOPHILS ABSOLUTE AUTO 0.02 K/uL (0.00-0.20); BASOPHILS PERCENT AUTO 0.4 % (0.0-1.0); EOSINOPHILS ABSOLUTE AUTO 0.14 K/uL (0.00-0.45); EOSINOPHILS PERCENT AUTO 2.5 % (0.0-6.0); IMMATURE GRAN ABSOLUTE AUTO 0.12 K/uL (0.00-0.05); IMMATURE GRAN PERCENT AUTO 2.2 % (0.0-0.4); LYMPHOCYTES ABSOLUTE AUTO 1.13 K/uL (1.00-4.80); LYMPHOCYTES PERCENT AUTO 20.5 % (24.0-44.0); MEAN PLATELET VOLUME 12.5 fL (9.4-12.3); MONOCYTES ABSOLUTE AUTO 0.43 K/uL (0.00-0.80); MONOCYTES PERCENT AUTO 7.8 % (0.0-8.0); NEUTROPHILS ABSOLUTE AUTO 3.68 K/uL (1.80-7.70); NEUTROPHILS PERCENT AUTO 66.6 % (41.0-71.0); NRBC ABSOLUTE 0.00 K/uL (0.00-0.02); NRBC PERCENT 0.0 /100WBC (0.0-0.2); PLATELET COUNT,PLT 156 K/uL (150-400); RED BLOOD CELL COUNT 3.38 M/uL (4.10-5.30); WHITE BLOOD CELL COUNT,WBC 5.52 K/uL (3.9-11.3)
[2024-12-25 06:42] LABS: A/G RATIO 0.8 (0.9-1.6); ASPARTATE AMNIOTRANSFERASE,AST 22 IU/L (15-37); BILIRUBIN TOTAL 0.4 mg/dL (0.2-1.0); BLOOD UREA NITROGEN,BUN 6 mg/dL (7.0-18.0); CARBON DIOXIDE,CO2 23.9 mmol/L (21.0-32.0); CHLORIDE,CL 112 mmol/L (98-107); CREATININE 0.9 mg/dL (0.6-1.0); EST CRCL DRUG DOSING (CG) 41.18 mL/min; GLUCOSE RANDOM 121 mg/dL (74-106); PHOSPHORUS 2.2 mg/dL (2.6-4.7); POTASSIUM,K 3.9 mmol/L (3.5-5.1); PROTEIN TOTAL,TP 5.3 g/dL (6.4-8.2); SODIUM,NA 144 mmol/L (136-145)
[2024-12-25 06:44] LABS: ESTIMATED GFR 68 mL/min (>60)
[2024-12-25] MEDS: Hydrochlorothiazide/Losartan 12.5-50 mg Tab PO SCH (12:14)
[2024-12-25] MEDS: Metoprolol Succinate 100 MG Tab.ER PO SCH (12:15)
[2024-12-25] MEDS: Phosphorus #1 250 MG Tab PO SCH (12:15)
[2024-12-26 08:07] LABS: BASOPHILS ABSOLUTE AUTO 0.03 K/uL (0.00-0.20); BASOPHILS PERCENT AUTO 0.6 % (0.0-1.0); EOSINOPHILS ABSOLUTE AUTO 0.11 K/uL (0.00-0.45); EOSINOPHILS PERCENT AUTO 2.1 % (0.0-6.0); IMMATURE GRAN ABSOLUTE AUTO 0.23 K/uL (0.00-0.05); IMMATURE GRAN PERCENT AUTO 4.4 % (0.0-0.4); LYMPHOCYTES ABSOLUTE AUTO 1.71 K/uL (1.00-4.80); LYMPHOCYTES PERCENT AUTO 32.4 % (24.0-44.0); MEAN PLATELET VOLUME 11.9 fL (9.4-12.3); MONOCYTES ABSOLUTE AUTO 0.48 K/uL (0.00-0.80); MONOCYTES PERCENT AUTO 9.1 % (0.0-8.0); NEUTROPHILS ABSOLUTE AUTO 2.72 K/uL (1.80-7.70); NEUTROPHILS PERCENT AUTO 51.4 % (41.0-71.0); NRBC ABSOLUTE 0.00 K/uL (0.00-0.02); NRBC PERCENT 0.0 /100WBC (0.0-0.2); PLATELET COUNT,PLT 173 K/uL (150-400); RED BLOOD CELL COUNT 3.43 M/uL (4.10-5.30); WHITE BLOOD CELL COUNT,WBC 5.28 K/uL (3.9-11.3)
[2024-12-26 08:35] LABS: A/G RATIO 0.8 (0.9-1.6); ALANINE AMINOTRANSFERASE,ALT 6.0 IU/L (14-63); ASPARTATE AMNIOTRANSFERASE,AST 21.0 IU/L (15-37); BILIRUBIN TOTAL 0.2 mg/dL (0.2-1.0); BLOOD UREA NITROGEN,BUN 6.0 mg/dL (7.0-18.0); CARBON DIOXIDE,CO2 22.0 mmol/L (21.0-32.0); CHLORIDE,CL 110.0 mmol/L (98-107); CREATININE 1.0 mg/dL (0.6-1.0); EST CRCL DRUG DOSING (CG) 37.06 mL/min; GLUCOSE RANDOM 117.0 mg/dL (74-106); PHOSPHORUS 3.3 mg/dL (2.6-4.7); POTASSIUM,K 4.2 mmol/L (3.5-5.1); PROTEIN TOTAL,TP 5.7 g/dL (6.4-8.2); SODIUM,NA 144.0 mmol/L (136-145)
[2024-12-26 08:38] LABS: ESTIMATED GFR 60.0 mL/min (>60)
[2024-12-26 11:33] VITALS: BP 143/73; PULSE 60
== END 2024-12-26 11:50 | disposition home or self-care (01) | DRG 248 ==
LOC: MW.ED 08:31 → MW.MS 17:47
PROVIDERS: ADMIT Family Medicine; ATTEND Family Medicine
DX: A04.71 Enterocolitis due to Clostridium difficile, recurrent (principal); N17.9 Acute kidney failure, unspecified; K57.92 Diverticulitis of intestine, part unspecified, without perforation or abscess without bleeding; E87.6 Hypokalemia; E78.00 Pure hypercholesterolemia, unspecified; I10 Essential (primary) hypertension; K21.9 Gastro-esophageal reflux disease without esophagitis; M19.90 Unspecified osteoarthritis, unspecified site; Z96.659 Presence of unspecified artificial knee joint; E66.9 Obesity, unspecified; G20.A1 Parkinson's disease without dyskinesia, without mention of fluctuations; F02.B0 Dementia in other diseases classified elsewhere, moderate, without behavioral disturbance, psychotic disturbance, mood disturbance, and anxiety; E11.9 Type 2 diabetes mellitus without complications; R91.1 Solitary pulmonary nodule; E83.42 Hypomagnesemia; Z88.0 Allergy status to penicillin; Z88.1 Allergy status to other antibiotic agents; Z91.013 Allergy to seafood; Z91.041 Radiographic dye allergy status; Z91.018 Allergy to other foods; Z88.8 Allergy status to other drugs, medicaments and biological substances; Z79.899 Other long term (current) drug therapy; Z68.41 Body mass index [BMI] 40.0-44.9, adult; Z90.710 Acquired absence of both cervix and uterus; Z90.722 Acquired absence of ovaries, bilateral; Z98.51 Tubal ligation status
CPT/HCPCS: 36415; 71046; 71046-26; 71260; 71260-26; 74177; 74177-26; 80048; 80053; 81001; 82947; 83605; 83690; 83735; 84100; 85025; 87040; 87086; 87324; 96361; 96365; 96366; 96368; 96375; 97162-GP; 97530-GP; 99222; 99231; 99232; 99239; 99284; 99285-25; A9270-GY; J0457; J1200; J1644; J2405; J3475; J3480; J7030; J7050; Q9967